=== PATIENT | male | born 1965 | race African-American/Black ===

== ENCOUNTER → 2024-08-28 | Outpatient (CLI) | payer MEDICAID, SELFPAY ==
--- NOTE | 2024-08-28 09:14 | US_ITS ---
PROCEDURE: ABDOMEN LIMITED 08/28/2024 REASON FOR EXAM: ABDOMINAL PAIN COMPARISON: None FINDINGS: Liver: Diffusely echogenic suggesting fatty infiltration. Hepatomegaly. The liver measures 18.5 cm. Gallbladder: Surgically absent. Common bile duct: The common bile duct measures 4 mm. . Pancreas: Visualized portions are unremarkable. The distal body and tail are obscured by bowel gas. Other: Visualized portions of the right kidney are unremarkable. No right upper quadrant ascites. The spleen measures 12 cm x 3.6 cm x 3.1 cm. US/Abdomen Limited IMPRESSION: Hepatomegaly and fatty infiltration of the liver. Status post cholecystectomy. The spleen is not enlarged. Reading Location: [facility]
== END | disposition home or self-care (01) ==
LOC: US 09:11
PROVIDERS: PCP Internal Medicine Infectious Disease; Referring Provider Nurse Practitioner Acute Care; Visit Provider Nurse Practitioner Acute Care
DX: R10.9 Unspecified abdominal pain (principal)
CPT/HCPCS: 76705

== ENCOUNTER → 2024-09-05 | Outpatient (CLI) | payer MEDICAID, SELFPAY ==
--- NOTE | 2024-09-05 08:08 | US_ITS ---
PROCEDURE: ELASTOGRAPHY PARENCHYMA/ORGAN, 09/05/2024 REASON FOR EXAM: HEPATOMEGALY, LIVER STEATOSIS COMPARISON: 08/28/2024 TECHNIQUE: Elastography was performed for non-invasive assessment of liver tissue stiffness utilizing a [employer] S-shear wave imaging unit. FINDINGS: Hepatic elastography: Number of measurements: 15 measurements across 3 regions, 5 measurements per region. US probe: CA1-7A. EQI median: 10.1 kPa EQI median velocity: 1.83 m/s IQR/Med: 12.8-29.4% (kPa) and 6.1-14.6% (m/s). If the IQR/Med is IQR/median >30% (for kPa) or >15% in m/s, the variance in the measurements is a large and the accuracy of the measurement may be in question. US/Elastography Parenchyma/Organ IMPRESSION: 1. Liver stiffness is 10.1 kPa. Per the below 2020 SRU criteria, this is sugges tive of compensated advanced chronic liver disease but requires further testing for confirmation. 2. Additional description as above. Assessment is per the Update to the SRU Liver Elastography Consensus Statement (2020) Note that the above assessment of liver fibrosis is vendor-neutral and intended for use in fibrosis related to viral etiologies and non-alcoholic fatty-liver disease (NAFLD); in causes other than viral hepat itis and NAFLD, the cutoff values are currently not well established. In some patients with NAFLD, the cutoff values for cACLD may be lower (7-9 kPa). Note also that in the setting of elevated LFTs, nonfasting or vascular congestion, the stage of lifer fibrosis may be overestimated. Previous SRU reference values: <1.37 m/s (5.7kPa): No to mild fibrosis 1.37 m/s - 2.2 m/s: Moderate to severe fibrosis >2.2 m/s (15kPa): Significant fibrosis / cirrhosis Reading Location: [id number]
--- OUTSIDE RECORDS SUMMARY | 2024-09-05 08:34 | XMS RPT_ITS | CCD ---
Author Organization [facility] Inform ion [facility] Care Team Providers Care [employer] Cracking Tester Name Role Phone BRIAN HAMM Unavailable Unava ilable JOSE GALEANA M.D. Unavailable JOSE Alfaro M.D. Unavailable UnavailLOU Chavez Unavailable Unavailable Unavailable Primary Care Provider UnavailIDA Anthony Attending Unavailable DAKOTA MALDONADO, DR GUERRERO Primary Care Physician KUNAL PRICE Attending Un available DAKOTA MALDONADO, DR GUERRERO Primary Care Unavailable Dakota MALDONADO, Dr. Guerrero Primary Care Provider [phone] Dakota MALDONADO, Dr. Guerrero Referring Provider Lou Gimenez Attending Provider KAYE HARDING MD Admitting UnavailKAYE Salcido MD Primary Care UnavailKAYE Salicdo MD Attending UnavailRHINA Vines MD Consulting Unavailable PROVIDER, UNKNOWN Consulting Unavailable PROVIDER, UNKNOWN Consulting Unavailable PROVIDER, UNKNOWN Consulting Unavailable KAYE HARDING MD Admitting UnavailKAYE Salcido MD Primary Care UnavailKAYE Salcido MD Attending UnavailRHINA Vines MD Consulting Unavailable PROVIDER, UNKNOWN Consulting Unavailable PROVIDER, UNKNOWN Consulting Unavailable PROVIDER, UNKNOWN Consulting Unavailable RHINA DUNCAN MD Admitting Unavailable RHINA DUNCAN MD Primary Care Unavailable RHINA DUNCAN MD Consulting Unavailable RHINA DUNCAN MD Attending Unavailable PROVIDER, UNKNOWN Consulting Unavailable PROVIDER, UNKNOWN Consulting Unavailable PROVIDER, UNKNOWN Consulting Unavailable Lou Gimenez Referring Provider Rhina Duncan Primary Care Unavailable Saman Duncaner Referring Unavailable Lou Paulino Attending [facility]available [facility] Unavailable Lou Paulino Attending Unavailable Lou Paulino Referring Unavailable [facility] Unavailable Lou Paulino Attending Unavailable Lou Paulino Referring Unavailable Medications Current Medications Medication Drug Class(es) Dates Sig (Normalized) Sig (Original) acetaminophen 325 mg oral capsule (3 sources) Start: 01-01-2023 acetaminophen 325 mg oral capsule Dose : 650 mg = 2 cap(s), Oral, q4h, PRN as needed for pain, # 20 cap(s), 0 Refill(s) Start Date: 01/01/23 Status: Ordered Quantity: 20.0 Unit: cap(s) Repeat number: 1 take 1 tablet by jey th every six hours as needed acetaminophen (TYLENOL) 325 mg tablet Ta ke 325 mg by mouth every 6 hours as needed. 0 Active Comment on above: Take 325 mg by mouth every 6 hours as needed. Budesonide-Formoterol (2 sources) Corticosteroid, beta2-Adrenergic Agonist Start: Budesonide-Formoterol (Symbicort) 160-4.5 mcg/actuation HFA aerosol inhaler Active 2 NMA INHALATION TWICE A DAY July 25, 2024 12:00am cholecalciferol 0.025 mg oral capsule (2 sources) Vitamin D Start: take 1 capsule by mouth once daily Cholecalciferol (Vitamin D3) 25 mcg (1,000 unit) capsule Active 50 ug PO daily July 25, 2024 12:00am cloZAPine 200 mg oral tablet (7 sources) Atypical Antipsychotic Start: End: take 1 tablet by mouth once daily Clozapine 200 mg tablet Active 500 mg PO .QD July 25, 2024 8:36am Start: 05-23-2020 Clozaril 100 m g oral tablet Dose : 500 mg = 5 tab(s), Oral, qHS, # 21 tab(s), 0 Refill(s) Start Date: 05/23/20 Status: Ordered Quantity: 21.0 Unit: tab(s) Repeat number: 1 Start: 11-05-2009 CLOZAPINE 25 M G TAB Take THREE (3) tablets four (4) times daily. 0 0 11/05/2009 Active Comment on above: Take THREE (3) table ts four (4) times daily. DULoxetine 20 mg delayed release oral capsule (2 sources) Serotonin and Norepinephrine Reuptake Inhibitor Start: take 2 capsules by mouth once daily Duloxetine (Cymbalta) 20 mg capsule,delayed release(DR/EC) Active 40 mg PO daily July 25, 2024 12:00am empagliflozin 25 mg oral tablet (5 sources) Sodium-Glucose Cotransporter 2 Inhibitor Start: take 1 tablet by mouth once daily Empagliflozin (Jardiance) 25 mg tablet Active 25 mg PO daily July 25, 2024 12:00am Start: 06-12-2021 Jardiance 10 m g oral tablet Dose : 10 mg = 1 tab(s), Oral, qAM, 0 Refill(s) Start Date: 06/12/21 Status: Ordered Repeat number: 1 famotidine 20 mg oral tablet (5 sources) Histamine-2 Receptor Antagonist Start: 07-24-2024 take 1 tablet by mouth once daily Famotidine 20 mg tablet Active 20 mg PO daily July 24, 2024 12:00am Start: 05-23-2020 famotidine 20 mg oral tablet Dose : 20 mg = 1 tab(s), Oral, BID, # 60 tab(s), 0 Refill(s) Start Date: 05/23/20 Status: Ordered Quantity: 60.0 Unit: tab(s) Repeat number: 1 fenofibrate 48 mg oral tablet (4 sources) Peroxisome Proliferator Receptor alpha Agonist Start: 07-25-2024 take 1 tablet by mouth once daily Fenofibrate Nanocrystallized 48 mg tablet Active 48 mg PO daily July 25, 2024 12:00am Start: 10-27-2023 fenofibrate 48 mg oral tablet Dose : 48 mg = 1 tab(s), Oral, qDay, # 90 tab(s), 0 Refill(s) Start Date: 10/27/23 Status: Ordered Quantity: 90.0 Unit: tab(s) Repeat number: 1 furosemide 20 mg oral tablet (5 sources) Loop Diuretic Start: 07-25-2024 take 1 tablet by mouth once daily Furosemide 20 mg tablet Active 20 mg PO daily July 25, 2024 12:00am Start: 05-24-2020 Lasix 20 mg or al tablet Dose : 20 mg = 1 tab(s), Oral, qDay, # 30 tab(s), 0 Refill(s) Start Date: 05/24/20 Status: Ordered Quantity: 30.0 Unit: tab(s) Repeat number: 1 3 ml insulin glargine 100 unt/ml pen injector (5 sources) Insulin Analog Start: 07-25-2024 Insulin Glargi ne (Lantus Solostar U-100 Insulin) 100 unit/mL (3 mL) insulin pen Active 25 U SC daily July 25, 2024 12:00am Start: 11-10-2022 LANTUS SOLOSTA R U-100 INSULIN 100 unit/mL (3 mL) Start: 03-12-2021 Lantus 100 uni ts/mL10 ml vial solution See Instructions, Subcutaneous qDay, 0 Refill(s) Start Date: 03/12/21 Status: Ordered Repeat number: 1 lactulose 667 mg/ml oral solution (5 sources) Osmotic Laxative Start: 07-25-2024 take 30 g by mouth twice daily Lactulose 10 gram/15 mL solution Active 30 g PO TWICE A DAY July 25, 2024 12:00am Start: 11-08-2022 lactulose 10 g sebastien/15 mL solution Start: 05-23-2020 take 1 dose by mouth twice chey ly lactulose 10 g/15 mL oral syrup Dose : 20 gram(s) = 30 mL, Oral, BID, # 420 mL, 0 Refill(s) Start Date: 05/23/20 Status: Ordered Quantity: 420.0 Unit: mL Repeat number: 1 metFORMIN hydrochloride 500 mg oral tablet (5 sources) Biguanide Start: 07-24-2024 take 1 tablet by mouth twice daily Metformin 500 mg tablet Active 500 mg PO TWICE A DAY July 24, 2024 12:00am Start: 11-05-2009 MetFORMIN (Eqv -Fortamet) 500 mg oral tablet, EXTENDED RELEASE Dose : 500 mg = 1 tab(s), Oral, BID, 0 Refill(s) Start Date: 03/12/21 Status: Ordered Repeat number: 1 Comment on above: Take one(1) tablet t wo(2) times daily. (BREAKFAST AND DINNER) metoprolol tartrate 50 mg oral tablet (5 sources) beta-Adrenergic Uli Start: 07-25-2024 take 1 tablet by mouth once daily Metoprolol Tartrate 50 mg tablet Active 50 mg PO daily July 25, 2024 12:00am Start: 10-08-2022 metoprolol suc cinate ER (TOPROL XL) 50 mg 24 hr tablet Start: 08-08-2020 metoprolol suc cinate 50 mg oral TABLET extended release Dose : 50 mg = 1 tab(s), Oral, qDay, Do not crush or chew (controlled release), # 30 tab(s), 5 Refill(s), Pharmacy: [facility] [place], 185.4, cm, 08/08/20 13:07:00 EDT, Height, kg, 08/08/20 13:07:00 EDT, Dosing Weight Start Date: 08/08/20 Status: Ordered Quantity: 30.0 Unit: tab(s) Repeat number: 6 nitroglycerin 0.4 mg sublingual tablet (5 sources) Nitrate Vasodilator Start: 07-24-2024 Nitroglyce rin 0.4 mg tablet, sublingual Active 0.4 mg SL Q5M as needed July 24, 2024 12:00am do not exceed 3 doses per episode Start: 05-23-2020 nitroglycerin 0.4 mg sublingual tablet 0.4 mg Dose = 1 tab(s), Sublingual, q5min, PRN as needed for chest pain, not to exceed 3 doses/15 min--if pain persists, seek medical attention, # 25 tab(s), 0 Refill(s) Start Date: 05/23/20 Status: Ordered Quantity: 25.0 Unit: tab(s) Repeat number: 1 Comment on above: as directed. microencapsulated potassium chloride 20 meq extended release oral tablet (5 sources) Start: 07-24-2024 Potassium Chloride (Klor-Con M20) 20 mEq tablet,ER particles/crystals Active 20 meq PO daily July 24, 2024 12:00am Start: 11-05-2009 POTASSIUM CHLO RIDE SR 10 MEQ TAB Take one(1) tablet daily. 0 0 11/05/2009 Active Start: 03-30-2008 potassium chlo ride 10 mEq capsule, ext release Dose : 20 mEq = 2 cap(s), Oral, Daily, current med (Hx) Start Date: 03/30/08 Status: Ordered Repeat number: 1 Comment on above: Take one(1) tablet d aily. sacubitril 97 mg / valsartan 103 mg oral tablet (4 sources) Angiotensin 2 Receptor Uli Start: 07-25-2024 Sacubitril-Valsartan (Entresto) 97-103 mg tablet Active 1 {tbl} PO TWICE A DAY July 25, 2024 12:00am Start: 11-06-2020 take 1 tablet by jey twice daily Entresto 97 mg-103 mg oral tablet Dose = 1 tab(s), Oral, BID, # 60 tab(s), 4 Refill(s), Pharmacy: [facility] [place], 185.4, cm, 11/06/20 13:00:00 EDT, Height, kg, 11/06/20 13:00:00 EDT, Dosing Weight Start Date: 11/06/20 Status: Ordered Quantity: 60.0 Unit: tab(s) Repeat number: 5 Senna Plus 50 mg-8.6 mg oral tablet (2 sources) Start: 05-23-2020 take 1 tablet by mouth twice daily Senna Plus 50 mg-8.6 mg oral tablet Dose = 2 tab(s), Oral, BID, 0 Refill(s) Start Date: 05/23/20 Status: Ordered Repeat number: 1 sennosides, shelter 8.6 mg oral capsule (2 sources) Start: 07-24-2024 take 1 capsule by mouth once daily as needed Sennosides (Senna) 8.6 mg capsule Active 8.6 mg PO daily as needed July 24, 2024 12:00am Symbicort 160 mcg-4.5 mcg/inh Inhaler (2 sources) Start: 10-27-2023 take 1 dose by inhalation twice daily Symbicort 160 mcg-4.5 mcg/inh Inhaler Dose = 2 puff(s), Inhalation, BID, # 10.2 gram(s), 0 Refill(s) Start Date: 10/27/23 Status: Ordered Quantity: 10.2 Unit: g Repeat number: 1 divalproex sodium 500 mg delayed release oral tablet (5 sources) Mood Stabilizer, Anti-epilepti c Agent Start: 07-24-2024 take 1 tablet by mouth once daily Divalproex (Depakote) 500 mg tablet,delayed release (DR/EC) Active 500 mg PO .QD July 24, 2024 12:00am Start: 03-10-2024 divalproex sod ium 500 mg oral tablet, extended release 0 Refill(s) Start Date: 03/10/24 Status: Ordered Repeat number: 1 Start: 11-05-2009 DIVALPROEX 500 MG TAB, DELAYED RELEASE Take two(2) tablets twice daily. 0 0 11/05/2009 Active Comment on above: Take two(2) tablets twice daily. Vitamin D3 50,000 intl units (1250 mcg) oral capsule (2 sources) Start: 07-04-2020 Vitamin D3 50,000 intl units (1250 mcg) oral capsule Dose : 50,000 International_Unit = 1 cap(s), Oral, qmonth, # 12 cap(s), 0 Refill(s) Start Date: 07/04/20 Status: Ordered Quantity: 12.0 Unit: cap(s) Repeat number: 1 Completed/Discontinued Medications Medication Drug Class(es) Dates Sig (Normalized) Sig (Original) aspirin 81 mg oral tablet (3 sources) Platelet Aggregation Inhibitor, Nonsteroidal Anti-inflammatory Drug Start: 07-24-2024 End: 07-25-2024 take 1 tablet by mouth once daily Aspirin 81 mg tablet Discontinued 81 mg PO daily July 24, 2024 12:00am July 25, 2024 8:57am aspirin 81 mg ch ewable tablet as directed. 0 Active Comment on above: as directed. atorvastatin 10 mg oral tablet (3 sources) HMG-CoA Reductase Inhibitor Start: End: take 1 tablet by mouth once daily Atorvastatin (Lipitor) 10 mg tablet Discontinued 10 mg PO daily July 24, 2024 12:00am July 25, 2024 8:57am Start: 11-05-2009 ATORVASTATIN 1 0 MG TAB Take one(1) tablet at bedtime. 0 0 11/05/2009 Active Comment on above: Take one(1) tablet a t bedtime. benztropine mesylate 0.5 mg oral tablet (3 sources) Anticholinergic, Antihistamine Start: End: take 1 tablet by mouth once daily Benztropine 0.5 mg tablet Discontinued 0.5 mg PO daily July 24, 2024 12:00am July 25, 2024 8:58am Start: 11-05-2009 BENZTROPINE 1 MG TAB Take one(1) tablet two(2) times daily. 0 0 11/05/2009 Active Comment on above: Take one(1) tablet t wo(2) times daily. citalopram 20 mg oral tablet (2 sources) Serotonin Reuptake Inhibitor Start: 11-05-2009 CITALOPRAM 20 MG TAB Take one(1) tablet daily. TAKE WITH ONE 10 MG TABLET TO TOTAL 30 MG DAILY 0 0 11/05/2009 Active Start: 11-05-2009 CITALOPRAM 10 MG TAB Take one(1) tablet daily. 0 0 11/05/2009 Active Comment on above: Take one(1) tablet d aily. TAKE WITH ONE 10 MG TABLET TO TOTAL 30 MG DAILY Take one(1) tablet d aily. dilTIAZem hydrochloride 120 mg oral tablet (3 sources) Calcium Channel Uli Start: End: 5 take 1 tablet by mouth once daily Diltiazem Hcl 120 mg tablet Discontinued 120 mg PO .QD July 24, 2024 12:00am July 25, 2024 8:58am Start: 11-05-2009 DILTIAZEM SR 1 20 MG 24 HR CAP Take one(1) tablet daily. 0 0 11/05/2009 Active Comment on above: Take one(1) tablet d aily. docusate sodium 50 mg / sennosides, shelter 8.6 mg oral tablet (1 source) take 1 tablet by mouth twice daily as needed senna-docusate (SENNA-S) 8.6-50 mg per tablet 1 tablet as needed Orally Twice a day 0 Active Comment on above: 1 tablet as needed O rally Twice a day fluticasone propionate 0.05 mg/actuat metered dose nasal spray (1 source) Corticosteroid Start: take 1 spray(s) nasal route once daily FLUTICASONE 50 MCG/ACTUATION NASAL SPRAY, SUSP ONE SPRAY IN EACH NOSTRIL DAILY 0 0 11/05/2009 Active Comment on above: ONE SPRAY IN EACH NO STRIL DAILY haloperidol 5 mg oral tablet (1 source) Typical Antipsychotic Start: HALOPERIDOL 5 MG TAB Take one(1) tablet two(2) times daily. 0 0 11/05/2009 Active Comment on above: Take one(1) tablet t wo(2) times daily. hydroCHLOROthiazide 25 mg / triamterene 37.5 mg oral capsule (3 sources) Potassium-sparing Diuretic, Thiazide Diuretic Start: 025 End: 025 Triamterene-Hydroc hlorothiazid 37.5-25 mg capsule Discontinued 1 NMA PO EVERY MORNING July 24, 2024 12:00am July 25, 2024 8:59am Start: 11-05-2009 TRIAMTERENE-HY DROCHLOROTHIAZIDE 37.5 MG-25 MG TAB Take one(1) tablet daily. 0 0 11/05/2009 Active Comment on above: Take one(1) tablet d aily. isosorbide dinitrate 20 mg oral tablet (1 source) Nitrate Vasodilator Start: 0 ISOSORBIDE DINITRATE 20 MG TAB Take one(1) tablet two(2) times daily. ( 9 am AND 4 pm ) 0 0 11/05/2009 Active Comment on above: Take one(1) tablet t wo(2) times daily. ( 9 am AND 4 pm ) lisinopril 5 mg oral tablet (2 sources) Angiotensin Converting Enzyme Inhibitor Start: 5 End: 5 take 1 tablet by mouth at bedtime Lisinopril 5 mg tablet Discontinued 5 mg PO AT BEDTIME July 24, 2024 12:00am July 25, 2024 8:59am melatonin 3 mg oral capsule (2 sources) Start: 5 End: 5 take 1 capsule by mouth at bedtime as needed Melatonin 3 mg capsule Discontinued 3 mg PO BEDTIME as needed July 24, 2024 12:00am July 25, 2024 8:59am QUEtiapine 300 mg oral tablet (2 sources) Atypical Antipsychotic Start: 0 QUETIAPINE 300 MG TAB Take one(1) tablet at bedtime. 0 0 11/05/2009 Active Comment on above: Take one(1) tablet a t bedtime. Take one(1) tablet i n the morning. topiramate 100 mg oral tablet (1 source) Start: 0 TOPIRAMATE 100 MG TAB Take one(1) tablet two(2) times daily. 0 0 11/05/2009 Active Comment on above: Take one(1) tablet t wo(2) times daily. Problems Active Problems Problem Classification Problem Date Documented Da te Episodic/Chronic Abdominal pain (6 sources) Abdominal pain; Translations: [Unspecified abdominal pain] Onset: 5 07-25-2024 Episodic Chronic obstructive pulmonary disease and bronchiectasis (3 sources) Chronic obstructive lung disease; Translations: [Chronic obstructive pulmonary disease, unspecified] Onset: 0 03-12-2021 Chronic Congestive heart failure; nonhypertensive (2 sources) Heart failure with normal ejection fraction 10-28-2023 Chronic Coronary atherosclerosis and other heart disease (2 sources) Coronary arteriosclerosis 03-12-2021 Chronic Deficiency and other anemia (2 sources) Anemia 03-12-2021 Episodic Diabetes mellitus without complication (2 sources) Type 2 diabetes mellitus 03-12-2021 Chronic Disorders of lipid metabolism (2 sources) Dyslipidemia 10-28-2023 Chronic Essential hypertension (1 source) Hypertensive disorder; Translations: [Essential (primary) hypertension] Onset: 0 Chronic Miscellaneous mental health disorders (2 sources) 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 Chronic Other and unspecified benign neoplasm (4 sources) History of polyp of colon; Translations: [History of colonic polyps] 07-25-2024 Episodic Comment on above: 10/2019 hyperplastic rectal polyp Other gastrointestinal disorders (2 sources) Heartburn; Translations: [Heartburn] 07-24-2024 Episodic Other liver diseases (1 source) Steatosis of liver; Translations: [Fatty (change of) liver, not elsewhere classified] 08-28-2024 Chronic Other liver diseases (1 source) Fatty (change of) liver, not elsewhere classified; Translations: [Fatty (change of) liver, not elsewhere classified] Onset: 5 Chronic Other male genital disorders (2 sources) Disorder of male genital organ; Translations: [Other hydrocele] Onset: 3 11-13-2022 Episodic Other male genital disorders (1 source) Other hydrocele; Translations: [Other hydrocele] Onset: 3 Episodic Emily-; endo-; and myocarditis; cardiomyopathy (except that caused by tuberculosis or sexually transmitted disease) (2 sources) Cardiomyopathy 05-24-2020 Chronic Emily-; endo-; and myocarditis; cardiomyopathy (except that caused by tuberculosis or sexually transmitted disease) (2 sources) Pericardial effusion 05-24-2020 Episodic Residual codes; unclassified (2 sources) Sleep apnea 03-05-2024 Chronic Residual codes; unclassified (2 sources) Sleep apnea, unspecified; Translations: [Sleep apnea, unspecified] Onset: 5 Chronic Residual codes; unclassified (2 sources) Increased body mass index 11-06-2020 Episodic Residual codes; unclassified (1 source) Acquired absence of other specified parts of digestive tract; Translations: [Acquired absence of other specified parts of digestive tract] Onset: 5 Episodic Schizophrenia and other psychotic disorders (2 sources) Schizophrenia 05-24-2020 Chronic Unclassified (1 source) Unknown / UNK(Unknown) Onset: 8 Unclassified (1 source) Personal history of colon polyps, unspecified; Translations: [Personal history of colon polyps, unspecified] Onset: 5 Past or Other Problems Problem Classification Problem Date Documented Da te Episodic/Chronic Diabetes mellitus without complication (1 source) Hyperglycemia; Translations: [Hyperglycemia, unspecified] Onset: 11-05-2009 Episodic Pneumonia (1 source) Pneumonia Onset: 08-25-2017 Results Test Name Value Interpretation Reference Range Facility Abdomen Limitedon 08-28-2024 Abdomen Limited [facility] [address] [place] [address] [id number] Abdomen Limited MR#: [id number] Acct: [id number] Name: GEREMIAS GALEANO Rep #: [id number] : 1965 M 58 From: Shaheen miller MD PCP: Dr. Rhina Duncan MD Status: REG CLI Study: Abdomen Limited Date of Exam: 08/28/24 Exam# [id number] Ordering Dr: Lou Paulino SAMPLE SUPERVISOR- C PROCEDURE: ABDOMEN LIMITED 08/28/2024 REASON FOR EXAM: ABDOMINAL PAIN COMPARISON: None FINDINGS: Liver: Diffusely echogenic suggesting fatty infiltration. Hepatomegaly. The liver measures 18.5 cm. Gallbladder: Surgically absent. Common bile duct: The common bile duct measures 4 mm. . Pancreas: Visualized portions are unremarkable. The distal body and tail are obscured by bowel gas. Other: Visualized portions of the right kidney are unremarkable. No right upper quadrant ascites. The spleen measures 12 cm x 3.6 cm x 3.1 cm. US/Abdomen Limited IMPRESSION: Hepatomegaly and fatty infiltration of the liver. Status post cholecystectomy. The spleen is not enlarged. Reading Location: [id number] CC: SAMPLE SUPERVISORAbdiel Paulino; Dr. Rhina Duncan MD Applications Manager: Signed Normal [facility] CBC + DIFFon 08-14-2024 Baso # 0.02 x10EE3/UL Normal 0.00 - 0.10 [facility] Comment on above: Performed By: #### 2 [id number] #### [address] [address] Basophils/100 WBC (Bld) 0.3 % Normal 0.0 - 2.0 [facility] Comment on above: Performed By: #### 2 [id number] #### [facility],[address] [place] [address] CBC + DIFF Normal [facility] Comment on above: Result Comment: CBC- COMPLETE BLOOD COUNT Performed By: #### 2 [id number] #### [facility],[address] [place] [address] EO # 0.19 x10EE3/UL Normal 0.00 - 0.50 [facility] Comment on above: Performed By: #### 2 [id number] #### [address] [address] Eosinophils/100 WBC (Bld) 2.4 % Normal 0.0 - 7.0 [facility] Comment on above: Performed By: #### 2 [id number] #### [address] [address] Erythrocyte distribution width (RBC) [Ratio] 13.4 % Normal 12.0 - 15.6 [facility] Comment on above: Performed By: #### 2 [id number] #### [facility],[address] [place] [address] Hematocrit (Bld) [Volume fraction] 45.7 % Normal 40.0 - 52.0 [facility] Comment on above: Performed By: #### 2 [id number] #### [facility],[address] [place] [address] Hemoglobin (Bld) [Mass/Vol] 15.7 g/dL Normal 13.0 - 17.5 [facility] Comment on above: Performed By: #### 2 [id number] #### [facility],[address] [place] [address] Lymph # 4.54 x10EE3/UL High 0.80 - 2.80 [facility] Comment on above: Performed By: #### 2 [id number] #### [facility],[address] [place] [address] Lymphocytes/100 WBC (Bld) 57.2 % High 20.0 - 45.0 [facility] Comment on above: Performed By: #### 2 [id number] #### [facility],[address] [place], [place] [id number] MANUAL DIFF N/A Normal [facility] Comment on above: Performed By: #### 2 [id number] #### [facility],[address] [place], [place] [id number] MCH (RBC) [Entitic mass] 30 pg Normal 27 - 33 [facility] Comment on above: Performed By: #### 2 09090 #### [place] [id number] MCHC 34 X10 3 Normal 32 - 36 [facility] Comment on above: Performed By: #### 2 [id number] #### [facility],[address] [place], [place] [id number] MCV (RBC) [Entitic vol] 87 fL Normal 81 - 98 [facility] Comment on above: Performed By: #### 2 [id number] #### [facility],[address] [place] [address] Crook # 0.67 x10EE3/UL Normal 0.20 - 1.00 [facility] Comment on above: Performed By: #### 2 08503 #### [facility],[address] [place] [address] MONOS % 8.4 % Normal 0.0 - 10.0 [facility] Comment on above: Performed By: #### 2 [id number] #### [place] [address] Morphology Tu (Bld) [Interp] N/A Normal [facility] Comment on above: Performed By: #### 2 24520 #### [place] [address] Neut # 2.51 x10EE3/UL Normal 1.50 - 7.10 [facility] Comment on above: Performed By: #### 2 96443 #### [place] [address] Neutrophils/100 WBC (Bld) 31.7 % Low 46.0 - 76.0 [facility] Comment on above: Performed By: #### 2 [id number] #### [facility],[address] [place] [address] PLATELET 260 x10EE3/UL Normal 150 - 450 [facility] Comment on above: Performed By: #### 2 [id number] #### [place] [address] Platelet mean volume (Bld) [Entitic vol] 8.4 fL Normal 6.4 - 10.5 [facility] Comment on above: Result Comment: AUTO MATED DIFFERENTIAL Performed By: #### 2 92961 #### [address],[place] [address] RBC 5.26 x 10EE6/UL Normal 4.50 - 6.00 [facility] Comment on above: Performed By: #### 2 [id number] #### [facility],[address] [place] [address] WBC 7.9 x 10EE3/UL Normal 4.5 - 10.8 [facility] Comment on above: Performed By: #### 2 43535 #### [facility],[address] [place] [address] 87911 TESTOSTERONE, TOTAL & FREE, SERUM [CCL]on 08-03-2024 TESTOSTERONE, TOTAL & FREE, SERUM [CCL] Normal [facility] Comment on above: Result Comment: _TES TOSTERONE, TOTAL AND FREE, SERUM_ SEE SCANNED REPORT Performed By: #### 2 [id number] #### [facility],[address] [place] [address] 29939 Gastroenterology Visit Repor ton 07-25-2024 Gastroenterology Visit Report [facility]astroenterology [address] [place] [address] OFFICE VISIT Date of Service: 07/25/24 MR#: [id number] Acct: [id number] Name: GEREMIAS GALEANO Rep #: [id number] : 1965 Provider: SHEILA alvarez Age/Sex: 58/M [place] [facility] [place]: Signed Intake Vital Signs 07/25/24 08:48 Height 6 ft Weight: 300 lb BMI 40.6 BP 127/85 H Respiration 20 H Pulse 103 H Pulse Oximetry (%) 93 Oxygen Delivery Method room air Intake Visit Reasons: Pre colon Furnace Erector Required: No Accompanied by: Caregiver Is patient in pain?: No Allergies No Known Allergies Allergy (Unverified 07/25/24 08:35) Medications ???Medication ???Instructions ???Recorded ???Confirmed ???Type divalproex 500 mg tablet,delayed 500 mg PO .QD 07/24/24 07/24/24 Hi story release (Depakote) famotidine 20 mg tablet 20 mg PO QDAY 07/24/24 07/24/24 Hi story metformin 500 mg tablet 500 mg PO BID 07/24/24 07/24/24 Hi story nitroglycerin 0.4 mg sublingual 0.4 mg sublingual Q5M PRN 07/24/24 07/24/24 History tablet potassium chloride 20 mEq 20 meq PO QDAY 07/24/24 07/24/24 H istory tablet,extended release(part/cryst) (Klor-Con M) sennosides 8.6 mg capsule (senna) 8.6 mg PO QDAY PRN 07/24/2407/24 History budesonide-formoterol HFA 160 2 puff inhalation BID 07/25/24 History mcg-4.5 mcg/actuation aerosol inhaler (Symbicort) cholecalciferol (vitamin D3) 25 50 mcg PO QDAY 07/25/24 07/25/24 H istory mcg (1,000 unit) capsule clozapine 200 mg tablet 500 mg PO .QD 07/25/24 07/25/24 Hi story duloxetine 20 mg capsule,delayed 40 mg PO QDAY 07/25/24 07/25/24 Hi story release (Cymbalta) empagliflozin 25 mg tablet 25 mg PO QDAY 07/25/24 07/25/24 Hi story (Jardiance) fenofibrate nanocrystallized 48 mg 48 mg PO QDAY 07/25/24 07/25/24 History tablet furosemide 20 mg tablet 20 mg PO QDAY 07/25/24 07/25/24 Hi story insulin glargine 100 unit/mL (3 25 unit subcut QDAY 07/25/2407/25 History mL) subcutaneous pen (Lantus Solostar U-100 Insulin) lactulose 10 gram/15 mL oral 30 g PO BID 07/25/24 07/25/24 Hist ory solution metoprolol tartrate 50 mg tablet 50 mg PO QDAY 07/25/24 07/25/24 Hi story sacubitril 97 mg-valsartan 103 mg 1 tab PO BID 07/25/24 07/25/24 Hi story tablet (Entresto) Nurse's Note: Not having any problems with bowels. Some abdominal discomfort. [facility] Medical History GERD without esophagitis Bipolar disorder COPD (chronic obstructive pulmonary disease) Asymptomatic gallstones Unintentional weight loss Hyperplastic colon polyp Type 2 diabetes mellitus Osteoarthritis DOMENICO (obstructive sleep apnea) Schizophrenia Hyperlipidemia Angina pectoris HPI HPI Details: GEREMIAS GALEANO, is a 58 M who presents to the office today for 10/19/2019 Colon (rectal hyperplastic) EGD (unremarkable) 2019 - recall 5-10 years - seen in office today with FACE B[facility]ER from [facility] - denies family h/o colon CA - reports he has had intermittent epigastric abdominal pain ever since CCX - epigastric burning pain, exacerbated with participating in activities, denies any radiation of pain - denies any N/V - denies any dysphagia - denies any bleeding - he has a BM daily, denies any constipation or diarrhea - denies any weight loss - he takes Famotidine 20mg QD - denies any pain with eating - h/o PEG ROS Const Constitutional: Positive for headache(s); No fatigue, fever(s) or weight change ENT ENT: Positive for headache(s); No difficulty swallowing Gastro GI: No abdominal pain, belching, bloating, change in bowel habits, change in stool character, coffee ground emesis, constipation, cramping, diarrhea, heartburn, difficulty swallowing, feeling full early, excessive flatus, incontinent of stools, Vomiting blood/hematemesis, Blood in stool, loose stools, Black,tarry stools, nausea/dyspepsia, pain with swallowing, vomiting or other Musc Musculoskeletal: No joint pain Skin Skin: No yellowing of the eye or itchy eyes Neuro Neurology: Positive for headache(s) Psych Psychiatric: No anxiety and No depression Endo Endocrine: No fatigue or weight change Aller/Imm Allergy/Immunologic: No itchy eyes Bravo/Lymp Hematologic/Lymphatic: No easy bleeding or easy bruising Exam Const General: cooperative, healthy appearing, no acute distress and well developed Nutritional Appearance: well nourished and obese Orientation: alert and oriented x3 HENMT Head: normocephalic Ears: hearing grossly normal bilaterally Mouth: moist mucous membranes Eyes Conjunctivae: conjunctivae normal Sclera: sclerae normal Neck Neck: normal visual inspection, full ROM and trachea m (more content not included)... Normal [facility] CV ECHO COMPLETE WITHOUT CON TRASTon 07-20-2024 CV ECHO COMPLETE WITHOUT CONTRAST [place] [address] Patient: GEREMIAS GALEANO Phone#: : 1965 Age: 58 Gender: M Pt. Type: Out Account: [id number] Location: 052 Ordering: KAYE Randhawa RIANAKAINRafaela Exam Date: 07/20/2024/8:49 Family Phys: RHINA DUNCAN Charge Code: [id number] Physician: Dillingham Order #: [id number] Dose#: PROCEDURE: ECHOCARDIOGRAM WITH DOPPLER AND COLOR FLOW HISTORY: Patient is a 58-year-old male with history of cardiomyopathy INDICATIONS: Cardiomyopathy COMPARISON: None. TECHNIQUE: A 2-D ultrasound, color spectral Doppler and M-mode evaluation of the heart and great vessels. PATIENT MEASUREMENTS: Height (in.): 72 BSA: 2.5 Weight (lbs.): 300 BP: 137/87 Business Info Consultant: STEPHANIE M MODE 2D MEASUREMENTS AND CALCULATIONS: LVIDd: 4.9 cm LVIDs: 3.5 cm IVSd: 1.1 cm LVPWd: 1.1 cm LVOT diam: 2.4 cm FS: 31 % Ao Root diam: 3.65 cm LA diam: 3.6 cm LA Volume Index: 14 mL/m2 LA A4 Area: 11.22 cm2 RA A4 Area: 14.5 cm2 RVDd: 3.96 cm TAPSE: 19 mm DOPPLER MEASUREMENTS AND CALCULATIONS MITRAL MV E MAX ronny: 0.59 m/s MV A MAX ronny: 0.83 m/s MV E-A ratio: 0.71 MV V2 max: 0.87 m/s MV max P.03 mm[Hg] MV V2 mean: 0.51 m/s Continued Report - Page 2 of 3 Patient: GEREMIAS GALEANO Phone#: : 1965 Age: 58 Gender: M Pt. Type: Out Account: [id number] Location: 052 Ordering: KAYE CARRILLORafaela Exam Date: 07/20/2024/8:49 Family Phys: RHINA DUNCAN Charge Code: [id number] Physician: Dillingham Order #: [id number] Dose#: MV mean P.27 mm[Hg] MV V2 VTI: 15.76 cm Lat Peak E' Ronny 6 cm/sec Septal Peak E' RONNY 7 cm/sec E/E' lateral 9 E/E' medial 8 AORTIC Ao V2 max: 1.28 m/s Ao max P.50 mm[Hg] LV V1 Max 0.98 m/s LV V1 Max PG 3.87 mm[Hg] PULMONIC PA V2 Max 0.80 m/s PA Max PG 2.56 mm[Hg] TRICUSPID TR Max Ronny 1.66 m/s TR max PG 11.37 mm[Hg] RVSP 2D/M-MODE AND COLOR FLOW LEFT VENTRICLE: There is mild concentric left ventricular hypertrophy. Left ventricle is normal size. Systolic ejection fraction is 55-60% with normal wall motion. There is grade 1 diastolic dysfunction seen WALL MOTION: 1 - Basal anterior: Normal. 7 - Mid anterior: Normal. 13 - Apical anterior: Normal. 2 - Basal anteroseptal: Normal. 8 - Mid anteroseptal: Normal. 14 - Apical septal: Normal. 3 - Basal inferoseptal: Normal. 9 - Mid inferoseptal: Normal. 15 - Apical inferior: Normal. 4 - Basal inferior: Normal. 10-Mid inferior: Normal. 16 - Apical lateral: Normal. 5 - Basal inferolateral: Normal. 11-Mid inferolateral: Normal. 6 - Basal anterolateral: Normal. 12-Mid anterolateral: Normal. RIGHT VENTRICLE: Right ventricle is normal in size and systolic function. LEFT ATRIUM: Left atrium is normal size. RIGHT ATRIUM: Right atrium is normal size. ATRIAL SEPTUM: There is no large interatrial shunt seen. PFO was not assessed MITRAL VALVE: Mitral valve appears normal structure. There is trivial regurgitation no stenosis seen. TRICUSPID VALVE: Tricuspid valve is normal structure. There is no regurgitation or stenosis seen. AORTIC VALVE: Aortic valve is trileaflet. There is no regurgitation or stenosis seen. PULMONIC VALVE: Inadequately visualized. Doppler shows no significant regurgitation or stenosis seen AORTIC ROOT: Aortic root is borderline dilated at 3.7 cm. AORTIC ARCH: Inadequately visualized Continued Report - Page 3 of 3 Patient: GEREMIAS GALEANO Phone#: : 1965 Age: 58 Gender: M Pt. Type: Out Account: [id number] Location: 052 Ordering: KAYE HARDING Exam Date: 07/20/2024/8:49 Family Phys: RHINA DUNCAN Charge Code: [id number] Physician: Dillingham Order #: [id number] Dose#: DESC THORACIC AORTA: Inadequately visualized. Doppler shows normal flow IVC/SVC: IVC is normal size more than 50% collapse of inspiration. Estimated atrial pressure is 3 mm Hg. PULMONARY VEINS: Normal pulmonic vein flow. PERICARDIUM: There is no pericardial effusion seen. CONCLUSION: 1. There is mild concentric left ventricular hypertrophy. Left ventricle is normal size. Systolic ejection fraction 55-60% with normal wall motion. 2. There are no significant valvular dysfunction seen. 3. Right ventricle is normal in size and systolic function. 4. TR velocity is inadequate to calculate for right ventricular systolic pressure. Dictated by: KAYE HARDING MD on 07/20/2024 at 11:06 Approved by: KAYE HARDING MD on 07/20/2024 at 11:20 Normal [facility] CBC + DIFFon 07-17-2024 Baso # 0.02 x10EE3/UL Normal 0.00 - 0.10 [facility] Comment on above: Performed By: #### 2 39345 #### [facility],[address] [place], [place] [id number] Basophils/100 WBC (Bld) 0.2 % Normal 0.0 - 2.0 [facility] Comment on above: Performed By: #### 2 95399 #### [facility],[address] [place], [place] [id number] CBC + DIFF Normal [facility] Comment on above: Result Comment: CBC- COMPLETE BLOOD COUNT Performed By: #### 2 67321 #### [facility],[address] [place], [place] [address] EO # 0.26 x10EE3/UL Normal 0.00 - 0.50 [facility] Comment on above: Performed By: #### 2 64100 #### [facility],[address] [place] [address] 56699 Eosinophils/100 WBC (Bld) 3.0 % Normal 0.0 - 7.0 [facility] Comment on above: Performed By: #### 2 92928 #### [facility],[address] [place] [address] 16949 Erythrocyte distribution width (RBC) [Ratio] 14.0 % Normal 12.0 - 15.6 [facility] Comment on above: Performed By: #### 2 51744 #### [facility],[address] [place] [address] 82562 Hematocrit (Bld) [Volume fraction] 47.7 % Normal 40.0 - 52.0 [facility] Comment on above: Performed By: #### 2 21012 #### [facility],[address] [place] [address] 33409 Hemoglobin (Bld) [Mass/Vol] 15.9 g/dL Normal 13.0 - 17.5 [facility] Comment on above: Performed By: #### 2 79100 #### [facility],[address] [place] [address] 44391 Lymph # 5.10 x10EE3/UL High 0.80 - 2.80 [facility] Comment on above: Performed By: #### 2 35146 #### [facility],[address] [place] [address] 90936 Lymphocytes/100 WBC (Bld) 58.9 % High 20.0 - 45.0 [facility] Comment on above: Performed By: #### 2 44974 #### [facility],[address] [place] [address] 93638 MANUAL DIFF N/A Normal [facility] Comment on above: Performed By: #### 2 62483 #### [facility],[address] [place] [address] 05315 MCH (RBC) [Entitic mass] 29 pg Normal 27 - 33 [facility] Comment on above: Performed By: #### 2 26382 #### [facility],[address] [place] [address] 12134 MCHC 33 X10 3 Normal 32 - 36 [facility] Comment on above: Performed By: #### 2 10450 #### [facility],[address] [place] [address] 63590 MCV (RBC) [Entitic vol] 87 fL Normal 81 - 98 [facility] Comment on above: Performed By: #### 2 52833 #### [facility],[address] [place] [address] 41623 Crook # 0.58 x10EE3/UL Normal 0.20 - 1.00 [facility] Comment on above: Performed By: #### 2 35909 #### [facility],[address] [place] [address] 50528 MONOS % 6.7 % Normal 0.0 - 10.0 [facility] Comment on above: Performed By: #### 2 53355 #### [facility],[address] [place] [address] 21703 Morphology Tu (Bld) [Interp] N/A Normal [facility] Comment on above: Performed By: #### 2 86359 #### [facility],[address] [place] [address] 65404 Neut # 2.70 x10EE3/UL Normal 1.50 - 7.10 [facility] Comment on above: Performed By: #### 2 01313 #### [facility],[address] [place] [address] 12208 Neutrophils/100 WBC (Bld) 31.2 % Low 46.0 - 76.0 [facility] Comment on above: Performed By: #### 2 79133 #### [facility],[address] [place] [address] 90193 PLATELET 263 x10EE3/UL Normal 150 - 450 [facility] Comment on above: Performed By: #### 2 07663 #### [facility],[address] [place], [place] [id number] Platelet mean volume (Bld) [Entitic vol] 8.3 fL Normal 6.4 - 10.5 [facility] Comment on above: Result Comment: AUTO MATED DIFFERENTIAL Performed By: #### 2 37611 #### [facility],[address] [place], [place] [address] RBC 5.48 x 10EE6/UL Normal 4.50 - 6.00 [facility] Comment on above: Performed By: #### 2 77375 #### [facility],[address] [place] [address] 86787 WBC 8.7 x 10EE3/UL Normal 4.5 - 10.8 [facility] Comment on above: Performed By: #### 2 08744 #### [place] [id number] TESTOSTERONE, FREE AND TOTAL , BY EQUILIBRIUM DIALYSIS AND MASS SPECTROMETRYon 07-17-2024 Testosterone [Mass/Vol] 212.7 ng/dL Low 240.0-950. 0 [facility] Comment on above: Order Comment: Speci men Type: BLOOD SPECIMEN Ordering Facility: [facility] Address: [address] [place] [address] Result Comment: Test ing performed by Liquid Chromatography-Tandem Mass Spectrometry (LC-MS/MS). This test was developed, and its performance characteristics determined by the [facility] Department of Pathology and Laboratory Medicine. It has not been cleared or approved by the FDA. The [facility] Department of Pathology and Laboratory Medicine is regulated under CLIA as qualified to perform high-complexity testing. This test is used for clinical purposes. It should not be regarded as investigational or for research. Performed By: #### T ESTTF #### [facility] CLIA [id number] [address] [place] [address] [place] Testosterone Free [Mass/Vol] Normal [facility] Comment on above: Order Comment: Speci men Type: BLOOD SPECIMEN Ordering Facility: [facility] Address: [address] [place], [place] [id number] Result Comment: Unab le to assay. Analytical difficulty Performed By: #### T ESTTF #### [facility] CLIA [id number] [address] [place] [address] [place] LIPID PROFILEon 07-11-2024 Cholesterol [Mass/Vol] 179 mg/dL Normal 0 - 240 [facility] Comment on above: Performed By: #### 2 36505 #### [facility],[address] [place] [address] 53906 Cholesterol in HDL [Mass/Vol] 37 mg/dL Low 40 - 60 [facility] Comment on above: Performed By: #### 2 61817 #### [facility],[address] [place] [address] 82707 Cholesterol in LDL [Mass/Vol] 103 mg/dL Normal 0 - 129 [facility] Comment on above: Performed By: #### 2 64661 #### [facility],[address] [place] [address] 86048 Cholesterol.total/Cho lesterol in HDL [Mass ratio] 4.8 {ratio} Normal 0.0 - 5.0 [facility] Comment on above: Performed By: #### 2 04916 #### [facility],[address] [place] [address] 05441 Lipid 1996 panel Normal [facility] Comment on above: Result Comment: LIPI D PROFILE Performed By: #### 2 14697 #### [facility],[address] [place] [address] 28347 Triglyceride [Mass/Vol] 195 mg/dL High 0 - 150 [facility] Comment on above: Performed By: #### 2 18748 #### [facility],[address] [place] [address] 09460 TESTOSTERONE [CCL]on 025 Testosterone [Mass/Vol] 195 ng/dL Normal 193-824 [facility] Comment on above: Result Comment: A te stosterone level in the 193-320 ng/dL range with associated clinical symptoms is considered low and may indicate hypogonadism (from [facility] 2010 [id number]). Results >320 ng/dL are considered normal. [facility] [employer] [address] [place] [address] Cal Stone III, M.D. [id number] Performed By: #### 2 84915 #### [place] [address] VALPROIC ACIDon 07-11-2024 Valproic Acid 47.1 ug/mL Low 50.0-100.0 [facility] Comment on above: Result Comment: Refe rence ranges and high/low indicator flags are provided as general guidelines only. The treating physician must determine appropriate target levels/dosing based on the specific clinical situation. [facility] [employer] [facility] [place] [address] Cal Stone III, M.D. [id number] Performed By: #### 2 35420 #### [address] [address] CBC + DIFFon 07-10-2024 Baso # 0.01 x10EE3/UL Normal 0.00 - 0.10 [facility] Comment on above: Performed By: #### 2 20290 #### [address] [address] Basophils/100 WBC (Bld) 0.2 % Normal 0.0 - 2.0 [facility] Comment on above: Performed By: #### 2 66336 #### [address] [address] CBC + DIFF Normal [facility] Comment on above: Result Comment: CBC- COMPLETE BLOOD COUNT Performed By: #### 2 56614 #### [address] [address] EO # 0.20 x10EE3/UL Normal 0.00 - 0.50 [facility] Comment on above: Performed By: #### 2 04677 #### [facility],[address] [place], [place] [address] Eosinophils/100 WBC (Bld) 2.4 % Normal 0.0 - 7.0 [facility] Comment on above: Performed By: #### 2 41272 #### [facility],[address] [place] [address] Erythrocyte distribution width (RBC) [Ratio] 13.9 % Normal 12.0 - 15.6 [facility] Comment on above: Performed By: #### 2 96274 #### [facility],[address] [place] [address] Hematocrit (Bld) [Volume fraction] 47.1 % Normal 40.0 - 52.0 [facility] Comment on above: Performed By: #### 2 87928 #### [facility],[address] [place] [address] Hemoglobin (Bld) [Mass/Vol] 15.7 g/dL Normal 13.0 - 17.5 [facility] Comment on above: Performed By: #### 2 49952 #### [facility],[address] [place], [place] [address] Lymph # 4.60 x10EE3/UL High 0.80 - 2.80 [facility] Comment on above: Performed By: #### 2 87998 #### [facility],[address] [place], [place] [address] Lymphocytes/100 WBC (Bld) 55.1 % High 20.0 - 45.0 [facility] Comment on above: Performed By: #### 2 81595 #### [facility],[address] [place], [place] [phone] MANUAL DIFF N/A Normal [facility] Comment on above: Performed By: #### 2 18271 #### [facility],[address] [place], [place] [address] MCH (RBC) [Entitic mass] 30 pg Normal 27 - 33 [facility] Comment on above: Performed By: #### 2 57931 #### [place] [address] MCHC 33 X10 3 Normal 32 - 36 [facility] Comment on above: Performed By: #### 2 63920 #### [facility],[address] [place] [address] MCV (RBC) [Entitic vol] 88 fL Normal 81 - 98 [facility] Comment on above: Performed By: #### 2 10243 #### [place] [address] Crook # 0.66 x10EE3/UL Normal 0.20 - 1.00 [facility] Comment on above: Performed By: #### 2 96858 #### [place] [address] MONOS % 7.9 % Normal 0.0 - 10.0 [facility] Comment on above: Performed By: #### 2 79529 #### [place] [address] Morphology Tu (Bld) [Interp] N/A Normal [facility] Comment on above: Performed By: #### 2 56439 #### [place] [address] Neut # 2.87 x10EE3/UL Normal 1.50 - 7.10 [facility] Comment on above: Performed By: #### 2 14728 #### [place] [address] Neutrophils/100 WBC (Bld) 34.4 % Low 46.0 - 76.0 [facility] Comment on above: Performed By: #### 2 81180 #### [place] [address] PLATELET 248 x10EE3/UL Normal 150 - 450 [facility] Comment on above: Performed By: #### 2 52531 #### [facility],[address] [place] [address] 82255 Platelet mean volume (Bld) [Entitic vol] 8.9 fL Normal 6.4 - 10.5 [facility] Comment on above: Result Comment: AUTO MATED DIFFERENTIAL Performed By: #### 2 62061 #### [facility],[address] [place] [address] 28683 RBC 5.34 x 10EE6/UL Normal 4.50 - 6.00 [facility] Comment on above: Performed By: #### 2 47362 #### [facility],[address] [place] [address] 41002 WBC 8.4 x 10EE3/UL Normal 4.5 - 10.8 [facility] Comment on above: Performed By: #### 2 17027 #### [facility],[address] [place] [address] 23616 CMP with eGFRon 07-10-2024 AGE 58 years Normal [facility] Comment on above: Performed By: #### 2 44152 #### [facility],[address] [place] [address] 29810 Albumin [Mass/Vol] 3.8 g/dL Normal 3.4 - 5.0 [facility] Comment on above: Performed By: #### 2 13097 #### [facility] [facility],[address] [place] [address] 43926 Albumin/Globulin [Mass ratio] 0.9 {ratio} Normal 0.9 - 1.6 [facility] Comment on above: Performed By: #### 2 64739 #### [facility],[address] [place] [address] 31925 ALK PHOS 62 U/L Normal 46 - 116 [facility] Comment on above: Performed By: #### 2 61980 #### [facility],[address] [place] [address] 72533 ALT [Catalytic activity/Vol] 27 U/L Normal 16 - 63 [facility] Comment on above: Performed By: #### 2 47682 #### [facility],[address] [place] [address] 46821 Anion gap [Moles/Vol] 13 mmol/L Normal 10 - 20 [facility] Comment on above: Performed By: #### 2 88843 #### [facility],[address] [place] [address] 44573 AST [Catalytic activity/Vol] 17 U/L Normal 15 - 37 [facility] Comment on above: Performed By: #### 2 25599 #### [facility],[address] [place] [address] 85016 B/C RATIO 11 ratio Normal 0 - 30 [facility] Comment on above: Performed By: #### 2 23366 #### [facility],[address] [place] [address] 57501 Bilirubin [Mass/Vol] 0.4 mg/dL Normal 0.2 - 1.0 [facility] Comment on above: Performed By: #### 2 82339 #### [facility],[address] [place] [address] 65279 Calcium [Mass/Vol] 9.5 mg/dL Normal 8.5 - 10.1 [facility] Comment on above: Performed By: #### 2 88086 #### [facility],[address] [place] [address] 98069 Chloride [Moles/Vol] 103 mmol/L Normal 98 - 107 [facility] Comment on above: Performed By: #### 2 42184 #### [facility],[address] [place] [address] 63971 CMP with eGFR Normal [facility] Comment on above: Result Comment: COMP REHENSIVE METABOLIC PANEL Performed By: #### 2 45562 #### [facility],[address] [place] [address] 44558 CO2 [Moles/Vol] 32.2 mmol/L High 21.0 - 32.0 [facility] Comment on above: Performed By: #### 2 92717 #### [facility],[address] [place] [address] 61599 Creatinine [Mass/Vol] 0.93 mg/dL Normal 0.70 - 1.30 [facility] Comment on above: Performed By: #### 2 04357 #### [facility],[address] [place], [place] [address] GFR/1.73 sq M.predicted among non-blacks MDRD (S/P/Bld) [Vol rate/Area] mL/min/{1.73_m2} Normal 60 - 999 [facility] Comment on above: Performed By: #### 2 79246 #### [facility],[address] [place] [address] Result Comment: ACCO RDING TO THE NATIONAL KIDNEY DISEASE EDUCATION PROGRAM(NKDE), A NORMAL eGFR IS A VALUE GREATER THAN OR EQUAL TO 60 ML/MIN/1.73 SQ METERS. CHRONIC KIDNEY DISEASE: <60mL/MIN/1.73 SQ METERS KIDNEY FAILURE: <15mL/MIN/1.73 SQ METERS THIS TEST SHOULD ONLY BE USED FOR PATIENTS 18 YEARS OF AGE AND OLDER. Globulin (S) [Mass/Vol] 4.4 g/dL High 1.5 - 3.8 [facility] Comment on above: Performed By: #### 2 69812 #### [facility],[address] [place] [address] 70612 Glucose [Mass/Vol] 79 mg/dL Normal 74 - 106 [facility] Comment on above: Performed By: #### 2 07303 #### [facility],[address] [place] [address] 56783 Potassium [Moles/Vol] 4.1 mmol/L Normal 3.5 - 5.1 [facility] Comment on above: Performed By: #### 2 34083 #### [facility],[address] [place] [address] 78323 Protein [Mass/Vol] 8.2 g/dL Normal 6.4 - 8.2 [facility] Comment on above: Performed By: #### 2 09542 #### [facility],[address] [place] [address] 85951 Sodium [Moles/Vol] 144 mmol/L Normal 136 - 145 [facility] Comment on above: Performed By: #### 2 74321 #### [facility],[address] [place] [address] 94922 Urea nitrogen [Mass/Vol] 10 mg/dL Normal 7 - 18 [facility] Comment on above: Performed By: #### 2 32998 #### [facility],[address] [place] [address] 37444 HEMOGLOBIN A1C (POM)on 07-10 Glucose [Mass/Vol] 151.3 mg/dL High 0.0 - 0.0 [facility] Comment on above: Result Comment: BLDo HEMOGLOBIN A1C REFERENCE RANGESBLDo Suggested Diagnosis HbA1c(%) HbA1C (mmol/mol Diabetic >/=6.5 >/=48 Prediabetes 5.7 - 6.4 39 - 47 Normal <5.7 <39 Performed By: #### 2 84026 #### [facility],[address] [place] [address] 13248 HbA1c (Bld) [Mass fraction] 6.9 % High 0.0 - 6.5 [facility] Comment on above: Performed By: #### 2 62498 #### [facility],[address] [place] [address] 46894 Testost SerPl-mCncon 025 Testosterone [Mass/Vol] 195 ng/dL Normal 193-824 [facility] Comment on above: Order Comment: Speci men Type: BLOOD SPECIMEN Ordering Facility: [facility] Address: [address] [place], [place] [id number] Result Comment: A te stosterone level in the 193-320 ng/dL range with associated clinical symptoms is considered low and may indicate hypogonadism (from [facility] 2010 [id number]). Results >320 ng/dL are considered normal. Performed By: #### 2 986-8, 4086-5 #### [facility] CLIA [id number] [address] [place] [address] [place] Valproate SerPl-mCncon 07-10 Valproate [Mass/Vol] 47.1 ug/mL Low 50.0-100.[address] [facility] Comment on above: Order Comment: Speci men Type: BLOOD SPECIMEN Ordering Facility: [facility] Address: [address] [place] [address] Result Comment: Refe rence ranges and high/low indicator flags are provided as general guidelines only. The treating physician must determine appropriate target levels/dosing based on the specific clinical situation. Performed By: #### 2 986-8, 6-5 #### [facility] CLIA [id number] [address] [place] [address] [place] CBC + DIFFon 06-19-2024 Baso # 0.02 x10EE3/UL Normal 0.00 - 0.10 [facility] Comment on above: Performed By: #### 2 06916 #### [facility],[address] [place] [address] 62305 Basophils/100 WBC (Bld) 0.2 % Normal 0.0 - 2.0 [facility] Comment on above: Performed By: #### 2 29841 #### [facility],[address] [place] [address] 51153 CBC + DIFF Normal [facility] Comment on above: Result Comment: CBC- COMPLETE BLOOD COUNT Performed By: #### 2 95905 #### [facility],[address] [place] [address] 46348 EO # 0.23 x10EE3/UL Normal 0.00 - 0.50 [facility] Comment on above: Performed By: #### 2 53258 #### [facility],[address] [place] [address] 97427 Eosinophils/100 WBC (Bld) 3.2 % Normal 0.0 - 7.0 [facility] Comment on above: Performed By: #### 2 36186 #### [facility],[address] [place] [address] 13515 Erythrocyte distribution width (RBC) [Ratio] 13.8 % Normal 12.0 - 15.6 [facility] Comment on above: Performed By: #### 2 28941 #### [facility],[address] [place] [address] 38988 Hematocrit (Bld) [Volume fraction] 44.2 % Normal 40.0 - 52.0 [facility] Comment on above: Performed By: #### 2 46447 #### [place] [address] Hemoglobin (Bld) [Mass/Vol] 14.9 g/dL Normal 13.0 - 17.5 [facility] Comment on above: Performed By: #### 2 54035 #### [facility],[address] [place] [address] 82819 Lymph # 3.98 x10EE3/UL High 0.80 - 2.80 [facility] Comment on above: Performed By: #### 2 95684 #### [facility],[address] [place] [address] 69077 Lymphocytes/100 WBC (Bld) 55.6 % High 20.0 - 45.0 [facility] Comment on above: Performed By: #### 2 66399 #### [address] [address] MANUAL DIFF N/A Normal [facility] Comment on above: Performed By: #### 2 81978 #### [address] [address] MCH (RBC) [Entitic mass] 29 pg Normal 27 - 33 [facility] Comment on above: Performed By: #### 2 20895 #### [facility],[address] [place] [address] 10052 MCHC 34 X10 3 Normal 32 - 36 [facility] Comment on above: Performed By: #### 2 26592 #### [facility],[address] [place] [address] 44711 MCV (RBC) [Entitic vol] 87 fL Normal 81 - 98 [facility] Comment on above: Performed By: #### 2 06190 #### [facility],[address] [place] [address] 18884 Crook # 0.81 x10EE3/UL Normal 0.20 - 1.00 [facility] Comment on above: Performed By: #### 2 79085 #### [facility],[address] [place] [address] 12733 MONOS % 11.2 % High 0.0 - 10.0 [facility] Comment on above: Performed By: #### 2 13086 #### [facility],[address] [place] [address] 44820 Morphology Tu (Bld) [Interp] N/A Normal [facility] Comment on above: Performed By: #### 2 40027 #### [facility],[address] [place] [address] 74171 Neut # 2.14 x10EE3/UL Normal 1.50 - 7.10 [facility] Comment on above: Performed By: #### 2 03128 #### [facility],[address] [place] [address] 22067 Neutrophils/100 WBC (Bld) 29.8 % Low 46.0 - 76.0 [facility] Comment on above: Performed By: #### 2 72143 #### [facility],[address] [place] [address] 73300 PLATELET 339 x10EE3/UL Normal 150 - 450 [facility] Comment on above: Performed By: #### 2 04291 #### [facility],[address] [place] [address] Platelet mean volume (Bld) [Entitic vol] 7.7 fL Normal 6.4 - 10.5 [facility] Comment on above: Result Comment: AUTO MATED DIFFERENTIAL Performed By: #### 2 92212 #### [facility],[address] [place] [address] RBC 5.11 x 10EE6/UL Normal 4.50 - 6.00 [facility] Comment on above: Performed By: #### 2 13810 #### [facility],[address] [place] [address] WBC 7.2 x 10EE3/UL Normal 4.5 - 10.8 [facility] Comment on above: Performed By: #### 2 88995 #### [place] [address] CBC + DIFFon 05-23-2024 Baso # 0.02 x10EE3/UL Normal 0.00 - 0.10 [facility] Comment on above: Performed By: #### 2 60626 #### [facility],[address] [place] [address] Basophils/100 WBC (Bld) 0.2 % Normal 0.0 - 2.0 [facility] Comment on above: Performed By: #### 2 80961 #### [facility],[address] [place] [address] CBC + DIFF Normal [facility] Comment on above: Result Comment: CBC- COMPLETE BLOOD COUNT Performed By: #### 2 29394 #### [place] [address] EO # 0.12 x10EE3/UL Normal 0.00 - 0.50 [facility] Comment on above: Performed By: #### 2 80955 #### [place] [address] Eosinophils/100 WBC (Bld) 1.1 % Normal 0.0 - 7.0 [facility] Comment on above: Performed By: #### 2 51349 #### [facility],[address] [place] [address] Erythrocyte distribution width (RBC) [Ratio] 14.1 % Normal 12.0 - 15.6 [facility] Comment on above: Performed By: #### 2 64464 #### [facility],[address] [place] [address] Hematocrit (Bld) [Volume fraction] 46.7 % Normal 40.0 - 52.0 [facility] Comment on above: Performed By: #### 2 83817 #### [facility],[address] [place] [address] Hemoglobin (Bld) [Mass/Vol] 15.6 g/dL Normal 13.0 - 17.5 [facility] Comment on above: Performed By: #### 2 95993 #### [facility],[address] [place] [address] Lymph # 3.28 x10EE3/UL High 0.80 - 2.80 [facility] Comment on above: Performed By: #### 2 57811 #### [place] [address] Lymphocytes/100 WBC (Bld) 31.5 % Normal 20.0 - 45.0 [facility] Comment on above: Performed By: #### 2 36030 #### [facility],[address] [place] [address] MANUAL DIFF N/A Normal [facility] Comment on above: Performed By: #### 2 28225 #### [facility],[address] [place], [place] [address] MCH (RBC) [Entitic mass] 29 pg Normal 27 - 33 [facility] Comment on above: Performed By: #### 2 61342 #### [facility],[address] [place] [address] MCHC 33 X10 3 Normal 32 - 36 [facility] Comment on above: Performed By: #### 2 02036 #### [facility],[address] [place] [address] MCV (RBC) [Entitic vol] 87 fL Normal 81 - 98 [facility] Comment on above: Performed By: #### 2 10212 #### [facility],[address] [place] [address] Crook # 0.73 x10EE3/UL Normal 0.20 - 1.00 [facility] Comment on above: Performed By: #### 2 81539 #### [facility],[address] [place] [address] MONOS % 7.0 % Normal 0.0 - 10.0 [facility] Comment on above: Performed By: #### 2 45211 #### [facility],[address] [place] [address] Morphology Tu (Bld) [Interp] N/A Normal [facility] Comment on above: Performed By: #### 2 99238 #### [facility],[address] [place] [address] Neut # 6.27 x10EE3/UL Normal 1.50 - 7.10 [facility] Comment on above: Performed By: #### 2 26961 #### [facility],[address] [place] [address] Neutrophils/100 WBC (Bld) 60.2 % Normal 46.0 - 76.0 [facility] Comment on above: Performed By: #### 2 65576 #### [facility],[address] [place] [address] PLATELET 266 x10EE3/UL Normal 150 - 450 [facility] Comment on above: Performed By: #### 2 93603 #### [facility],[address] [place] [address] 96829 Platelet mean volume (Bld) [Entitic vol] 8.7 fL Normal 6.4 - 10.5 [facility] Comment on above: Result Comment: AUTO MATED DIFFERENTIAL Performed By: #### 2 07095 #### [address] [address] RBC 5.36 x 10EE6/UL Normal 4.50 - 6.00 [facility] Comment on above: Performed By: #### 2 26735 #### [address] [address] WBC 10.4 x 10EE3/UL Normal 4.5 - 10.8 [facility] Comment on above: Performed By: #### 2 24933 #### [address] [address] VALPROIC ACIDon 04-25-2024 Valproic Acid 36.1 ug/mL Low 50.0-100.0 [facility] Comment on above: Result Comment: Refe rence ranges and high/low indicator flags are provided as general guidelines only. The treating physician must determine appropriate target levels/dosing based on the specific clinical situation. [facility] [address] [place] [address] Cal Stone III, M.D. [id number] Performed By: #### 2 98292 #### [address] [address] CBC + DIFFon 04-24-2024 Baso # 0.01 x10EE3/UL Normal 0.00 - 0.10 [facility] Comment on above: Performed By: #### 2 23024 #### [address] [address] Basophils/100 WBC (Bld) 0.2 % Normal 0.0 - 2.0 [facility] Comment on above: Performed By: #### 2 80958 #### [address] [place] [address] CBC + DIFF Normal [facility] Comment on above: Result Comment: CBC- COMPLETE BLOOD COUNT Performed By: #### 2 74236 #### [facility],[address] [place], [place] [address] EO # 0.13 x10EE3/UL Normal 0.00 - 0.50 [facility] Comment on above: Performed By: #### 2 60552 #### [facility],[address] [place] [address] Eosinophils/100 WBC (Bld) 1.4 % Normal 0.0 - 7.0 [facility] Comment on above: Performed By: #### 2 96871 #### [facility],[address] [place] [address] Erythrocyte distribution width (RBC) [Ratio] 13.6 % Normal 12.0 - 15.6 [facility] Comment on above: Performed By: #### 2 95686 #### [facility],[address] [place] [address] Hematocrit (Bld) [Volume fraction] 49.0 % Normal 40.0 - 52.0 [facility] Comment on above: Performed By: #### 2 47102 #### [facility],[address] [place] [address] Hemoglobin (Bld) [Mass/Vol] 16.0 g/dL Normal 13.0 - 17.5 [facility] Comment on above: Performed By: #### 2 02034 #### [facility],[address] [place] [address] 12772 Lymph # 5.04 x10EE3/UL High 0.80 - 2.80 [facility] Comment on above: Performed By: #### 2 10579 #### [facility],[address] [place], [place] [address] Lymphocytes/100 WBC (Bld) 54.2 % High 20.0 - 45.0 [facility] Comment on above: Performed By: #### 2 52839 #### [facility],[address] [place] [address] MANUAL DIFF N/A Normal [facility] Comment on above: Performed By: #### 2 69994 #### [facility],[address] [place] [address] MCH (RBC) [Entitic mass] 29 pg Normal 27 - 33 [facility] Comment on above: Performed By: #### 2 38527 #### [facility],[address] [place] [address] MCHC 33 X10 3 Normal 32 - 36 [facility] Comment on above: Performed By: #### 2 92681 #### [facility],[address] [place] [address] MCV (RBC) [Entitic vol] 88 fL Normal 81 - 98 [facility] Comment on above: Performed By: #### 2 46997 #### [facility],[address] [place] [address] Crook # 0.73 x10EE3/UL Normal 0.20 - 1.00 [facility] Comment on above: Performed By: #### 2 83150 #### [facility],[address] [place] [address] MONOS % 7.8 % Normal 0.0 - 10.0 [facility] Comment on above: Performed By: #### 2 06486 #### [facility],[address] [place] [address] Morphology Tu (Bld) [Interp] N/A Normal [facility] Comment on above: Performed By: #### 2 06713 #### [facility],[address] [place] [address] Neut # 3.38 x10EE3/UL Normal 1.50 - 7.10 [facility] Comment on above: Performed By: #### 2 37559 #### [facility],[address] [place] [address] 94302 Neutrophils/100 WBC (Bld) 36.4 % Low 46.0 - 76.0 [facility] Comment on above: Performed By: #### 2 00680 #### [facility],[address] [place] [address] 38712 PLATELET 235 x10EE3/UL Normal 150 - 450 [facility] Comment on above: Performed By: #### 2 92774 #### [facility],[address] [place] [address] 97175 Platelet mean volume (Bld) [Entitic vol] 8.3 fL Normal 6.4 - 10.5 [facility] Comment on above: Result Comment: AUTO MATED DIFFERENTIAL Performed By: #### 2 61501 #### [facility],[address] [place] [address] 63697 RBC 5.58 x 10EE6/UL Normal 4.50 - 6.00 [facility] Comment on above: Performed By: #### 2 29082 #### [facility],[address] [place] [address] 77012 WBC 9.3 x 10EE3/UL Normal 4.5 - 10.8 [facility] Comment on above: Performed By: #### 2 96859 #### [facility],[address] [place] [address] 39048 CMP with eGFRon 04-24-2024 AGE 58 years Normal [facility] Comment on above: Performed By: #### 2 39941 #### [facility],[address] [place] [address] 46465 Albumin [Mass/Vol] 3.9 g/dL Normal 3.4 - 5.0 [facility] Comment on above: Performed By: #### 2 11246 #### [facility],[address] [place] [address] 22761 Albumin/Globulin [Mass ratio] 0.9 {ratio} Normal 0.9 - 1.6 [facility] Comment on above: Performed By: #### 2 90507 #### [facility],[address] [place] [address] 51634 ALK PHOS 64 U/L Normal 46 - 116 [facility] Comment on above: Performed By: #### 2 79455 #### [facility],[address] [place] [address] 19103 ALT [Catalytic activity/Vol] 27 U/L Normal 16 - 63 [facility] Comment on above: Performed By: #### 2 87603 #### [facility],[address] [place] [address] 74666 Anion gap [Moles/Vol] 11 mmol/L Normal 10 - 20 [facility] Comment on above: Performed By: #### 2 46801 #### [facility],[address] [place] [address] 20436 AST [Catalytic activity/Vol] 18 U/L Normal 15 - 37 [facility] Comment on above: Performed By: #### 2 62295 #### [facility],[address] [place] [address] 80496 B/C RATIO 5 ratio Normal 0 - 30 [facility] Comment on above: Performed By: #### 2 87338 #### [facility],[address] [place] [address] 73616 Bilirubin [Mass/Vol] 0.4 mg/dL Normal 0.2 - 1.0 [facility] Comment on above: Performed By: #### 2 39358 #### [facility],[address] [place] [address] 10463 Calcium [Mass/Vol] 9.6 mg/dL Normal 8.5 - 10.1 [facility] Comment on above: Performed By: #### 2 26874 #### [facility],[address] [place] [address] 55511 Chloride [Moles/Vol] 103 mmol/L Normal 98 - 107 [facility] Comment on above: Performed By: #### 2 24285 #### [facility],[address] [place] [address] 28119 CMP with eGFR Normal [facility] Comment on above: Result Comment: COMP REHENSIVE METABOLIC PANEL Performed By: #### 2 98589 #### [facility],[address] [place] [address] 40773 CO2 [Moles/Vol] 29.8 mmol/L Normal 21.0 - 32.0 [facility] Comment on above: Performed By: #### 2 22693 #### [facility],[address] [place] [address] 06760 Creatinine [Mass/Vol] 0.81 mg/dL Normal 0.70 - 1.30 [facility] Comment on above: Performed By: #### 2 16441 #### [facility],[address] [place] [address] 22931 GFR/1.73 sq M.predicted among non-blacks MDRD (S/P/Bld) [Vol rate/Area] mL/min/{1.73_m2} Normal 60 - 999 [facility] Comment on above: Performed By: #### 2 22650 #### [facility],[address] [place] [address] 41669 Result Comment: ACCO RDING TO THE NATIONAL KIDNEY DISEASE EDUCATION PROGRAM(NKDE), A NORMAL eGFR IS A VALUE GREATER THAN OR EQUAL TO 60 ML/MIN/1.73 SQ METERS. CHRONIC KIDNEY DISEASE: <60mL/MIN/1.73 SQ METERS KIDNEY FAILURE: <15mL/MIN/1.73 SQ METERS THIS TEST SHOULD ONLY BE USED FOR PATIENTS 18 YEARS OF AGE AND OLDER. Globulin (S) [Mass/Vol] 4.2 g/dL High 1.5 - 3.8 [facility] Comment on above: Performed By: #### 2 71348 #### [facility],[address] [place] [address] 81754 Glucose [Mass/Vol] 132 mg/dL High 74 - 106 [facility] Comment on above: Performed By: #### 2 75104 #### [facility],[address] [place] [address] 75167 Potassium [Moles/Vol] 4.0 mmol/L Normal 3.5 - 5.1 [facility] Comment on above: Performed By: #### 2 51738 #### [facility],[address] [place] [address] 62461 Protein [Mass/Vol] 8.1 g/dL Normal 6.4 - 8.2 [facility] Comment on above: Performed By: #### 2 91311 #### [facility],[address] [place] [address] 50785 Sodium [Moles/Vol] 140 mmol/L Normal 136 - 145 [facility] Comment on above: Performed By: #### 2 28574 #### [facility],[address] [place] [address] 80222 Urea nitrogen [Mass/Vol] 4 mg/dL Low 7 - 18 [facility] Comment on above: Performed By: #### 2 27537 #### [facility],[address] [place] [address] HEMOGLOBIN A1C (POM)on 04-24 Glucose [Mass/Vol] 185.8 mg/dL High 0.0 - 0.0 [facility] Comment on above: Result Comment: BLDo HEMOGLOBIN A1C REFERENCE RANGESBLDo Suggested Diagnosis HbA1c(%) HbA1C (mmol/mol Diabetic >/=6.5 >/=48 Prediabetes 5.7 - 6.4 39 - 47 Normal <5.7 <39 Performed By: #### 2 54753 #### [facility],[address] [place] [address] 48189 HbA1c (Bld) [Mass fraction] 8.1 % High 0.0 - 6.5 [facility] Comment on above: Performed By: #### 2 83143 #### [facility],[address] [place], [place] [address] Valproate SerPl-mCncon 04-24 Valproate [Mass/Vol] 36.1 ug/mL Low 50.0-100.[address] [facility] Comment on above: Order Comment: Speci men Type: BLOOD SPECIMEN Ordering Facility: [facility] Address: [address] [place] [address] Result Comment: Refe rence ranges and high/low indicator flags are provided as general guidelines only. The treating physician must determine appropriate target levels/dosing based on the specific clinical situation. Performed By: #### 4 086-5 #### [facility] CLIA [id number] [address] [place] [address] STATES OF [facility] CBC + DIFFon 03-27-2024 Baso # 0.01 x10EE3/UL Normal 0.00 - 0.10 [facility] Comment on above: Performed By: #### 2 76415 #### [facility],[address] [place] [address] Basophils/100 WBC (Bld) 0.1 % Normal 0.0 - 2.0 [facility] Comment on above: Performed By: #### 2 19898 #### [facility],[address] [place] [address] CBC + DIFF Normal [facility] Comment on above: Result Comment: CBC- COMPLETE BLOOD COUNT Performed By: #### 2 10962 #### [facility],[address] [place] [address] EO # 0.18 x10EE3/UL Normal 0.00 - 0.50 [facility] Comment on above: Performed By: #### 2 73459 #### [facility],[address] [place] [address] 43925 Eosinophils/100 WBC (Bld) 2.1 % Normal 0.0 - 7.0 [facility] Comment on above: Performed By: #### 2 76210 #### [facility],[address] [place] [address] Erythrocyte distribution width (RBC) [Ratio] 13.1 % Normal 12.0 - 15.6 [facility] Comment on above: Performed By: #### 2 38964 #### [place] [address] Hematocrit (Bld) [Volume fraction] 47.6 % Normal 40.0 - 52.0 [facility] Comment on above: Performed By: #### 2 88195 #### [facility],[address] [place] [address] Hemoglobin (Bld) [Mass/Vol] 15.7 g/dL Normal 13.0 - 17.5 [facility] Comment on above: Performed By: #### 2 67141 #### [facility],[address] [place] [address] Lymph # 4.64 x10EE3/UL High 0.80 - 2.80 [facility] Comment on above: Performed By: #### 2 46417 #### [facility],[address] [place] [address] Lymphocytes/100 WBC (Bld) 52.2 % High 20.0 - 45.0 [facility] Comment on above: Performed By: #### 2 09605 #### [facility],[address] [place] [address] MANUAL DIFF N/A Normal [facility] Comment on above: Performed By: #### 2 20522 #### [facility],[address] [place] [address] MCH (RBC) [Entitic mass] 29 pg Normal 27 - 33 [facility] Comment on above: Performed By: #### 2 62070 #### [place] [address] MCHC 33 X10 3 Normal 32 - 36 [facility] Comment on above: Performed By: #### 2 17470 #### [place] [address] MCV (RBC) [Entitic vol] 87 fL Normal 81 - 98 [facility] Comment on above: Performed By: #### 2 38368 #### [facility],[address] [place] [address] Crook # 0.70 x10EE3/UL Normal 0.20 - 1.00 [facility] Comment on above: Performed By: #### 2 84187 #### [place] [address] MONOS % 7.9 % Normal 0.0 - 10.0 [facility] Comment on above: Performed By: #### 2 62636 #### [place] [address] Morphology Tu (Bld) [Interp] N/A Normal [facility] Comment on above: Performed By: #### 2 38556 #### [place] [address] Neut # 3.35 x10EE3/UL Normal 1.50 - 7.10 [facility] Comment on above: Performed By: #### 2 96638 #### [place] [address] Neutrophils/100 WBC (Bld) 37.7 % Low 46.0 - 76.0 [facility] Comment on above: Performed By: #### 2 34001 #### [place] [address] PLATELET 246 x10EE3/UL Normal 150 - 450 [facility] Comment on above: Performed By: #### 2 66656 #### [place] [address] Platelet mean volume (Bld) [Entitic vol] 8.3 fL Normal 6.4 - 10.5 [facility] Comment on above: Result Comment: AUTO MATED DIFFERENTIAL Performed By: #### 2 13094 #### [address] [address] RBC 5.45 x 10EE6/UL Normal 4.50 - 6.00 [facility] Comment on above: Performed By: #### 2 35395 #### [facility],[address] [place] [address] 58408 WBC 8.9 x 10EE3/UL Normal 4.5 - 10.8 [facility] Comment on above: Performed By: #### 2 51849 #### [facility],[address] [place] [address] CBC + DIFFon 02-28-2024 Baso # 0.02 x10EE3/UL Normal 0.00 - 0.10 [facility] Comment on above: Performed By: #### 2 88512 #### [facility],[address] [place] [address] 31138 Basophils/100 WBC (Bld) 0.3 % Normal 0.0 - 2.0 [facility] Comment on above: Performed By: #### 2 78357 #### [facility],[address] [place] [address] CBC + DIFF Normal [facility] Comment on above: Result Comment: CBC- COMPLETE BLOOD COUNT Performed By: #### 2 61560 #### [facility],[address] [place] [address] 72461 EO # 0.15 x10EE3/UL Normal 0.00 - 0.50 [facility] Comment on above: Performed By: #### 2 65868 #### [facility],[address] [place] [address] 17284 Eosinophils/100 WBC (Bld) 1.7 % Normal 0.0 - 7.0 [facility] Comment on above: Performed By: #### 2 13496 #### [facility],[address] [place], [place] [address] Erythrocyte distribution width (RBC) [Ratio] 13.5 % Normal 12.0 - 15.6 [facility] Comment on above: Performed By: #### 2 80071 #### [facility],[address] [place], [place] [address] Hematocrit (Bld) [Volume fraction] 48.7 % Normal 40.0 - 52.0 [facility] Comment on above: Performed By: #### 2 43637 #### [facility],[address] [place] [address] Hemoglobin (Bld) [Mass/Vol] 16.1 g/dL Normal 13.0 - 17.5 [facility] Comment on above: Performed By: #### 2 10309 #### [facility],[address] [place] [address] Lymph # 4.95 x10EE3/UL High 0.80 - 2.80 [facility] Comment on above: Performed By: #### 2 81878 #### [facility],[address] [place] [address] Lymphocytes/100 WBC (Bld) 57.3 % High 20.0 - 45.0 [facility] Comment on above: Performed By: #### 2 72737 #### [facility],[address] [place], [place] [address] MANUAL DIFF N/A Normal [facility] Comment on above: Performed By: #### 2 45574 #### [facility],[address] [place] [address] MCH (RBC) [Entitic mass] 29 pg Normal 27 - 33 [facility] Comment on above: Performed By: #### 2 66101 #### [facility],[address] [place], [place] [address] MCHC 33 X10 3 Normal 32 - 36 [facility] Comment on above: Performed By: #### 2 39076 #### [facility],[address] [place], [place] [address] MCV (RBC) [Entitic vol] 88 fL Normal 81 - 98 [facility] Comment on above: Performed By: #### 2 77522 #### [facility],[address] [place] [address] 67665 Crook # 0.60 x10EE3/UL Normal 0.20 - 1.00 [facility] Comment on above: Performed By: #### 2 11887 #### [facility],[address] [place] [address] 40772 MONOS % 6.9 % Normal 0.0 - 10.0 [facility] Comment on above: Performed By: #### 2 98758 #### [facility],[address] [place] [address] 15123 Morphology Tu (Bld) [Interp] N/A Normal [facility] Comment on above: Performed By: #### 2 60110 #### [facility],[address] [place] [address] 38409 Neut # 2.92 x10EE3/UL Normal 1.50 - 7.10 [facility] Comment on above: Performed By: #### 2 96229 #### [facility],[address] [place] [address] 55777 Neutrophils/100 WBC (Bld) 33.8 % Low 46.0 - 76.0 [facility] Comment on above: Performed By: #### 2 96861 #### [facility],[address] [place] [address] 85967 PLATELET 262 x10EE3/UL Normal 150 - 450 [facility] Comment on above: Performed By: #### 2 01335 #### [facility],[address] [place] [address] 06674 Platelet mean volume (Bld) [Entitic vol] 8.4 fL Normal 6.4 - 10.5 [facility] Comment on above: Result Comment: AUTO MATED DIFFERENTIAL Performed By: #### 2 27213 #### [facility],[address] [place] [address] 11370 RBC 5.56 x 10EE6/UL Normal 4.50 - 6.00 [facility] Comment on above: Performed By: #### 2 74876 #### [facility],[address] [place] [address] 62694 WBC 8.6 x 10EE3/UL Normal 4.5 - 10.8 [facility] Comment on above: Performed By: #### 2 50741 #### [facility],[address] [place], [place] [address] CBC + DIFFon 01-31-2024 Baso # 0.02 x10EE3/UL Normal 0.00 - 0.10 [facility] Comment on above: Performed By: #### 2 11089 #### [facility],[address] [place], [place] [address] Basophils/100 WBC (Bld) 0.3 % Normal 0.0 - 2.0 [facility] Comment on above: Performed By: #### 2 15654 #### [facility],[address] [place] [address] CBC + DIFF Normal [facility] Comment on above: Result Comment: CBC- COMPLETE BLOOD COUNT Performed By: #### 2 36474 #### [facility],[address] [place] [address] 78501 CELL COUNT 100 Normal [facility] Comment on above: Performed By: #### 2 28798 #### [facility],[address] [place] [address] 82378 EO 2.0 % Normal 0.0 - 7.0 [facility] Comment on above: Performed By: #### 2 59351 #### [facility],[address] [place] [address] 71572 EO # 0.20 x10EE3/UL Normal 0.00 - 0.50 [facility] Comment on above: Performed By: #### 2 68731 #### [facility],[address] [place] [address] 66540 Eosinophils/100 WBC (Bld) 2.3 % Normal 0.0 - 7.0 [facility] Comment on above: Performed By: #### 2 16908 #### [facility],[address] [place] [address] Erythrocyte distribution width (RBC) [Ratio] 13.5 % Normal 12.0 - 15.6 [facility] Comment on above: Performed By: #### 2 25374 #### [facility],[address] [place] [address] Hematocrit (Bld) [Volume fraction] 48.3 % Normal 40.0 - 52.0 [facility] Comment on above: Performed By: #### 2 62869 #### [facility],[address] [place] [address] Hemoglobin (Bld) [Mass/Vol] 15.7 g/dL Normal 13.0 - 17.5 [facility] Comment on above: Performed By: #### 2 50878 #### [facility],[address] [place] [address] Lymph # 4.58 x10EE3/UL High 0.80 - 2.80 [facility] Comment on above: Performed By: #### 2 76310 #### [facility],[address] [place], [place] [address] Lymphocytes/100 WBC (Bld) 53.2 % High 20.0 - 45.0 [facility] Comment on above: Performed By: #### 2 37920 #### [facility],[address] [place], [place] [address] Lymphocytes/100 WBC (Bld) 61 % High 20 - 45 [facility] Comment on above: Performed By: #### 2 19182 #### [facility],[address] [place] [address] MANUAL DIFF SEE BELOW Normal [facility] Comment on above: Performed By: #### 2 41932 #### [facility],[address],[place] [address] MCH (RBC) [Entitic mass] 29 pg Normal 27 - 33 [facility] Comment on above: Performed By: #### 2 14886 #### [facility],[address] [place] [address] MCHC 33 X10 3 Normal 32 - 36 [facility] Comment on above: Performed By: #### 2 54088 #### [facility],[address] [place] [address] MCV (RBC) [Entitic vol] 88 fL Normal 81 - 98 [facility] Comment on above: Performed By: #### 2 38343 #### [facility],[address] [place] [address] Crook # 0.82 x10EE3/UL Normal 0.20 - 1.00 [facility] Comment on above: Performed By: #### 2 05286 #### [facility],[address] [place] [address] MONOS 5 % Normal 0 - 10 [facility] Comment on above: Performed By: #### 2 37789 #### [facility],[address] [place], [place] [address] MONOS % 9.5 % Normal 0.0 - 10.0 [facility] Comment on above: Performed By: #### 2 79577 #### [facility],[address] [place] [address] Morphology Tu (Bld) [Interp] N/A Normal [facility] Comment on above: Performed By: #### 2 26924 #### [facility],[address] [place], [place] [address] Neut # 2.98 x10EE3/UL Normal 1.50 - 7.10 [facility] Comment on above: Performed By: #### 2 52586 #### [facility],[address] [place] [address] Neutrophils/100 WBC (Bld) 34.6 % Low 46.0 - 76.0 [facility] Comment on above: Performed By: #### 2 83634 #### [facility],[address] [place] [address] 14436 PLATELET 243 x10EE3/UL Normal 150 - 450 [facility] Comment on above: Performed By: #### 2 45704 #### [facility],[address] [place] [address] 06353 Platelet mean volume (Bld) [Entitic vol] 8.3 fL Normal 6.4 - 10.5 [facility] Comment on above: Result Comment: AUTO MATED DIFFERENTIAL Performed By: #### 2 64462 #### [facility],[address] [place] [address] 94103 RBC 5.48 x 10EE6/UL Normal 4.50 - 6.00 [facility] Comment on above: Performed By: #### 2 81312 #### [facility],[address] [place], [place] [address] SEGS 32 % Low 46 - 76 [facility] Comment on above: Performed By: #### 2 32750 #### [facility],[address] [place] [address] 28342 WBC 8.6 x 10EE3/UL Normal 4.5 - 10.8 [facility] Comment on above: Performed By: #### 2 85739 #### [facility],[address] [place] [address] 62085 CMP with eGFRon 01-31-2024 AGE 58 years Normal [facility] Comment on above: Performed By: #### 2 31611 #### [facility],[address] [place] [address] 94454 Albumin [Mass/Vol] 4.0 g/dL Normal 3.4 - 5.0 [facility] Comment on above: Performed By: #### 2 47212 #### [facility],[address] [place] [address] 78230 Albumin/Globulin [Mass ratio] 1.1 {ratio} Normal 0.9 - 1.6 [facility] Comment on above: Performed By: #### 2 39386 #### [facility],[address] [place] [address] 56474 ALK PHOS 65 U/L Normal 46 - 116 [facility] Comment on above: Performed By: #### 2 67349 #### [facility],[address] [place] [address] 78154 ALT [Catalytic activity/Vol] 35 U/L Normal 16 - 63 [facility] Comment on above: Performed By: #### 2 32297 #### [facility],[address] [place] [address] 98570 Anion gap [Moles/Vol] 11 mmol/L Normal 10 - 20 [facility] Comment on above: Performed By: #### 2 73003 #### [facility],[address] [place] [address] 62043 AST [Catalytic activity/Vol] 21 U/L Normal 15 - 37 [facility] Comment on above: Performed By: #### 2 43700 #### [facility],[address] [place] [address] 62716 B/C RATIO 8 ratio Normal 0 - 30 [facility] Comment on above: Performed By: #### 2 45002 #### [facility],[address] [place] [address] 12421 Bilirubin [Mass/Vol] 0.5 mg/dL Normal 0.2 - 1.0 [facility] Comment on above: Performed By: #### 2 60772 #### [facility],[address] [place] [address] 05098 Calcium [Mass/Vol] 9.4 mg/dL Normal 8.5 - 10.1 [facility] Comment on above: Performed By: #### 2 42518 #### [facility],[address] [place] [address] [id number] Chloride [Moles/Vol] 104 mmol/L Normal 98 - 107 [facility] Comment on above: Performed By: #### 2 05967 #### [facility],[address] [place] [address] 96144 CMP with eGFR Normal [facility] Comment on above: Result Comment: COMP REHENSIVE METABOLIC PANEL Performed By: #### 2 15943 #### [facility],[address] [place], [place] [id number] CO2 [Moles/Vol] 29.9 mmol/L Normal 21.0 - 32.0 [facility] Comment on above: Performed By: #### 2 82113 #### [place] [address] Creatinine [Mass/Vol] 1.00 mg/dL Normal 0.70 - 1.30 [facility] Comment on above: Performed By: #### 2 29546 #### [place] [address] GFR/1.73 sq M.predicted among non-blacks MDRD (S/P/Bld) [Vol rate/Area] mL/min/{1.73_m2} Normal 60 - 999 [facility] Comment on above: Performed By: #### 2 61113 #### [place] [address] Result Comment: ACCO RDING TO THE NATIONAL KIDNEY DISEASE EDUCATION PROGRAM(NKDE), A NORMAL eGFR IS A VALUE GREATER THAN OR EQUAL TO 60 ML/MIN/1.73 SQ METERS. CHRONIC KIDNEY DISEASE: <60mL/MIN/1.73 SQ METERS KIDNEY FAILURE: <15mL/MIN/1.73 SQ METERS THIS TEST SHOULD ONLY BE USED FOR PATIENTS 18 YEARS OF AGE AND OLDER. Globulin (S) [Mass/Vol] 3.7 g/dL Normal 1.5 - 3.8 [facility] Comment on above: Performed By: #### 2 43265 #### [place] [id number] Glucose [Mass/Vol] 143 mg/dL High 74 - 106 [facility] Comment on above: Performed By: #### 2 74800 #### [facility],[address] [place] [address] 00159 Potassium [Moles/Vol] 4.3 mmol/L Normal 3.5 - 5.1 [facility] Comment on above: Performed By: #### 2 48493 #### [facility],[address] [place] [address] 79885 Protein [Mass/Vol] 7.7 g/dL Normal 6.4 - 8.2 [facility] Comment on above: Performed By: #### 2 75312 #### [address] [address] Sodium [Moles/Vol] 141 mmol/L Normal 136 - 145 [facility] Comment on above: Performed By: #### 2 70148 #### [facility],[address] [place], [place] [id number] Urea nitrogen [Mass/Vol] 8 mg/dL Normal 7 - 18 [facility] Comment on above: Performed By: #### 2 80608 #### [address] [address] HEMOGLOBIN A1C (POM)on 01-30 Glucose [Mass/Vol] 171.4 mg/dL High 0.0 - 0.0 [facility] Comment on above: Result Comment: BLDo HEMOGLOBIN A1C REFERENCE RANGESBLDo Suggested Diagnosis HbA1c(%) HbA1C (mmol/mol Diabetic >/=6.5 >/=48 Prediabetes 5.7 - 6.4 39 - 47 Normal <5.7 <39 Performed By: #### 2 98488 #### [facility],[address] [place] [address] 30421 HbA1c (Bld) [Mass fraction] 7.6 % High 0.0 - 6.5 [facility] Comment on above: Performed By: #### 2 01851 #### [facility],[address] [place] [address] 11955 LIPID PROFILEon 01-31-2024 Cholesterol [Mass/Vol] 220 mg/dL Normal 0 - 240 [facility] Comment on above: Performed By: #### 2 76877 #### [facility],[address] [place] [address] 29030 Cholesterol in HDL [Mass/Vol] 31 mg/dL Low 40 - 60 [facility] Comment on above: Performed By: #### 2 01528 #### [facility],[address] [place] [address] 13269 Cholesterol in LDL [Mass/Vol] 111 mg/dL Normal 0 - 129 [facility] Comment on above: Performed By: #### 2 95482 #### [facility],[address] [place] [address]651 Cholesterol.total/Cho lesterol in HDL [Mass ratio] 7.1 {ratio} High 0.0 - 5.0 [facility] Comment on above: Performed By: #### 2 49065 #### [facility],[address] [place] [address] 11300 Lipid 1996 panel Normal [facility] Comment on above: Result Comment: LIPI D PROFILE Performed By: #### 2 87634 #### [facility],[address] [place] [address] 82132 Triglyceride [Mass/Vol] 392 mg/dL High 0 - 150 [facility] Comment on above: Performed By: #### 2 78413 #### [facility],[address] [place] [address] 87938 TSHon 01-31-2024 TSH Qn 1.97 m[IU]/L Normal 0.35 - 3.74 [facility] Comment on above: Performed By: #### 2 82710 #### [facility],[address] [place] [address] 78378 URINE MICROALBUMIN W/CREATIN INE, RANDOMon 01-31-2024 CREATININE UR 92.37 mg/dl Normal [facility] Comment on above: Performed By: #### 2 75271 #### [facility],[address] [place] [address] 72329 MICROALBUMIN UR 2.6 mg/dL Normal 0.1 - 25.1 [facility] Comment on above: Performed By: #### 2 00789 #### [facility],[address] [place] [address] 99757 UACR 28 mg/g Normal [facility] Comment on above: Performed By: #### 2 72929 #### [facility],[address] [place] [address] 27644 VALPROIC ACIDon 01-31-2024 Valproic Acid 38.2 ug/mL Low 50.0-100.0 [facility] Comment on above: Result Comment: Refe rence ranges and high/low indicator flags are provided as general guidelines only. The treating physician must determine appropriate target levels/dosing based on the specific clinical situation. [facility] [address] [place] [address] Cal Stone III, M.D. [id number] Performed By: #### 2 91476 #### [facility],[address] [place] [address] 94868 VITAMIN D, 25 HYDROXYon 01-07 VitD 26.80 ng/mL Low 30.00 - 100 [facility] Comment on above: Result Comment: 25-O HD3 indicates both endogenous production and supplementation. 25-OHD2 is an indicator of exogenous sources, such as diet or supplementation. Therapy is based on measurement of Total 25-OHD, with levels <20 ng/mL indicative of Vitamin D deficiency, while levels between 20 ng/mL and 30 ng/mL suggest insufficiency. Optimal levels are >=30ng/mL. Vitamin D, 25-OH D3 Not Established Vitamin D, 25-OH D2 Not Established Performed By: #### 2 18775 #### [facility],[address] [place] [address] 01523 Valproate SerPl-mCncon 01-30 Valproate [Mass/Vol] 38.2 ug/mL Low 50.0-100.0 [facility] Comment on above: Order Comment: Speci ellie Type: BLOOD SPECIMEN Ordering Facility: [facility] Address: [address] [place] [address] Result Comment: Refe rence ranges and high/low indicator flags are provided as general guidelines only. The treating physician must determine appropriate target levels/dosing based on the specific clinical situation. Performed By: #### 4 086-5 #### [facility] CLIA [id number] [address] [place] CBC + DIFFon 01-03-2024 Baso # 0.03 x10EE3/UL Normal 0.00 - 0.10 [facility] Comment on above: Performed By: #### 2 49467 #### [facility],[address] [place] [address] 87715 Basophils/100 WBC (Bld) 0.4 % Normal 0.0 - 2.0 [facility] Comment on above: Performed By: #### 2 66066 #### [facility],[address] [place] [address] 18838 CBC + DIFF Normal [facility] Comment on above: Result Comment: CBC- COMPLETE BLOOD COUNT Performed By: #### 2 18996 #### [facility],[address] [place] [address] 67641 EO # 0.24 x10EE3/UL Normal 0.00 - 0.50 [facility] Comment on above: Performed By: #### 2 82160 #### [facility],[address] [place] [address] 90997 Eosinophils/100 WBC (Bld) 2.5 % Normal 0.0 - 7.0 [facility] Comment on above: Performed By: #### 2 65529 #### [facility],[address] [place] [address] 20152 Erythrocyte distribution width (RBC) [Ratio] 13.6 % Normal 12.0 - 15.6 [facility] Comment on above: Performed By: #### 2 40559 #### [facility],[address] [place] [address] Hematocrit (Bld) [Volume fraction] 44.8 % Normal 40.0 - 52.0 [facility] Comment on above: Performed By: #### 2 04528 #### [facility],[address] [place] [address] Hemoglobin (Bld) [Mass/Vol] 14.5 g/dL Normal 13.0 - 17.5 [facility] Comment on above: Performed By: #### 2 85978 #### [facility],[address] [place] [address] Lymph # 3.85 x10EE3/UL High 0.80 - 2.80 [facility] Comment on above: Performed By: #### 2 43868 #### [facility],[address] [place] [address] Lymphocytes/100 WBC (Bld) 41.2 % Normal 20.0 - 45.0 [facility] Comment on above: Performed By: #### 2 84877 #### [facility],[address] [place] [address] MANUAL DIFF N/A Normal [facility] Comment on above: Performed By: #### 2 04709 #### [facility],[address] [place], [place] [id number] MCH (RBC) [Entitic mass] 28 pg Normal 27 - 33 [facility] Comment on above: Performed By: #### 2 95735 #### [facility],[address] [place], [place] [address] MCHC 32 X10 3 Normal 32 - 36 [facility] Comment on above: Performed By: #### 2 64817 #### [facility],[address] [place], [place] [id number] MCV (RBC) [Entitic vol] 88 fL Normal 81 - 98 [facility] Comment on above: Performed By: #### 2 08226 #### [facility],[address] [place] [address]604 Crook # 0.98 x10EE3/UL Normal 0.20 - 1.00 [facility] Comment on above: Performed By: #### 2 10357 #### [facility],[address] [place] [address] MONOS % 10.5 % High 0.0 - 10.0 [facility] Comment on above: Performed By: #### 2 32003 #### [facility],[address] [place], [place] [phone] Morphology Tu (Bld) [Interp] N/A Normal [facility] Comment on above: Performed By: #### 2 85786 #### [facility],[address] [place] [address] Neut # 4.24 x10EE3/UL Normal 1.50 - 7.10 [facility] Comment on above: Performed By: #### 2 41897 #### [facility],[address] [place], [place] [address] Neutrophils/100 WBC (Bld) 45.4 % Low 46.0 - 76.0 [facility] Comment on above: Performed By: #### 2 00295 #### [facility],[address] [place], [place] [id number] PLATELET 219 x10EE3/UL Normal 150 - 450 [facility] Comment on above: Performed By: #### 2 44945 #### [facility],[address] [place] [address] 43589 Platelet mean volume (Bld) [Entitic vol] 8.0 fL Normal 6.4 - 10.5 [facility] Comment on above: Result Comment: AUTO MATED DIFFERENTIAL Performed By: #### 2 02728 #### [facility],[address] [place] [address] 87387 RBC 5.10 x 10EE6/UL Normal 4.50 - 6.00 [facility] Comment on above: Performed By: #### 2 13147 #### [facility],[address] [place] [address] 24983 WBC 9.3 x 10EE3/UL Normal 4.5 - 10.8 [facility] Comment on above: Performed By: #### 2 50654 #### [facility],[address] [place] [address] 53632 CBC + DIFFon 12-07-2023 ATY LYMP 0 % Normal [facility] Comment on above: Performed By: #### 2 98563 #### [facility],[address] [place] [address] 91446 BANDS 0 % Normal 0 - 5 [facility] Comment on above: Performed By: #### 2 45938 #### [facility],[address] [place] [address] 05100 Baso # 0.02 x10EE3/UL Normal 0.00 - 0.10 [facility] Comment on above: Performed By: #### 2 12751 #### [facility],[address] [place] [address] 90712 Basophils/100 WBC (Bld) 0.3 % Normal 0.0 - 2.0 [facility] Comment on above: Performed By: #### 2 57083 #### [facility],[address] [place] [address] 57394 Basophils/100 WBC (Bld) 0.0 % Normal 0.0 - 2.0 [facility] Comment on above: Performed By: #### 2 91108 #### [facility],[address] [place] [address] 16645 CBC + DIFF Normal [facility] Comment on above: Result Comment: CBC- COMPLETE BLOOD COUNT Performed By: #### 2 87099 #### [facility],[address] [place], [place] [id number] CELL COUNT 100 Normal [facility] Comment on above: Performed By: #### 2 43247 #### [facility],[address] [place], [place] [address] EO 0.0 % Normal 0.0 - 7.0 [facility] Comment on above: Performed By: #### 2 79983 #### [facility],[address] [place] [address] EO # 0.15 x10EE3/UL Normal 0.00 - 0.50 [facility] Comment on above: Performed By: #### 2 09783 #### [facility],[address] [place] [address] Eosinophils/100 WBC (Bld) 2.2 % Normal 0.0 - 7.0 [facility] Comment on above: Performed By: #### 2 83832 #### [facility],[address] [place] [address] Erythrocyte distribution width (RBC) [Ratio] 13.5 % Normal 12.0 - 15.6 [facility] Comment on above: Performed By: #### 2 63588 #### [facility],[address] [place] [address] Hematocrit (Bld) [Volume fraction] 44.2 % Normal 40.0 - 52.0 [facility] Comment on above: Performed By: #### 2 17325 #### [facility],[address] [place] [address] Hemoglobin (Bld) [Mass/Vol] 14.4 g/dL Normal 13.0 - 17.5 [facility] Comment on above: Performed By: #### 2 26659 #### [facility],[address] [place], [place] [address] Lymph # 3.83 x10EE3/UL High 0.80 - 2.80 [facility] Comment on above: Performed By: #### 2 38874 #### [facility],[address] [place] [address] 11266 Lymphocytes/100 WBC (Bld) 55.6 % High 20.0 - 45.0 [facility] Comment on above: Performed By: #### 2 14003 #### [facility],[address] [place] [address] 78449 Lymphocytes/100 WBC (Bld) 63 % High 20 - 45 [facility] Comment on above: Performed By: #### 2 03860 #### [facility],[address] [place] [address] 46085 MANUAL DIFF SEE BELOW Normal [facility] Comment on above: Performed By: #### 2 50691 #### [facility],[address] [place] [address] 04781 MCH (RBC) [Entitic mass] 29 pg Normal 27 - 33 [facility] Comment on above: Performed By: #### 2 45067 #### [facility],[address] [place] [address] 59048 MCHC 33 X10 3 Normal 32 - 36 [facility] Comment on above: Performed By: #### 2 22915 #### [facility],[address] [place] [address] 03511 MCV (RBC) [Entitic vol] 88 fL Normal 81 - 98 [facility] Comment on above: Performed By: #### 2 25935 #### [facility],[address] [place] [address] 48530 META 0 % Normal 0 - 1 [facility] Comment on above: Performed By: #### 2 53758 #### [facility],[address] [place] [address] 73448 Metamyelocytes/100 WBC (Bld) 0 % Normal [facility] Comment on above: Performed By: #### 2 45009 #### [facility],[address] [place] [address] 58375 Crook # 0.64 x10EE3/UL Normal 0.20 - 1.00 [facility] Comment on above: Performed By: #### 2 62279 #### [facility],[address] [place] [address] 80152 MONOS 8 % Normal 0 - 10 [facility] Comment on above: Performed By: #### 2 89289 #### [facility],[address] [place] [address] MONOS % 9.4 % Normal 0.0 - 10.0 [facility] Comment on above: Performed By: #### 2 91393 #### [facility],[address] [place] [address] Morphology Tu (Bld) [Interp] NORMAL Normal [facility] Comment on above: Performed By: #### 2 56635 #### [facility],[address] [place] [address] Neut # 2.25 x10EE3/UL Normal 1.50 - 7.10 [facility] Comment on above: Performed By: #### 2 16798 #### [facility],[address] [place] [address] Neutrophils/100 WBC (Bld) 32.6 % Low 46.0 - 76.0 [facility] Comment on above: Performed By: #### 2 47704 #### [facility],[address] [place] [address] NRBC 0 /100 Normal [facility] Comment on above: Performed By: #### 2 45029 #### [place] [address] PLATELET 241 x10EE3/UL Normal 150 - 450 [facility] Comment on above: Performed By: #### 2 84826 #### [facility],[address] [place] [address] 64520 Platelet mean volume (Bld) [Entitic vol] 8.4 fL Normal 6.4 - 10.5 [facility] Comment on above: Result Comment: AUTO MATED DIFFERENTIAL Performed By: #### 2 19396 #### [facility],[address] [place] [address] 07246 RBC 5.03 x 10EE6/UL Normal 4.50 - 6.00 [facility] Comment on above: Performed By: #### 2 56920 #### [facility],[address] [place] [address] 17664 SEGS 29 % Low 46 - 76 [facility] Comment on above: Performed By: #### 2 41816 #### [facility],[address] [place] [address] 36516 WBC 6.9 x 10EE3/UL Normal 4.5 - 10.8 [facility] Comment on above: Performed By: #### 2 57374 #### [facility],[address] [place] [address] OTHER 0 Normal [facility] Comment on above: Performed By: #### 2 53076 #### [facility],[address] [place] [address] 99965 CBC + DIFFon 11-09-2023 Baso # 0.02 x10EE3/UL Normal 0.00 - 0.10 [facility] Comment on above: Performed By: #### 2 57109 #### [facility],[address] [place] [address] 55483 Basophils/100 WBC (Bld) 0.2 % Normal 0.0 - 2.0 [facility] Comment on above: Performed By: #### 2 60798 #### [facility],[address] [place] [address] 46653 CBC + DIFF Normal [facility] Comment on above: Result Comment: CBC- COMPLETE BLOOD COUNT Performed By: #### 2 47485 #### [facility],[address] [place] [address] 49205 EO # 0.17 x10EE3/UL Normal 0.00 - 0.50 [facility] Comment on above: Performed By: #### 2 49718 #### [facility],[address] [place], [place] [address] Eosinophils/100 WBC (Bld) 2.2 % Normal 0.0 - 7.0 [facility] Comment on above: Performed By: #### 2 11638 #### [facility],[address] [place] [address] Erythrocyte distribution width (RBC) [Ratio] 13.3 % Normal 12.0 - 15.6 [facility] Comment on above: Performed By: #### 2 93099 #### [facility],[address] [place] [address] Hematocrit (Bld) [Volume fraction] 46.7 % Normal 40.0 - 52.0 [facility] Comment on above: Performed By: #### 2 27896 #### [facility],[address] [place] [address] Hemoglobin (Bld) [Mass/Vol] 15.4 g/dL Normal 13.0 - 17.5 [facility] Comment on above: Performed By: #### 2 22151 #### [facility],[address] [place], [place] [address] Lymph # 4.76 x10EE3/UL High 0.80 - 2.80 [facility] Comment on above: Performed By: #### 2 37742 #### [facility],[address] [place], [place] [address] Lymphocytes/100 WBC (Bld) 60.2 % High 20.0 - 45.0 [facility] Comment on above: Performed By: #### 2 21679 #### [facility],[address] [place], [place] [id number] MANUAL DIFF N/A Normal [facility] Comment on above: Performed By: #### 2 32193 #### [facility],[address] [place], [place] [id number] MCH (RBC) [Entitic mass] 29 pg Normal 27 - 33 [facility] Comment on above: Performed By: #### 2 25363 #### [place] [address] MCHC 33 X10 3 Normal 32 - 36 [facility] Comment on above: Performed By: #### 2 77880 #### [facility],[address] [place] [address] MCV (RBC) [Entitic vol] 88 fL Normal 81 - 98 [facility] Comment on above: Performed By: #### 2 92306 #### [facility] [facility],[address] [place] [address] Crook # 0.57 x10EE3/UL Normal 0.20 - 1.00 [facility] Comment on above: Performed By: #### 2 46589 #### [place] [address] MONOS % 7.3 % Normal 0.0 - 10.0 [facility] Comment on above: Performed By: #### 2 65840 #### [place] [address] Morphology Tu (Bld) [Interp] N/A Normal [facility] Comment on above: Performed By: #### 2 51688 #### [place] [address] Neut # 2.39 x10EE3/UL Normal 1.50 - 7.10 [facility] Comment on above: Performed By: #### 2 03246 #### [place] [address] Neutrophils/100 WBC (Bld) 30.2 % Low 46.0 - 76.0 [facility] Comment on above: Performed By: #### 2 57069 #### [place] [address] PLATELET 248 x10EE3/UL Normal 150 - 450 [facility] Comment on above: Performed By: #### 2 54506 #### [facility],[address] [place] [address] 04939 Platelet mean volume (Bld) [Entitic vol] 9.0 fL Normal 6.4 - 10.5 [facility] Comment on above: Result Comment: AUTO MATED DIFFERENTIAL Performed By: #### 2 51223 #### [facility],[address] [place] [address] 57060 RBC 5.32 x 10EE6/UL Normal 4.50 - 6.00 [facility] Comment on above: Performed By: #### 2 85515 #### [facility],[address] [place] [address] 38152 WBC 7.9 x 10EE3/UL Normal 4.5 - 10.8 [facility] Comment on above: Performed By: #### 2 54846 #### [facility],[address] [place] [address] 71679 NT-proBNPon 10-29-2023 Natriuretic peptide B (Bld) [Mass/Vol] 35 pg/mL Normal 0 - 125 [facility] Comment on above: Performed By: #### 2 18971 #### [facility],[address] [place] [address] 61927 VALPROIC ACIDon 10-12-2023 Valproic Acid 45.2 ug/mL Low 50.0-100.0 [facility] Comment on above: Result Comment: Refe rence ranges and high/low indicator flags are provided as general guidelines only. The treating physician must determine appropriate target levels/dosing based on the specific clinical situation. [facility] [employer] [address] [place] [address] Cal Stone III, M.D. [id number] Performed By: #### 2 33814 #### [address] [address] CBC + DIFFon 10-11-2023 Baso # 0.03 x10EE3/UL Normal 0.00 - 0.10 [facility] Comment on above: Performed By: #### 2 83316 #### [facility],[address] [place] [address] Basophils/100 WBC (Bld) 0.4 % Normal 0.0 - 2.0 [facility] Comment on above: Performed By: #### 2 68937 #### [facility],[address] [place] [address] CBC + DIFF Normal [facility] Comment on above: Result Comment: CBC- COMPLETE BLOOD COUNT Performed By: #### 2 31586 #### [facility],[address] [place] [address] CELL COUNT 100 Normal [facility] Comment on above: Performed By: #### 2 19865 #### [facility],[address] [place] [address] EO 1.0 % Normal 0.0 - 7.0 [facility] Comment on above: Performed By: #### 2 56765 #### [facility],[address] [place] [address] EO # 0.13 x10EE3/UL Normal 0.00 - 0.50 [facility] Comment on above: Performed By: #### 2 38187 #### [facility],[address] [place] [address] Eosinophils/100 WBC (Bld) 1.5 % Normal 0.0 - 7.0 [facility] Comment on above: Performed By: #### 2 76106 #### [facility],[address] [place] [address] Erythrocyte distribution width (RBC) [Ratio] 13.2 % Normal 12.0 - 15.6 [facility] Comment on above: Performed By: #### 2 50064 #### [facility],[address] [place] [address] Hematocrit (Bld) [Volume fraction] 49.5 % Normal 40.0 - 52.0 [facility] Comment on above: Performed By: #### 2 81237 #### [facility],[address] [place] [address] Hemoglobin (Bld) [Mass/Vol] 16.2 g/dL Normal 13.0 - 17.5 [facility] Comment on above: Performed By: #### 2 18475 #### [facility],[address] [place] [address] Lymph # 4.55 x10EE3/UL High 0.80 - 2.80 [facility] Comment on above: Performed By: #### 2 50731 #### [facility],[address] [place] [address] Lymphocytes/100 WBC (Bld) 53.7 % High 20.0 - 45.0 [facility] Comment on above: Performed By: #### 2 51303 #### [facility],[address] [place] [address] Lymphocytes/100 WBC (Bld) 62 % High 20 - 45 [facility] Comment on above: Performed By: #### 2 41947 #### [facility],[address] [place] [address] MANUAL DIFF SEE BELOW Normal [facility] Comment on above: Performed By: #### 2 49949 #### [facility],[address] [place], [place] [id number] MCH (RBC) [Entitic mass] 29 pg Normal 27 - 33 [facility] Comment on above: Performed By: #### 2 57575 #### [place] [id number] MCHC 33 X10 3 Normal 32 - 36 [facility] Comment on above: Performed By: #### 2 47029 #### [facility],[address] [place] [address] MCV (RBC) [Entitic vol] 89 fL Normal 81 - 98 [facility] Comment on above: Performed By: #### 2 19252 #### [facility],[address] [place] [address] Crook # 0.72 x10EE3/UL Normal 0.20 - 1.00 [facility] Comment on above: Performed By: #### 2 85226 #### [facility],[address] [place] [address] 87604 MONOS 6 % Normal 0 - 10 [facility] Comment on above: Performed By: #### 2 48267 #### [facility],[address] [place] [address] 52608 MONOS % 8.5 % Normal 0.0 - 10.0 [facility] Comment on above: Performed By: #### 2 06916 #### [facility],[address] [place] [address] Morphology Tu (Bld) [Interp] SEE BELOW Normal [facility] Comment on above: Performed By: #### 2 09771 #### [facility],[address] [place] [address] 10427 Neut # 3.05 x10EE3/UL Normal 1.50 - 7.10 [facility] Comment on above: Performed By: #### 2 12498 #### [facility],[address] [place], [place] [address] Neutrophils/100 WBC (Bld) 35.9 % Low 46.0 - 76.0 [facility] Comment on above: Performed By: #### 2 92794 #### [facility],[address] [place] [address] 99717 PLATELET 235 x10EE3/UL Normal 150 - 450 [facility] Comment on above: Performed By: #### 2 48218 #### [facility],[address] [place] [address] 52575 Platelet mean volume (Bld) [Entitic vol] 8.8 fL Normal 6.4 - 10.5 [facility] Comment on above: Result Comment: AUTO MATED DIFFERENTIAL Performed By: #### 2 17068 #### [facility],[address] [place] [address] 08934 PLT EST NORMAL Normal [facility] Comment on above: Performed By: #### 2 23496 #### [facility],[address] [place] [address] 46371 RBC 5.56 x 10EE6/UL Normal 4.50 - 6.00 [facility] Comment on above: Performed By: #### 2 38589 #### [facility],[address] [place] [address] 21028 SEGS 31 % Low 46 - 76 [facility] Comment on above: Performed By: #### 2 56270 #### [facility],[address] [place] [address] 17515 WBC 8.5 x 10EE3/UL Normal 4.5 - 10.8 [facility] Comment on above: Performed By: #### 2 09635 #### [facility],[address] [place] [address] 83323 CMP with eGFRon 10-11-2023 AGE 58 years Normal [facility] Comment on above: Performed By: #### 2 16223 #### [facility],[address] [place] [address] 21211 Albumin [Mass/Vol] 3.8 g/dL Normal 3.4 - 5.0 [facility] Comment on above: Performed By: #### 2 78031 #### [facility],[address] [place] [address] 69857 Albumin/Globulin [Mass ratio] 1.0 {ratio} Normal 0.9 - 1.6 [facility] Comment on above: Performed By: #### 2 89963 #### [facility],[address] [place] [address] 94358 ALK PHOS 63 U/L Normal 46 - 116 [facility] Comment on above: Performed By: #### 2 47193 #### [facility],[address] [place] [address] 14918 ALT [Catalytic activity/Vol] 43 U/L Normal 16 - 63 [facility] Comment on above: Performed By: #### 2 25270 #### [facility],[address] [place] [address] 28403 Anion gap [Moles/Vol] 16 mmol/L Normal 10 - 20 [facility] Comment on above: Performed By: #### 2 97138 #### [facility],[address] [place] [address] 52205 AST [Catalytic activity/Vol] 35 U/L Normal 15 - 37 [facility] Comment on above: Performed By: #### 2 54631 #### [facility],[address] [place] [address] 31200 B/C RATIO 10 ratio Normal 0 - 30 [facility] Comment on above: Performed By: #### 2 83495 #### [facility],[address] [place] [address] 04532 Bilirubin [Mass/Vol] 0.5 mg/dL Normal 0.2 - 1.0 [facility] Comment on above: Performed By: #### 2 99519 #### [facility],[address] [place] [address] 78112 Calcium [Mass/Vol] 9.4 mg/dL Normal 8.5 - 10.1 [facility] Comment on above: Result Comment: RESU LT REPEATED Performed By: #### 2 62310 #### [facility],[address] [place] [address] 02837 Chloride [Moles/Vol] 100 mmol/L Normal 98 - 107 [facility] Comment on above: Performed By: #### 2 20917 #### [facility],[address] [place] [address] 93828 CMP with eGFR Normal [facility] Comment on above: Result Comment: COMP REHENSIVE METABOLIC PANEL Performed By: #### 2 67779 #### [facility],[address] [place] [address] 27836 CO2 [Moles/Vol] 25.7 mmol/L Normal 21.0 - 32.0 [facility] Comment on above: Performed By: #### 2 95587 #### [facility],[address] [place] [address] 28911 Creatinine [Mass/Vol] 0.84 mg/dL Normal 0.70 - 1.30 [facility] Comment on above: Performed By: #### 2 87096 #### [facility],[address] [place] [address] 03153 eGFR 95 ML/MINUTE Normal 60 - 999 [facility] Comment on above: Performed By: #### 2 76223 #### [address] [address] eGFR(AA) 115 ML/MINUTE Normal 60 - 999 [facility] Comment on above: Result Comment: ACCO RDING TO THE NATIONAL KIDNEY DISEASE EDUCATION PROGRAM(NKDE), A NORMAL eGFR IS A VALUE GREATER THAN OR EQUAL TO 60 ML/MIN/1.73 SQ METERS. CHRONIC KIDNEY DISEASE: <60mL/MIN/1.73 SQ METERS KIDNEY FAILURE: <15mL/MIN/1.73 SQ METERS THIS TEST SHOULD ONLY BE USED FOR PATIENTS 18 YEARS OF AGE AND OLDER. Performed By: #### 2 74148 #### [facility],[address] [place] [address] 81658 Globulin (S) [Mass/Vol] 4.0 g/dL High 1.5 - 3.8 [facility] Comment on above: Performed By: #### 2 54843 #### [facility],[address] [place] [address] 45348 Glucose [Mass/Vol] 112 mg/dL High 74 - 106 [facility] Comment on above: Performed By: #### 2 84347 #### [facility],[address] [place] [address] 79854 Potassium [Moles/Vol] 4.1 mmol/L Normal 3.5 - 5.1 [facility] Comment on above: Performed By: #### 2 24058 #### [facility],[address] [place], [place] [address] Protein [Mass/Vol] 7.8 g/dL Normal 6.4 - 8.2 [facility] Comment on above: Performed By: #### 2 77218 #### [facility],[address] [place] [address] Sodium [Moles/Vol] 138 mmol/L Normal 136 - 145 [facility] Comment on above: Performed By: #### 2 98244 #### [facility],[address] [place] [address] Urea nitrogen [Mass/Vol] 8 mg/dL Normal 7 - 18 [facility] Comment on above: Performed By: #### 2 41573 #### [facility],[address] [place], [place] [address] HEMOGLOBIN A1C (POM)on 10-10 Glucose [Mass/Vol] 171.4 mg/dL High 0.0 - 0.0 [facility] Comment on above: Result Comment: BLDo HEMOGLOBIN A1C REFERENCE RANGESBLDo Suggested Diagnosis HbA1c(%) HbA1C (mmol/mol Diabetic >/=6.5 >/=48 Prediabetes 5.7 - 6.4 39 - 47 Normal <5.7 <39 Performed By: #### 2 50580 #### [facility],[address] [place], [place] [address] HbA1c (Bld) [Mass fraction] 7.6 % High 0.0 - 6.5 [facility] Comment on above: Performed By: #### 2 91498 #### [facility],[address] [place], [place] [address] Valproate SerPl-mCncon 10-10 Valproate [Mass/Vol] 45.2 ug/mL Low 50.0-100.[address] [facility] Comment on above: Order Comment: Speci men Type: BLOOD SPECIMEN Ordering Facility: [facility] Address: [address] [place] [address] Result Comment: Refe rence ranges and high/low indicator flags are provided as general guidelines only. The treating physician must determine appropriate target levels/dosing based on the specific clinical situation. Performed By: #### 4 086-5 #### [facility] CLIA [id number] [address] [facility] [address] [place] CBC + DIFFon 09-13-2023 Baso # 0.02 x10EE3/UL Normal 0.00 - 0.10 [facility] Comment on above: Performed By: #### 2 53138 #### [facility],[address] [place] [address] 54621 Basophils/100 WBC (Bld) 0.3 % Normal 0.0 - 2.0 [facility] Comment on above: Performed By: #### 2 45913 #### [facility],[address] [place], [place] [address] CBC + DIFF Normal [facility] Comment on above: Result Comment: CBC- COMPLETE BLOOD COUNT Performed By: #### 2 98371 #### [facility],[address] [place] [address] 60556 EO # 0.16 x10EE3/UL Normal 0.00 - 0.50 [facility] Comment on above: Performed By: #### 2 78290 #### [facility],[address] [place] [address] 18236 Eosinophils/100 WBC (Bld) 2.0 % Normal 0.0 - 7.0 [facility] Comment on above: Performed By: #### 2 03681 #### [facility],[address] [place] [address] 10562 Erythrocyte distribution width (RBC) [Ratio] 13.3 % Normal 12.0 - 15.6 [facility] Comment on above: Performed By: #### 2 01458 #### [facility],[address] [place], [place] [address] Hematocrit (Bld) [Volume fraction] 49.3 % Normal 40.0 - 52.0 [facility] Comment on above: Performed By: #### 2 61486 #### [facility],[address] [place], [place] [address] Hemoglobin (Bld) [Mass/Vol] 16.3 g/dL Normal 13.0 - 17.5 [facility] Comment on above: Performed By: #### 2 70953 #### [facility],[address] [place] [address] Lymph # 4.15 x10EE3/UL High 0.80 - 2.80 [facility] Comment on above: Performed By: #### 2 91426 #### [facility],[address] [place], [place] [address] Lymphocytes/100 WBC (Bld) 52.0 % High 20.0 - 45.0 [facility] Comment on above: Performed By: #### 2 16963 #### [facility],[address] [place] [address] 12576 MANUAL DIFF N/A Normal [facility] Comment on above: Performed By: #### 2 81037 #### [facility],[address] [place], [place] [address] MCH (RBC) [Entitic mass] 29 pg Normal 27 - 33 [facility] Comment on above: Performed By: #### 2 93380 #### [facility],[address] [place], [place] [address] MCHC 33 X10 3 Normal 32 - 36 [facility] Comment on above: Performed By: #### 2 29441 #### [facility],[address] [place] [address] 53174 MCV (RBC) [Entitic vol] 88 fL Normal 81 - 98 [facility] Comment on above: Performed By: #### 2 61945 #### [facility],[address] [place] [address] 43400 Crook # 0.75 x10EE3/UL Normal 0.20 - 1.00 [facility] Comment on above: Performed By: #### 2 63565 #### [facility],[address] [place] [address] 21572 MONOS % 9.4 % Normal 0.0 - 10.0 [facility] Comment on above: Performed By: #### 2 98461 #### [facility],[address] [place] [address] 69637 Morphology Tu (Bld) [Interp] N/A Normal [facility] Comment on above: Performed By: #### 2 81272 #### [facility],[address] [place] [address] 12645 Neut # 2.90 x10EE3/UL Normal 1.50 - 7.10 [facility] Comment on above: Performed By: #### 2 10150 #### [facility],[address] [place] [address] 17435 Neutrophils/100 WBC (Bld) 36.3 % Low 46.0 - 76.0 [facility] Comment on above: Performed By: #### 2 17692 #### [facility],[address] [place] [address] 97030 PLATELET 256 x10EE3/UL Normal 150 - 450 [facility] Comment on above: Performed By: #### 2 88922 #### [facility],[address] [place] [address] 27232 Platelet mean volume (Bld) [Entitic vol] 9.1 fL Normal 6.4 - 10.5 [facility] Comment on above: Result Comment: AUTO MATED DIFFERENTIAL Performed By: #### 2 78369 #### [facility],[address] [place] [address] 61384 RBC 5.58 x 10EE6/UL Normal 4.50 - 6.00 [facility] Comment on above: Performed By: #### 2 90133 #### [facility],[address] [place], [place] [address] WBC 8.0 x 10EE3/UL Normal 4.5 - 10.8 [facility] Comment on above: Performed By: #### 2 14751 #### [facility],[address] [place] [address] CBC + DIFFon 08-16-2023 Baso # 0.02 x10EE3/UL Normal 0.00 - 0.10 [facility] Comment on above: Performed By: #### 2 74044 #### [facility],[address] [place] [address] 14601 Basophils/100 WBC (Bld) 0.2 % Normal 0.0 - 2.0 [facility] Comment on above: Performed By: #### 2 68505 #### [facility],[address] [place] [address] CBC + DIFF Normal [facility] Comment on above: Result Comment: CBC- COMPLETE BLOOD COUNT Performed By: #### 2 49874 #### [facility],[address] [place] [address] EO # 0.24 x10EE3/UL Normal 0.00 - 0.50 [facility] Comment on above: Performed By: #### 2 03079 #### [facility],[address] [place], [place] [address] Eosinophils/100 WBC (Bld) 2.8 % Normal 0.0 - 7.0 [facility] Comment on above: Performed By: #### 2 25737 #### [facility],[address] [place] [address] Erythrocyte distribution width (RBC) [Ratio] 13.3 % Normal 12.0 - 15.6 [facility] Comment on above: Performed By: #### 2 31906 #### [facility],[address] [place] [address] Hematocrit (Bld) [Volume fraction] 48.7 % Normal 40.0 - 52.0 [facility] Comment on above: Performed By: #### 2 65917 #### [facility],[address] [place] [address] Hemoglobin (Bld) [Mass/Vol] 16.1 g/dL Normal 13.0 - 17.5 [facility] Comment on above: Performed By: #### 2 48126 #### [facility],[address] [place] [address] Lymph # 4.79 x10EE3/UL High 0.80 - 2.80 [facility] Comment on above: Performed By: #### 2 72118 #### [place] [address] Lymphocytes/100 WBC (Bld) 56.5 % High 20.0 - 45.0 [facility] Comment on above: Performed By: #### 2 49619 #### [facility],[address] [place] [address] MANUAL DIFF REVIEWED Normal [facility] Comment on above: Performed By: #### 2 75187 #### [place] [address] MCH (RBC) [Entitic mass] 29 pg Normal 27 - 33 [facility] Comment on above: Performed By: #### 2 31196 #### [place] [address] MCHC 33 X10 3 Normal 32 - 36 [facility] Comment on above: Performed By: #### 2 31576 #### [place] [address] MCV (RBC) [Entitic vol] 89 fL Normal 81 - 98 [facility] Comment on above: Performed By: #### 2 [id number] #### [place] [address] [place]ok # 0.67 x10EE3/UL Normal 0.20 - 1.00 [facility] Comment on above: Performed By: #### 2 38576 #### [facility],[address] [place] [address] MONOS % 7.9 % Normal 0.0 - 10.0 [facility] Comment on above: Performed By: #### 2 14510 #### [facility],[address] [place], [place] [id number] Morphology Tu (Bld) [Interp] REVIEWED Normal [facility] Comment on above: Performed By: #### 2 99175 #### [facility],[address] [place] [address] Neut # 2.77 x10EE3/UL Normal 1.50 - 7.10 [facility] Comment on above: Performed By: #### 2 27108 #### [facility],[address] [place], [place] [id number] Neutrophils/100 WBC (Bld) 32.6 % Low 46.0 - 76.0 [facility] Comment on above: Performed By: #### 2 13441 #### [facility],[address] [place] [address] PLATELET 242 x10EE3/UL Normal 150 - 450 [facility] Comment on above: Performed By: #### 2 18377 #### [facility],[address] [place] [address] Platelet mean volume (Bld) [Entitic vol] 8.2 fL Normal 6.4 - 10.5 [facility] Comment on above: Result Comment: AUTO MATED DIFFERENTIAL Performed By: #### 2 77054 #### [facility],[address] [place] [address] RBC 5.50 x 10EE6/UL Normal 4.50 - 6.00 [facility] Comment on above: Performed By: #### 2 16719 #### [facility],[address] [place], [place] [phone] WBC 8.5 x 10EE3/UL Normal 4.5 - 10.8 [facility] Comment on above: Performed By: #### 2 38896 #### [facility],[address] [place] [address] CNOVon 11-13-2022 CNOV Office Visit (URCANT ) GEREMIAS GALEANO ([id number]) 1965 M Date Time Provider Department 11/13/22 9:00 AM IDA HERRERA URSORAYA During your visit today, we recorded the following information about you: Blood pressure Weight Height 125/85 143.8 kg 1.778 m Ida Herrera APRN.ENGLISH PROFESSOR 11/13/2022 9:21 AM Signed [facility] ESTABLISHED PATIENT OFFICE VISIT Patient presents with: Follow Up: Patient here for 1 year f/u. Possible scrotal problem. HISTORY OF PRESENT ILLNESS Geremias Galeano is a 57 year old male who is here for follow up of hydrocele. Pt is doing well, no testicular pain or discomfort. No bothersome LUTS or hematuria. Review of Systems Constitutional: Negative for appetite change. HENT: Negative for sneezing. Respiratory: Negative for cough. Cardiovascular: Negative for chest pain. Gastrointestinal: Negative for nausea and vomiting. Skin: Negative for rash. Neurological: Negative for facial asymmetry. The remainder of the ROS was reviewed and is negative. LAB Creatinine Date Value Ref Range Status 01/08/2022 0.72 (L) 0.73 - 1.22 mg/dL Final No results found for: PSA, PSASC No results found for: UGLUCPOC, UBILIPOC, UKETONPOC, USGPOC, UHBPOC, UPHPOC, UPROPOC, UUROPOC, UNITPOC, UWBCPOC, UCOLPOC, UCLARPOC] MEDICATIONS acetaminophen (TYLENOL) 325 mg tablet Take 325 mg by mouth every 6 hours as needed. aspirin 81 mg chewable tablet as directed. JARDIANCE 10 mg tablet famotidine (PEPCID) 20 mg tablet LANTUS SOLOSTAR U-100 INSULIN 100 unit/mL (3 mL) furosemide (LASIX) 20 mg tablet lactulose 10 gram/15 mL solution metoprolol succinate ER (TOPROL XL) 50 mg 24 hr tablet nitroglycerin sublingual (NITROQUICK) 0.4 mg SL tablet as directed. senna-docusate (SENNA-S) 8.6-50 mg per tablet 1 tablet as needed Orally Twice a day CLOZAPINE 25 MG TAB Take THREE (3) tablets four (4) times daily. FLUTICASONE 50 MCG/ACTUATION NASAL SPRAY, SUSP ONE SPRAY IN EACH NOSTRIL DAILY METFORMIN 500 MG TAB Take one(1) tablet two(2) times daily. (BREAKFAST AND DINNER) ATORVASTATIN 10 MG TAB Take one(1) tablet at bedtime. (Patient not taking: Reported on 11/13/2022) BENZTROPINE 1 MG TAB Take one(1) tablet two(2) times daily. (Patient not taking: Reported on 11/13/2022) CITALOPRAM 20 MG TAB Take one(1) tablet daily. TAKE WITH ONE 10 MG TABLET TO TOTAL 30 MG DAILY (Patient not taking: Reported on 11/13/2022) CITALOPRAM 10 MG TAB Take one(1) tablet daily. (Patient not taking: Reported on 11/13/2022) DILTIAZEM SR 120 MG 24 HR CAP Take one(1) tablet daily. (Patient not taking: Reported on 11/13/2022) DIVALPROEX 500 MG TAB, DELAYED RELEASE Take two(2) tablets twice daily. (Patient not taking: Reported on 11/13/2022) HALOPERIDOL 5 MG TAB Take one(1) tablet two(2) times daily. (Patient not taking: Reported on 11/13/2022) ISOSORBIDE DINITRATE 20 MG TAB Take one(1) tablet two(2) times daily. ( 9 am AND 4 pm ) (Patient not taking: Reported on 11/13/2022) POTASSIUM CHLORIDE SR 10 MEQ TAB Take one(1) tablet daily. (Patient not taking: Reported on 11/13/2022) TOPIRAMATE 100 MG TAB Take one(1) tablet two(2) times daily. (Patient not taking: Reported on 11/13/2022) TRIAMTERENE-HYDROCHLOROTHIAZ OLIVIA 37.5 MG-25 MG TAB Take one(1) tablet daily. (Patient not taking: Reported on 11/13/2022) QUETIAPINE 300 MG TAB Take one(1) tablet at bedtime. (Patient not taking: Reported on 11/13/2022) QUETIAPINE 300 MG TAB Take one(1) tablet in the morning. (Patient not taking: Reported on 11/13/2022) 0 HISTORIES No past medical history on file. No past surgical history on file. No family history on file. SOCIAL HISTORY Social History Tobacco Use Smoking status: Never Smokeless tobacco: Never Substance Use Topics Alcohol use: Never Drug use: Never BP 125/85 Ht 177.8 cm (5' 10) Wt (!) 143.8 kg (317 lb) BMI 45.48 kg/m? Physical Exam Genitourinary: Comments: Normal scrotal exam, no pain on palpation ASSESSMENT/PLAN: 1. Other hydrocele - ICD9: 603.8, ICD10: N43.2 Doing well, f/u prn Ida Herrera APRN.ENGLISH PROFESSOR This note was partially created using voice recognition software and is inherently subject to errors including those of syntax and sound-alike substitutions which may escape proofreading. In such instances, original meaning may be extrapolated by contextual derivation. Allergies As of Date: 11/13/2022 (No Known Allergies) Date Reviewed: 11/13/2022 Reviewed by: Ida Herrera APRN.ENGLISH PROFESSOR - Fully Assessed Reason for Visit: Follow Up [171] Cmt: Patient here for 1 year f/u. Possible scrotal problem. Visit Diagnosis:Other hydrocele [N43.2] Prescriptions as of 11/13/2022 - acetaminophen (TYLENOL) 325 mg tablet Take 325 mg by mouth every 6 hours as needed. - aspirin 81 mg chewable tablet as directed. - JARDIANCE 10 mg tablet - famotidine (PEPCID) (more content not included)... Normal [facility] Hemoglobin A1con 02-11-2021 Glucose [Mass/Vol] 335 mg/dL Normal [facility] Comment on above: Performed By: #### H BA1C #### [facility] [place] Routine Lab [address] [place], [place] [address] HbA1c (Bld) [Mass fraction] 13.3 % High 4.3-5.6 [facility] Reference Lab Comment on above: Performed By: #### H BA1C #### [facility] [place] Routine Lab [address] [place], [place] [address] Hemoglobin A1con 01-07-2021 Glucose [Mass/Vol] 203 mg/dL Normal [facility] Reference Lab Comment on above: Performed By: #### H BA1C, VPA #### [facility] [place] Routine Lab [address] [place], [place] [address] HbA1c (Bld) [Mass fraction] 8.7 % High 4.3-5.6 [facility] Comment on above: Performed By: #### H BA1C, VPA #### [facility] [place] Routine Lab [address] [place] [address] Valproic Acidon 01-07-2021 Valproic Acid 25.7 ug/mL Low 50-100 [facility] Comment on above: Performed By: #### H BA1C, VPA #### [facility] [place] Routine Lab [address] [place], [place] [address] Valproic Acidon 10-08-2020 Valproic Acid 23.7 ug/mL Low 50-100 [facility] Comment on above: Performed By: #### V PA #### [facility] [place] Routine Lab [address] [place], [place] [address] Transferrinon 08-10-2020 Transferrin [Mass/Vol] 230 mg/dL Normal 200-360 [facility] Comment on above: Performed By: #### T RANSF #### [facility] [place] Routine Lab [address] [place], [place] [address] Hemoglobin A1con 07-23-2020 Glucose [Mass/Vol] 97 mg/dL Normal [facility] Reference Lab Comment on above: Performed By: #### H BA1C #### [facility] Routine Lab [address] [place] [address] HbA1c (Bld) [Mass fraction] 5.0 % Normal 4.3-5.6 [facility] Comment on above: Performed By: #### [place] BA1C #### [facility] Routine Lab [address] [place], [place] [address] .Auto Diffon 07-19-2020 Basophil, Absolute 0.00 10 3/mcL Normal 0.00-0.27 [facility] ([place]) Comment on above: Performed By: #### C BC, ADIFF, ANEU, BMP, GFR #### [address] [address] Basophils/100 WBC (Bld) 0.4 % Normal 0.0-2.5 [facility] ([place]) Comment on above: Performed By: #### C BC, ADIFF, ANEU, BMP, GFR #### [address] [address] Eosinophil, Absolute 0.20 10 3/mcL Normal 0.00-0.65 [facility] ([place]) Comment on above: Performed By: #### C BC, ADIFF, ANEU, BMP, GFR #### [address] [address] Eosinophils/100 WBC (Bld) 1.8 % Normal 0.0-6.0 [facility] ([place] Comment on above: Performed By: #### C BC, ADIFF, ANEU, BMP, GFR #### [address] [address] Lymphocyte, Absolute 2.80 10 3/mcL Normal 0.90-4.32 [facility] ([place] Comment on above: Performed By: #### C BC, ADIFF, ANEU, BMP, GFR #### [address] [address] Lymphocytes/100 WBC (Bld) 31.1 % Normal 20.0-40.0 [facility] ([place] Comment on above: Performed By: #### C BC, ADIFF, ANEU, BMP, GFR #### [address] [address] Monocyte, Absolute 0.80 10 3/mcL Normal 0.09-1.40 [facility] ([place] Comment on above: Performed By: #### C BC, ADIFF, ANEU, BMP, GFR #### [address] [address] Monocytes/100 WBC (Bld) 8.9 % Normal 2.0-13.0 [facility] ([place] Comment on above: Performed By: #### C BC, ADIFF, ANEU, BMP, GFR #### [address] [address] Neutrophils/100 WBC (Bld) 57.8 % Normal 50.0-75.0 [facility] ([place] Comment on above: Performed By: #### C BC, ADIFF, ANEU, BMP, GFR #### [address] [address] .GFRon 07-19-2020 GFR Non- >60 Normal [facility] ([place] Comment on above: Result Comment: GFR Population mean for , Non- Americans Ages 20-29 = 116 mL/min/1.73 sq.m. Ages 30-39 = 107 mL/min/1.73 sq.m. Ages 40-49 = 99 mL/min/1.73 sq.m. Ages 50-59 = 93 mL/min/1.73 sq.m. Ages 60-69 = 85 mL/min/1.73 sq.m. Ages 70+ = 75 mL/min/1.73 sq.m. Chronic Kidney Disease: Less than 60 mL/min/1.73 square meters End Stage Renal Disease: Less than 15 mL/min/1.73 square meters Performed By: #### C BC, ADIFF, ANEU, BMP, GFR #### [address] [address] GFR >60 Normal [facility] ([place]) Comment on above: Result Comment: GFR Population mean for , Non- Americans Ages 20-29 = 116 mL/min/1.73 sq.m. Ages 30-39 = 107 mL/min/1.73 sq.m. Ages 40-49 = 99 mL/min/1.73 sq.m. Ages 50-59 = 93 mL/min/1.73 sq.m. Ages 60-69 = 85 mL/min/1.73 sq.m. Ages 70+ = 75 mL/min/1.73 sq.m. Chronic Kidney Disease: Less than 60 mL/min/1.73 square meters End Stage Renal Disease: Less than 15 mL/min/1.73 square meters Performed By: #### C BC, ADIFF, ANEU, BMP, GFR #### [address] [address] .NEUABSon 07-19-2020 Neutrophil, Absolute 5.30 10 3/mcL Normal 2.25-8.10 [facility] ([place]) Comment on above: Performed By: #### C BC, ADIFF, ANEU, BMP, GFR #### [address] [address] BMPon 07-19-2020 BUN/Creatinine Ratio 16.0 ratio Normal 10.0-22.0 [facility] ([place] Comment on above: Performed By: #### C BC, ADIFF, ANEU, BMP, GFR #### [address] [address] Calcium [Mass/Vol] 9.7 mg/dL Normal 8.7-10.4 [facility] ([place]) Comment on above: Result Comment: No te - New Reference Range in effect 19 Performed By: #### C BC, ADIFF, ANEU, BMP, GFR #### [address] [address] Chloride [Moles/Vol] 104 mmol/L Normal 98-110 [facility] ([place]) Comment on above: Performed By: #### C BC, ADIFF, ANEU, BMP, GFR #### [address] [address] CO2 [Moles/Vol] 31 mmol/L Normal 22-32 [facility] ([place] Comment on above: Performed By: #### C BC, ADIFF, ANEU, BMP, GFR #### [address] [address] Creatinine [Mass/Vol] 0.75 mg/dL Normal 0.60-1.40 [facility] ([place]) Comment on above: Performed By: #### C BC, ADIFF, ANEU, BMP, GFR #### [address] [address] Electrolyte Balance 6.0 mEq/L Normal 4.0-15.0 [facility] ([place]) Comment on above: Performed By: #### C BC, ADIFF, ANEU, BMP, GFR #### [place] [id number] Glucose [Mass/Vol] 90 mg/dL Normal 70-110 [facility] ([place] Comment on above: Performed By: #### C BC, ADIFF, ANEU, BMP, GFR #### [place] [address] Potassium [Moles/Vol] 4.2 mmol/L Normal 3.5-5.0 [facility] ([place] Comment on above: Performed By: #### C BC, ADIFF, ANEU, BMP, GFR #### [place] [id number] Sodium [Moles/Vol] 141 mmol/L Normal 136-145 [facility] ([place] Comment on above: Performed By: #### C BC, ADIFF, ANEU, BMP, GFR #### [place] [id number] Urea nitrogen [Mass/Vol] 12.0 mg/dL Normal 8.0-22.0 [facility] ([place] Comment on above: Performed By: #### C BC, ADIFF, ANEU, BMP, GFR #### [address] [address] CBCon 07-19-2020 Erythrocyte distribution width (RBC) [Ratio] 14.7 % Normal 11.5-15.5 [facility] ([place] Comment on above: Performed By: #### C BC, ADIFF, ANEU, BMP, GFR #### [address] [address] Hematocrit (Bld) [Volume fraction] 39.0 % Low 40.0-52.0 [facility] ([place] Comment on above: Performed By: #### C BC, ADIFF, ANEU, BMP, GFR #### [place] [address] Hgb 13.1 G/dL Normal 13.0-17.5 [facility] ([place] Comment on above: Performed By: #### C BC, ADIFF, ANEU, BMP, GFR #### [place] [address] MCH (RBC) [Entitic mass] 29.2 pg Normal 27.0-33.0 [facility] ([place] Comment on above: Performed By: #### C BC, ADIFF, ANEU, BMP, GFR #### [place] [address] MCHC 33.7 G/dL Normal 32.0-36.0 [facility] ([place] Comment on above: Performed By: #### C BC, ADIFF, ANEU, BMP, GFR #### [place] [address] MCV (RBC) [Entitic vol] 86.7 fL Normal 81.0-100.0 [facility] ([place] Comment on above: Performed By: #### C BC, ADIFF, ANEU, BMP, GFR #### [place] [address] Platelet 230 10 3/mcL Normal 150-450 [facility] ([place] Comment on above: Performed By: #### C BC, ADIFF, ANEU, BMP, GFR #### [place] [address] Platelet mean volume (Bld) [Entitic vol] 7.7 fL Normal 6.4-10.5 [facility] ([place] Comment on above: Performed By: #### C BC, ADIFF, ANEU, BMP, GFR #### [place] [address] RBC 4.50 10 6/mcL Normal 4.50-6.00 [facility] ([place] Comment on above: Performed By: #### C BC, ADIFF, ANEU, BMP, GFR #### [place] [address] WBC 9.10 10 3/mcL Normal 4.50-10.80 [facility] ([place] Comment on above: Performed By: #### C BC, ADIFF, ANEU, BMP, GFR #### [place] [address] [id number] 07-18-2020 Date of Onset 20200717 Invalid Interpretation Code [facility] ([place] Comment on above: Performed By: #### C OVID19 #### [place] [address] Employed in Healthcare [facility] ([place] Comment on above: Performed By: #### C OVID19 #### [place] [address] First Test [facility] ([place] Comment on above: Performed By: #### C OVID19 #### [place] [address] Hospitalized [facility] ([place] Comment on above: Performed By: #### C OVID19 #### [place] [address] ICU [facility] ([place] Comment on above: Performed By: #### C OVID19 #### [place] [address] Not [facility] ([place] Comment on above: Performed By: #### C OVID19 #### [place] [address] Resides in Congregate Care Setting [facility] ([place] Comment on above: Performed By: #### C OVID19 #### [place] [address] SARS-CoV-2 (COVID-19) RNA NATI+probe Ql (Unsp spec) Nasopharyngeal [facility] ([place] Comment on above: Performed By: #### C OVID19 #### [facility] [address] [place], [place] [address] SARS-CoV-2 (COVID-19) RNA NATI+probe Ql (Unsp spec) Negative Normal Negative [facility] ([place] Comment on above: Performed By: #### C OVID19 #### [address] [address] SARS-CoV-2 (COVID-19) RNA NATI+probe Ql (Unsp spec) Normal [facility] ([place]) Comment on above: Result Comment: This test is being used under the FDA EUA procedure. This assay has been validated in the [facility] for use with nasopharyngeal and oropharyngeal specimens in [facility] or [facility]. If a non-validated specimen or test collection method was used, please interpret the results with caution, especially if the test result is negative. A negative test result for this test means that SARS-CoV-2 RNA was not present in the specimen above the limit of detection. However, a negative result does not rule out COVID-19 and should not be used as the sole basis for treatment or patient management decisions. A negative result does not exclude the possibility of COVID-19. When diagnostic testing is negative, the possibility of a false negative result should be considered in the context of a patient's recent exposures and the presence of clinical signs and symptoms consistent with COVID-19. The possibility of a false negative result should especially be considered if the patient?s recent exposures or clinical presentation indicate that COVID-19 is likely, and diagnostic tests for other causes of illness (e.g., other respiratory illness) are negative. If COVID-19 is still suspected based on exposure history together with other clinical findings, re-testing should be considered by healthcare providers in consultation with public health authorities. The [employer] SARS-CoV-2 Reagents for [employer] System is a real-time RT-PCR test intended for the qualitative detection of nucleic acid from the SARS-CoV-2 in nasopharyngeal and oropharyngeal swab samples. COVID-19 Int Performed By: #### C OVID19 #### [address] [address] Symptomatic as Defined by CDC Unknown Normal [facility] ([place]) Comment on above: Performed By: #### C OVID19 #### [place] [address] [id number] 05-04-2021 Date of Onset 20200708 Invalid Interpretation Code [facility] ([place] Comment on above: Performed By: #### C OVID19 #### [place] [address] Employed in Healthcare Unknown [facility] ([place] Comment on above: Performed By: #### C OVID19 #### [place] [address] First Test Unknown [facility] ([place] Comment on above: Performed By: #### C OVID19 #### [place] [address] Hospitalized Unknown [facility] ([place] Comment on above: Performed By: #### C OVID19 #### [place] [address] ICU Unknown [facility] ([place] Comment on above: Performed By: #### C OVID19 #### [place] [address] Not [facility] ([place] Comment on above: Performed By: #### C OVID19 #### [place] [address] Resides in Congregate Care Setting Yes [facility] ([place] Comment on above: Performed By: #### C OVID19 #### [place] [address] SARS-CoV-2 (COVID-19) RNA NATI+probe Ql (Unsp spec) Nasopharyngeal [facility] ([place] Comment on above: Performed By: #### C OVID19 #### [place] [address] SARS-CoV-2 (COVID-19) RNA NATI+probe Ql (Unsp spec) Unresolved Normal Negative [facility] ([place] Comment on above: Performed By: #### C OVID19 #### [place] [address] SARS-CoV-2 (COVID-19) RNA NATI+probe Ql (Unsp spec) [facility] ([place] Comment on above: Result Comment: This test is being used under the FDA EUA procedure. This assay has been validated in the [facility] for use with nasopharyngeal and oropharyngeal specimens in [facility] or [facility]. If a non-validated specimen or test collection method was used, please interpret the results with caution, especially if the test result is negative. An Indeterminate (IND), Unresolved (UNR), or Incomplete (INC) result was obtained. The test was repeated with similar results. REPEAT COLLECTION AND TESTING IS RECOMMENDED. The [employer] SARS-CoV-2 Reagents for GenAudio System is a real-time RT-PCR test intended for the qualitative detection of nucleic acid from the SARS-CoV-2 in nasopharyngeal and oropharyngeal swab samples. COVID-19 Int Performed By: #### C OVID19 #### [address] [address] Symptomatic as Defined by CDC Unknown Normal [facility] ([place] Comment on above: Performed By: #### C OVID19 #### [address] [address] Hemoglobin A1con 05-04-2020 Glucose [Mass/Vol] 80 mg/dL Normal [facility] Reference Lab Comment on above: Performed By: #### H BA1C #### [facility] [place] Routine Lab [address] [place], [place] [id number] HbA1c (Bld) [Mass fraction] 4.4 % Normal 4.3-5.6 [facility] Reference Lab Comment on above: Performed By: #### H BA1C #### [facility] [place] Routine Lab [address] [place], [place] [address] Final Surgical Pathology Rep [facility] 11-14-2019 Final Surgical Pathology Report . Pathology Reports Accession: Collected Date/Time: Received Date/Time: Pathologist: [id number] 11/09/2019 09:15 EDT 11/10/2019 09:15 EDT DO KARINA MÁRQUEZ Final Surgical Pathology Report DIAGNOSIS: GALLBLADDER - MILD CHRONIC CHOLECYSTITIS. COMMENT: [facility] - A# [id number] CLINICAL INFORMATION: BILIARY COLIC SPECIMEN: GALLBLADDER GROSS DESCRIPTION: Received in formalin, labeled with the patients name, Case #[id number], and gallbladder Dimensions-10 x 2.7 x 1.5 cm Cystic duct/pericystic duct lymph node-patent, no lymph node Serosal surface-green -bowens, smooth Luminal contents-dark green liquid bile no calculi Mucosal surface-green stained, velvety Wall thickness-0.2 cm RS- 1 Dictated by LINDA QUESADA MICROSCOPIC DESCRIPTION: Slides reviewed. Electronically Signed by Pathology Report verified by [facility] Electronically signed by KARINA MÁRQUEZ DO Sign out Date: 11/14/2019 12:58 Performing Lab: [address] ([place]) Comment on above: Performed By: #### S PFR #### [place] [address] Final Surgical Pathology Rep [facility] 10-23-2019 Final Surgical Pathology Report . Pathology Reports Accession: Collected Date/Time: Received Date/Time: Pathologist: [id number] 10/19/2019 10:10 EDT 10/20/2019 10:10 EDT MD MIMI VIDES Final Surgical Pathology Report DIAGNOSIS: RECTUM, BIOPSY - HYPERPLASTIC POLYP. COMMENT: [facility] - [id number] CLINICAL INFORMATION: ABNORMAL WEIGHT LOSS SPECIMEN: RECTAL POLYP GROSS DESCRIPTION: Received in formalin, labeled with the patient's name, Case #[id number], and rectal polyp one peoples polyp measuring 0.2 cm. TS -1. Dictated by LINDA QUESADA MICROSCOPIC DESCRIPTION: Slides reviewed. Electronically Signed by Pathology Report verified by [facility] Electronically signed by MIMI VIDES MD Sign out Date: 10/23/2019 13:19 Performing Lab: [address] ([place]) Comment on above: Performed By: #### S PFR #### [place] [address] EMERGENCY DEPARTMENT REPORTo n 10-25-2017 EMERGENCY DEPARTMENT REPORT [place], [place] [address]SAUYOZ INFORMATION MANAGEMENTEMERGENCY DEPARTMENT REPORTPatient: MITRA GALEANO MARK N M.D.[id number] MStatus: DEP ER EDDate of Service: 10/20/17This 52-year-old male is seen with EMILI Rosas. The patient has had chest pain thathe describes as pain in the side of his ribs. States it also radiates to the flank. Joe told others that he had some anterior chest pain, but this is not the history he givesme. He is somewhat of a poor informant and historian. The pain does not seem to bepleuritic. Again, difficult based on his descriptions. He denies any recent falls orinjuries. He has had somewhat of a cough, but just this morning. Denies any shortness ofbreath. Well-appearing. He does have a history of schizophrenia [facility]PHYSICAL EXAMINATIONHEENT: Normocephalic, atraumatic. Eyes and pupils grossly normal. Mucous membranesmoist. Patient is watching TV, resting comfortably. He does have some tenderness topalpation over the right side of the chest wall. There is no ecchymosis, edema, erythema,crepitus or any obvious signs on examination. Good peripheral pulses. Skin is withoutrash. No petechiae or purpura. Neurologic exam: [place] coma scale is 15. No grossfocal deficit.The patient has above complaints. He has a history of chest pain. He is a somewhatdifficult informant, very atypical with my history. We did obtain some labs, chest x-ray.The patient's studies are negative. In lieu of his difficult informant status and historyof a recent positive stress test we agreed to at least do a delta troponin. The patient,as stated, has very atypical pain. He had refused catheterization after the stress test inthe past. It does not sound like cardiac pain, but given his status as stated of being adifficult historian we will obtain troponin. This is negative. The patient will bedischarged. He has been doing fine here, no further pain.IMPRESSION(S) 10/25/172052 KARINA NOVAK M.D.cc: KARINA NOVAK M.D.; KARINA WRIGHT D.O. << Signature on File>> Reported By: KARINA NOVAK M.D. Signed By: KARINA NOVAK M.D.Tests performed at:[place] [phone] [facility] EMERGENCY DEPARTMENT REPORT [place], [place] [address]LLXEEC INFORMATION MANAGEMENTEMERCHI [facility] DEPART[facility] REPORTPatient: GLAEANO,KARINA MANRIQUEZ M.D.[id number] 52 MStatus: [facility] ER EDDate of Service: 10/20/17The patient is seen with Lou Parker. The patient complains of rib soreness on theright. States it feels similar when he had pneumonia. This was not very recent butapparently was within the last year. The patient is somewhat of a poor informant. Hecoughed a little bit this morning, nothing significant or persistent. States he has hadpain in his low back. Denies any recent falls. Does feel like he has had some body aches.Also feels sleepy.PHYSICAL EXAMINATIONWell-appearing pleasant black male resting quietly in no apparent distress, nontoxic inappearance. HEENT is normocephalic, atraumatic. Eyes: Pupils are grossly normal. Mucousmembranes are moist. Neck is supple. No meningismus or stridor. No difficulty swallowingor drooling. No lung sounds clear to auscultation. No wheezing, rhonchi or rales. Equalbreath sounds noted. Heart is a regular rate and rhythm without murmur, rub or gallop. Thepatient has no obvious tenderness to palpation over the right side of the chest wall.There is some tenderness to palpation in the lower lumbar spine. Edema of extremities.Lung sounds are clear. Heart is a regular rate and rhythm without murmur.EMERGENCY DEPARTMENT COURSEPatient has signs of pain that are rather low area here on the right, certainly sound verytypical for cardiac. We will obtain some labs here. EKG, chest x-ray.IMPRESSION 10/25/17 1516 KARINA NOVAK M.D.cc: KARINA NOVAK M.D.; KARINA WRIGHT D.O. << Signature on File>> Reported By: KARINA NOVAK M.D. Signed By: KARINA NOVAK M.D.Tests performed at:[facility] [place], [place] [phone] [facility] ED REPORTon 10-22-2017 ED REPORT [place], [place] [address]GRKYJY INFORMATION MANAGEMENTEMERGENCY DEPARTMENT REPORTPatient: MITRA GALEANO MARK N M.D. as dictated by EMILI GÓMEZ-[id number] MStatus: DEP ER EDDate of Service: 10/20/17CHIEF COMPLAINTChest pain.HISTORY OF PRESENT ILLNESSThis 52-year-old male presents to the emergency department via ambulance from [facility] with complaint of chest pain. According to EMS his report that he received wasthat the patient was complaining of some generalized pain but when asked specifically wherehis pain was he indicated the anterior aspect of his chest. This patient has a history ofschizophrenia and he was at his daytime facility when he began experiencing these symptoms.He has no history of previous heart attacks. He is displaying no evidence of shortness ofbreath. He was brought in now to be evaluated here.PAST MEDICAL HISTORYHypertension, diabetes, paranoid schizophrenia, asthma, GERD, pneumonia,hypercholesterolem ia, seizures and morbid obesity.PAST SURGICAL HISTORYUnknown.ALLERGIESHe has no drug allergies.HOME MEDICATIONSList is reviewed and includes Maxzide, saline nasal spray, Prilosec, Zestril, Glucophage,Nitrostat, Depakote, K-Dur, diltiazem, Cogentin, Lipitor, Clozaril, aspirin and Tylenol.SOCIAL HISTORYHe is single, occasionally drinks alcohol. Smokes a half-pack of cigarettes per day.Currently resides in nursing care facility in [place].VITAL SIGNSTemperature is 98.3, pulse 106, respirations 20, blood pressure is 135/89, O2 sat was 89%upon arrival via EMS on room air.PHYSICAL EXAMINATIONThis is an obese 52-year-old -[place] male. He has somewhat of an abnormal affectconsistent with his history of schizophrenia. He is able to answer questions but does notcarry on conversation easily and I am concerned about his ability to provide detailedexplanation of his symptoms currently. He does again indicate for me the anterior aspectof his chest and he admits to feeling short of breath with this. He also is complaining ofsome back pain. Heart has a regular rhythm. Rate is 106. No murmur. Lungs are clear toauscultation posteriorly. Abdomen is obese. No obvious tenderness here. Lowerextremities show slight edema. Peripheral pulses are intact x4. The patient does notappear in any distress at this time. He has received aspirin in route via EMS.DIAGNOSTIC STUDIESWorkup included a CBC and BMP. These showed no evidence of an obvious abnormality.Troponin is negative. Urine specimen is consistent with a possible urinary tractinfection. There is a small amount of leukocytes, 10-20 white blood cells, 3+ bacteria.BNP was obtained due to the size of his lower extremities but is normal at 8. Chest x-rayshowed no acute abnormality.EMERGENCY DEPARTMENT COURSEBecause of the patient's decreased ability to communicate well the patient was kept herefor a repeat delta troponin. This has continued to be negative. His HEART score rating is3, which keeps him at a low score and does not indicate a need to be admitted for continuedobservation here at this time.IMPRESSION1. Chest pain which is noncardiac.2. Urinary tract infection.PLANI am going to start him on a course of Macrobid antibiotic. He will be given that here.He has also been hungry and was fed lunch and ate well. I will continue him on anantibiotic course and he will be discharged home to his nursing care facility. Return [facility] ER if his condition is worsening. 10/23/17 0855 KARIAN NOVAK M.D.cc: KARINA NOVAK M.D.; KARINA WRIGHT D.O. << Signature on File>> Reported By: KARINA NOVAK M.D. Signed By: KARINA NOVAK M.D.Tests performed at:[address] [phone] [facility] ELECTROCARDIOGRAMon 10-21-19 18 ELECTROCARDIOGRAM [place], [place] [address]SPFSEB INFORMATION MANAGEMENTELECTROCARDIOGRAM REPORTPatient: Jesus GALEANOering: LOU PARKER EMILI-[id number] MExam Date: 10/20/17Report #: [id number]: REG ER EDSINUS TACHYCARDIAABNORMAL RHYTHM ECGNO PREVIOUS TRACINGPhysician Furnace Erector: KARINA NOVAK M.D.Ventricular Rate EK /minR-R Interval: 559 msP Wave duration: 133 msQRS duration: 109 msP-R interval: 191 msQ-T interval: 343 msQ-T interval (corrected): 410 msQ-T Dispersion: msP wave axis: 60 degQRS axis: 89 degT axis: 59 degSigned in PYRAMIS10/20/17 1713 KARINA NOVAK M.D.cc: << Signature on File>> Reported By: KARINA NOVAK M.D. Signed By: KARINA NOVAK M.D.Tests performed at:[address] [phone] [facility] BMPon 10-20-2017 Anion gap 3 molar conc 18.0 mmol/L [facility] Comment on above: Performed By: #### L 100.0010, L301.0120 ####[facility] KDCMTFMOCX[address] [place] [address] Calcium mass conc 9.1 mg/dL Normal 8.6-10.0 [facility] Comment on above: Performed By: #### L 100.0010, L301.0120 ####[facility] TTANRQBEOF053 [place] [address] Chloride molar conc 91 mmol/L Low 98-107 [facility] Comment on above: Performed By: #### L 100.0010, L301.0120 ####[facility] FKCBHLCOGC787 [place] [address] Creatinine mass conc 0.49 mg/dL Low 0.70-1.20 [facility] Comment on above: Performed By: #### L 100.0010, L301.0120 ####[facility] HTLCEAWAAO938 [place] [address] eGFR if AFR NURIS > 60 ml/min/1.73m2 Normal [facility] Comment on above: Result Comment: eGFR >= 60 Indicates normal kidney function. * eGFR IS AN ESTIMATE * (AFR NURIS = ) (non-AFR AM = NON-) MDRD calculation used in the eGFR should not be used to dose medications. For further limitations of the eGFR please refer to the Physician Website or the National Kidney Disease Education Program website (www.nkdep.nih.gov). Performed By: #### L 100.0010, L301.0120 #### - KWLNDFTARY393 [place] [address] eGFR nonAFR Nuris > 60 ml/Min/1.73m2 Normal [facility] Comment on above: Performed By: #### L 100.0010, L301.0120 ####[facility] FPHLOQYNCR040 [place] [address] Glucose mass conc 121 mg/dL High 74-106 [facility] Comment on above: Performed By: #### L 100.0010, L301.0120 ####[facility] DSVGQIRJYW403 [place] [address] Potassium molar conc 5.0 mmol/L Normal 3.5-5.0 [facility] Comment on above: Performed By: #### L 100.0010, L301.0120 ####[facility] PWZJBJHMJJ199 [place] [address] Sodium molar conc 130 mmol/L Low 135-145 [facility] Comment on above: Performed By: #### L 100.0010, L301.0120 ####[facility] BAGH[address] [place] [address] TCO2 26 mmol/L Normal 22-29 [facility] Comment on above: Performed By: #### L 100.0010, L301.0120 ####[address] [address] Urea nitrogen mass conc 10 mg/dL Normal 6-20 [facility] Comment on above: Performed By: #### L 100.0010, L301.0120 ####[address] [address] CBCon 10-20-2017 Basophils Auto #/vol (Bld) 0.10 x10(3) Normal 0.00-0.10 [facility] Comment on above: Performed By: #### L 100.0010, L301.0120 ####[address] [address] Basophils/100 WBC Auto (Bld) 0.6 % Normal 0.0-1.0 [facility] Comment on above: Performed By: #### L 100.0010, L301.0120 ####[address] [address] Eosinophils Auto #/vol (Bld) 0.10 x10(3) Normal 0.00-0.54 [facility] Comment on above: Performed By: #### L 100.0010, L301.0120 ####[address] [address] Eosinophils/100 WBC Auto (Bld) 0.6 % Normal 0.5-4.9 [facility] Comment on above: Performed By: #### L 100.0010, L301.0120 ####[address] [address] Erythrocyte distribution width Auto Ratio (RBC) 13.6 % Normal 12.7-15.3 [facility] Comment on above: Performed By: #### L 100.0010, L301.0120 ####[address] [address] Hematocrit Auto Volume Fraction (Bld) 50.5 % Normal 42.0-51.0 [facility] Comment on above: Performed By: #### L 100.0010, L301.0120 ####[facility] K[address]MBAT[address] [place] [address] Hemoglobin mass conc (Bld) 16.8 g/dL Normal 14.0-17.2 [facility] Comment on above: Performed By: #### L 100.0010, L301.0120 ####ML [facility] SE[address] [place] [address] Lymphocytes Auto #/vol (Bld) 2.40 x10(3) Normal 1.00-3.50 [facility] Comment on above: Performed By: #### L 100.0010, L301.0120 ####[address] [address] Lymphocytes/100 WBC Auto (Bld) 23.9 % Normal 16.0-48.0 [facility] Comment on above: Performed By: #### L 100.0010, L301.0120 ####[facility] ATMWNWAYST[address] [place] [address] MCH Auto Entitic mass (RBC) 29.1 pg Normal 28.8-32.2 [facility] Comment on above: Performed By: #### L 100.0010, L301.0120 ####[facility] [address]XTLXJPX[address] [place] [address] MCHC Auto mass conc (RBC) 33.3 g/dL Normal 33.0-36.0 [facility] Comment on above: Performed By: #### L 100.0010, L301.0120 ####[facility] K[address]QZ[address] [place] [address] MCV Auto Entitic volume (RBC) 87.4 fL Normal 80.0-94.0 [facility] Comment on above: Performed By: #### L 100.0010, L301.0120 ####[facility] KZ[address]NL[address] [place] [address] Monocytes Auto #/vol (Bld) 1.00 x10(3) High 0.30-0.80 [facility] Comment on above: Performed By: #### L 100.0010, L301.0120 ####ML - QRLGKRAITS[address] [place] [address] Monocytes/100 WBC Auto (Bld) 10.0 % Normal 4.3-11.2 [facility] Comment on above: Performed By: #### L 100.0010, L301.0120 ####ML - TULONQNQJN[address] [place] [address] Neutrophils Auto #/vol (Bld) 6.60 x10(3) High 1.40-6.50 [facility] Comment on above: Performed By: #### L 100.0010, L301.0120 ####ML - ZPAAEJDTOF[address] [place] [address] Neutrophils/100 WBC Auto (Bld) 64.9 % Normal 45.0-73.0 [facility] Comment on above: Performed By: #### L 100.0010, L301.0120 ####ML [facility] XTNBE[address] [place] [address] Platelet mean volume Auto Entitic volume (Bld) 7.4 fL Normal 7.4-9.2 [facility] Comment on above: Performed By: #### L 100.0010, L301.0120 ####ML [facility] TZSDCMEQ[address] [place] [address] Platelets Auto #/vol (Bld) 213 X10(3) Normal 150-450 [facility] Comment on above: Performed By: #### L 100.0010, L301.0120 ####ML [facility] U[address]PWX[address] [place] [address] RBC Auto #/vol (Bld) 5.78 x10(6) High 4.80-5.50 [facility] Comment on above: Performed By: #### L 100.0010, L301.0120 ####ML [facility] MPCINCVBXH[address] [place] [address] WBC Auto #/vol (Bld) 10.1 x10(3) High 4.5-10.0 [facility] Comment on above: Performed By: #### L 100.0010, L301.0120 ####[facility] - [facility] PGWYODOOLI[address] [place] [address] CHEST-ONE VIEW ONLY - CXR1on 10-20-2017 CHEST-ONE VIEW ONLY - CXR1 [address] [address]Kgne: Aleisha GALEANO: LOU PARKER-CDOB: [birth year] Age: 52 Sex: MAcct: [id number] Loc: EDExam Date: 10/20/17 Status: REG ERRadiology No.: [id number] Number: [id number] # [id number] RAD / CHEST-ONE VIEW ONLY - [id number]: Portable AP upright chestCLINICAL INDICATION: Chest pain.COMPARISON: 08/26/2017.FINDINGS: Elevation RIGHT hemidiaphragm observed. There is no lobarconsolidation or pneumothorax. Cardiac and pulmonary contours are withinnormal range.IMPRESSION:1. No acute chest process.2. Stable elevation of the RIGHT hemidiaphragm.Professional interpretation provided by [facility]66.Thank you for this referral.< >Reported By: EFREN ANDREWS D.O.Signed In NovaPro By: EFREN ANDREWS D.O. << Signature on File>> Reported By: EFREN ANDREWS D.O. Signed By: EFREN ANDREWS D.O.Tests performed at:[address] [phone] [facility] CPKon 10-20-2017 CPK 339 U/L High 39-308 [facility] Comment on above: Performed By: #### L 100.0010, L301.0120 ####[facility] RTGWFWUSAR513 [place] [address] PRO-BNPon 10-20-2017 Natriuretic peptide B mass conc (Bld) 8 pg/mL [facility] Comment on above: Result Comment: HF U NLIKELY: NT-PRO BNP <300 pg/mLHF LIKELY: NT-PRO BNP >450 pg/mL (AGE <50) NT-PRO BNP >900 pg/mL (AGE 50-75) NT-PRO BNP >1800 pg/mL (AGE >75)HF VERY LIKELY: NT-PRO BNP >10,000 pg/mLSOURCE: YAMILE ALGORITHM FOR PRO-BNP; CRITICAL PATHWAYS INCARDIOLOGY VOLUME 3, NUMBER 4; FEBRUARY 2004 Performed By: #### L 100.0010, L301.0120 ####ML - YQSDMFZRKW728 [place] [address] TROPONIN Ton 10-20-2017 Troponin T.cardiac mass conc ug/L Normal 0-0.010 [facility] Comment on above: Performed By: #### L 100.0010, L301.0120 ####ML - TNMZRBUVCG955 [place] [address] Troponin T.cardiac mass conc ug/L Normal 0-0.010 [facility] Comment on above: Performed By: #### L 100.0010, L301.0120 ####ML - VTKDNJTIXB[address] [place] [address] URINALYSISon 10-20-2017 Bilirubin Ql (U) Negative Normal NEGATIVE [facility] Comment on above: Order Comment: Urine Specimen Source+ CLEAN CATCH Performed By: #### L 100.0010, L301.0120 ####[facility] - [facility] ZMLOGSROHZ068 [place] [address] Color Nom (U) YELLOW Normal YELLOW [facility] Comment on above: Order Comment: Urine Specimen Source+ CLEAN CATCH Performed By: #### L 100.0010, L301.0120 ####ML - TZNJIPDHXL107 [place] [address] Glucose Ql (U) Negative Normal NEGATIVE [facility] Comment on above: Order Comment: Urine Specimen Source+ CLEAN CATCH Performed By: #### L 100.0010, L301.0120 ####ML - [facility] KYDZQCDCPM464 [place] [address] Hemoglobin Test strip Ql (U) Negative Normal NEGATIVE [facility] Comment on above: Order Comment: Urine Specimen Source+ CLEAN CATCH Performed By: #### L 100.0010, L301.0120 ####ML - [facility] CCFFVLDZYS[address] [place] [address] Leukocyte esterase Test strip Ql (U) SMALL Normal NEGATIVE [facility] Comment on above: Order Comment: Urine Specimen Source+ CLEAN CATCH Performed By: #### L 100.0010, L301.0120 ####ML - [facility] MAOPHBMXJP9[address] [place] [address] Nitrite Test strip Ql (U) Negative Normal NEGATIVE [facility] Comment on above: Order Comment: Urine Specimen Source+ CLEAN CATCH Performed By: #### L 100.0010, L301.0120 ####ML - [facility] [id number] [place] [address] pH Test strip (U) 7.0 [pH] Normal 5.0-8.0 [facility] Comment on above: Order Comment: Urine Specimen Source+ CLEAN CATCH Performed By: #### L 100.0010, L301.0120 ####ML - [id number] [place] [address] Protein Test strip Ql (U) Negative Normal NEGATIVE [facility] Comment on above: Order Comment: Urine Specimen Source+ CLEAN CATCH Performed By: #### L 100.0010, L301.0120 ####[facility] - [facility] BXPZGZRENQ[address] [place] [address] URINE APPEARANC CLOUDY Normal CLEAR [facility] Comment on above: Order Comment: Urine Specimen Source+ CLEAN CATCH Performed By: #### L 100.0010, L301.0120 ####ML - [facility] GRYZHAPPZH[address] [place] [address] URINE KETONE Negative Normal NEGATIVE [facility] Comment on above: Order Comment: Urine Specimen Source+ CLEAN CATCH Performed By: #### L 100.0010, L301.0120 ####ML - [facility] MOKABWITUL[address] [place] [address] URINE SPECIFIC 1.020 Normal 1.001-1.03 5 [facility] Comment on above: Order Comment: Urine Specimen Source+ CLEAN CATCH Performed By: #### L 100.0010, L301.0120 ####ML - [facility] KLVVLYQVRW[address] [place] [address] URINE UROBILINO 1.0 EU/DL Normal 0.2-1.0 [facility] Comment on above: Order Comment: Urine Specimen Source+ CLEAN CATCH Performed By: #### L 100.0010, L301.0120 ####ML - [id number] [place] [address] URINE MICROSCOPon 10-20-2017 Bacteria LM.HPF #/area (Urine sed) 3+ Normal NEGATIVE [facility] Comment on above: Order Comment: Urine Specimen Source+ CLEAN CATCH Performed By: #### L 100.0010, L301.0120 ####ML - [facility] LESWMFTETH[address] [place] [address] RBC Test strip #/vol (U) 0 /uL Normal 0-2 [facility] Comment on above: Order Comment: Urine Specimen Source+ CLEAN CATCH Performed By: #### L 100.0010, L301.0120 ####ML - EFYSNRQSHP[address] [place] [address] SQUAMOUS OCC Normal NEGATIVE [facility] Comment on above: Order Comment: Urine Specimen Source+ CLEAN CATCH Performed By: #### L 100.0010, L301.0120 ####ML - [id number] [place] [address] WBC #/vol (U) 10-20 Normal 0-5 [facility] Comment on above: Order Comment: Urine Specimen Source+ CLEAN CATCH Performed By: #### L 100.0010, L301.0120 ####ML - [id number] [place] [address] VPAFREEon 08-31-2017 VPAFREE SEE SEPARATE REPORT [facility] Comment on above: Order Comment: TO BE COLLECTED LATERTO BE COLLECTED LATER Performed By: #### L 100.0010, L301.0120 ####ML - [facility] [id number] [place] [address] CBCon 08-28-2017 Basophils Auto #/vol (Bld) 0.00 x10(3) Normal 0.00-0.10 [facility] Comment on above: Performed By: #### L 100.0010, L301.0120 ####ML - [facility] PAKGNQJPXI[address] [place] [address] Basophils/100 WBC Auto (Bld) 0.3 % Normal 0.0-1.0 [facility] Comment on above: Performed By: #### L 100.0010, L301.0120 ####[address] [address] Eosinophils Auto #/vol (Bld) 0.10 x10(3) Normal 0.00-0.54 [facility] Comment on above: Performed By: #### L 100.0010, L301.0120 ####[address] [address] Eosinophils/100 WBC Auto (Bld) 1.7 % Normal 0.5-4.9 [facility] Comment on above: Performed By: #### L 100.0010, L301.0120 ####[address] [address] Erythrocyte distribution width Auto Ratio (RBC) 13.7 % Normal 12.7-15.3 [facility] Comment on above: Performed By: #### L 100.0010, L301.0120 ####[address] [address] Hematocrit Auto Volume Fraction (Bld) 48.0 % Normal 42.0-51.0 [facility] Comment on above: Performed By: #### L 100.0010, L301.0120 ####[address] [address] Hemoglobin mass conc (Bld) 15.9 g/dL Normal 14.0-17.2 [facility] Comment on above: Performed By: #### L 100.0010, L301.0120 ####[address] [address] Lymphocytes Auto #/vol (Bld) 3.80 x10(3) High 1.00-3.50 [facility] Comment on above: Performed By: #### L 100.0010, L301.0120 ####[address] [address] Lymphocytes/100 WBC Auto (Bld) 51.7 % High 16.0-48.0 [facility] Comment on above: Performed By: #### L 100.0010, L301.0120 ####[facility] OESQ[address]INUM[address] [place] [address] MCH Auto Entitic mass (RBC) 29.5 pg Normal 28.8-32.2 [facility] Comment on above: Performed By: #### L 100.0010, L301.0120 ####ML [facility] [id number] [place] [address] MCHC Auto mass conc (RBC) 33.2 g/dL Normal 33.0-36.0 [facility] Comment on above: Performed By: #### L 100.0010, L301.0120 ####[address] [address] MCV Auto Entitic volume (RBC) 89.1 fL Normal 80.0-94.0 [facility] Comment on above: Performed By: #### L 100.0010, L301.0120 ####[address] [address] Monocytes Auto #/vol (Bld) 0.70 x10(3) Normal 0.30-0.80 [facility] Comment on above: Performed By: #### L 100.0010, L301.0120 ####[address] [address] Monocytes/100 WBC Auto (Bld) 9.7 % Normal 4.3-11.2 [facility] Comment on above: Performed By: #### L 100.0010, L301.0120 ####[facility] [address] [place] [address] Neutrophils Auto #/vol (Bld) 2.70 x10(3) Normal 1.40-6.50 [facility] Comment on above: Performed By: #### L 100.0010, L301.0120 ####[facility] IA[address] [place] [address] 61263 Neutrophils/100 WBC Auto (Bld) 36.6 % Low 45.0-73.0 [facility] Comment on above: Performed By: #### L 100.0010, L301.0120 ####ML - RXKETOZINZ[address] [place] [address] 97852 Platelet mean volume Auto Entitic volume (Bld) 7.9 fL Normal 7.4-9.2 [facility] Comment on above: Performed By: #### L 100.0010, L301.0120 ####ML [facility] ZLOMZQOTLV[address] [place] [address] 59374 Platelets Auto #/vol (Bld) 187 X10(3) Normal 150-450 [facility] Comment on above: Performed By: #### L 100.0010, L301.0120 ####ML - [facility] [place] [address] 61006 RBC Auto #/vol (Bld) 5.39 x10(6) Normal 4.80-5.50 [facility] [place] Comment on above: Performed By: #### L 100.0010, L301.0120 ####ML - OQYGKBHUTL[address] [place] [address] 58148 WBC Auto #/vol (Bld) 7.3 x10(3) Normal 4.5-10.0 [facility] Comment on above: Performed By: #### L 100.0010, L301.0120 ####[facility] [place] [address] 76053 CLINICAL RESUMEon 08-28-2017 CLINICAL RESUME [place] [address]HKJJBS INFORMATION MANAGEMENTCLINICAL RESUMEPatient: SHERWIN GALEANO VAMS I M.D.[id number] MStatus: DIS IN [facility] 2229-BDate of Admission: 08/25/17 Date of Discharge: 08/28/17PRIMARY DIAGNOSES1. Atypical chest pain.2. The patient had a positive stress test which showed findings suspicious for stressinduced ischemia involving the inferior wall and a small part of the apex as per cardiologyon the stress test results. The patient refused to get cardiac catheterization and referredto be on medical management at this point.3. Bilateral ground glass opacities, ruled out pneumonia. The patient has no fever. Nowhite count. No cough or sputum production. Antibiotics were discontinued.4. Mildly lactic acid elevation, resolved.5. Mild hyponatremia, resolved.6. Hyperlipidemia.7. Noninsulin dependent diabetes mellitus.8. Chronic seizures.9. Tobacco abuse.SERVICEAdmitted to hospitalist's service.CONSULTSCardiology consult, Dr. Gandhi.DIAGNOSTIC TESTThe patient got a stress test done, Lexiscan stress test, which showed stress inducedischemia involving the inferior wall and small part of the apex.PHYSICAL EXAMINATIONOn the day of discharge, the patient's vitals were temperature 98.2, heart rate is 99,respiratory rate is 20, blood pressure is 118/84, saturating 91% on room air. Generalexamination: The patient is alert and oriented x3, in no distress. Neck is supple. HEENT isnormocephalic, atraumatic. Pupils are equal and reactive to light. Heart: S1, S2 heard. Nomurmurs, gallops or regurgitation. Lungs are clear to auscultation bilaterally. Nowheezing, rales, rhonchi. The chest wall: The pain is reproducible on deep palpation.Abdomen is nontender, nondistended, nontender. Bowel sounds are present. Extremities: Thereis no cyanosis, clubbing or edema. Neurologically, no focal deficits.BRIEF HOSPITAL COURSEMr. Galeano is a 51-year-old male who came to the emergency room complaining of abdominalpain which was radiating to his chest and also to the back. There was concern fordissection. The patient got a CTA of the abdomen and CTA of the chest in the emergency roomand showed no aortic dissection, but as he has risk factors we are admitting to rule outacute coronary syndrome. Still the patient during the examination had some reproduciblepain, but given his risk factors we admitted him and did the cardiac workup and got thestress test. It came back positive as I mentioned above, but the patient absolutelyrefused. Initially he accepted to one of the sales vice president and the following day that istoday the other sales vice president, Dr. Sykes, went and examined the patient and he absolutelyrefused to get the cardiac catheterization and decided to be on medical therapy and willcontinue to follow with the sales vice president as an outpatient. Currently, the patient is chestpain free. Denies any shortness of breath or palpitations. Also during the workup foundthat on the x-ray he had some bilateral ground glass opacities, but initially he gotantibiotics for a couple of days, but as the cultures were negative and he has no sputumproduction or cough or fevers or white count we discontinued the antibiotics. Urine alsowas growing gram positive cocci and I spoke to the cardiopulmonary technician and eeg tech and it wasAerococcus viridians and it is usually not more katharine, no need to be treated. The patienton top of it, is asymptomatic. As I got clearance from the sales vice president and vitals arestable and labs are at baseline, I went ahead and [facility].DISCHARGE INSTRUCTIONS1. Diet is cardiac diet.2. Activity as tolerated.3. Followup appointment with the primary care physician within 1 week.4. Followup appointment with Dr. Gandhi in 1 to 2 weeks.DISCHARGE MEDICATIONS ARE1. Aspirin 81 q. daily.2. Tylenol.3. Triamterene/hydrochlorothiaz olivia.4. Omeprazole.5. Lisinopril.6. Metformin.7. Nitroglycerin.8. Depakote.9. Potassium supplements.10. Diltiazem.11. Cogentin.12. Atorvastatin.13. Klonopin.DISCHARGE TIMESpent was about 35 minutes. 09/12/17 1712 DAVID HANSON M.D.cc: DAVID VAUGHN M.D. << Signature on File>> Reported By: DAVID VAUGHN M.D. Signed By: DAVID VAUGHN M.D.Tests performed at:[address] [phone] [facility] EMERGENCY DEPARTMENT REPORTo n 08-28-2017 EMERGENCY DEPARTMENT REPORT [place], [place] [address]RTYFTQ INFORMATION MANAGEMENTEMERCHI [facility] DE[facility] REPORTPatient: PHYLLIS GALEANO C HRISTOPHER R D.O.[id number] MStatus: DIS IN [facility] 9-BDate of Service: 08/25/17ADDENDUMCHIEF COMPLAINTChest pain.DIAGNOSTIC STUDIESDiagnostic studies included a CT angio of the chest, abdomen and pelvis. The CT chestshowed bilateral ground-glass opacities with possible developing pneumonia. Kidneysdemonstrated bilateral minimal adjacent fluid and inflammatory change. The urine wasordered and is pending. White count is normal at 9.2 with hemoglobin of 16.8. Basicmetabolic panel shows glucose of 146, BUN of 9 and creatinine was 0.72, sodium of 131.Troponin was negative. The patient's lactate was 2.6.EMERGENCY DEPARTMENT COURSEThe patient was seen and evaluated. I ordered blood cultures, a urine and urine culturewhich are pending at this time. The patient will be started on Levaquin. I spoke with who agreed to admit the patient to stepdown observation for chest pain rule out.The patient did have an episode of hypotension which I think is likely related to thenitroglycerin. However, he was also tachycardic and the CT scan findings are concerningfor the possibility of early developing pneumonia. He will be placed on Levaquin andadmitted for chest pain with rule out, likely cycle the enzymesIMPRESSIONPneumonia as above.PLANPlan as above. Condition on admission is stable.ADMIT 08/31/17 2347 BRIAN HAMM D.O.cc: BRIAN HAMM D.O. << Signature on File>> Reported By: BRIAN HAMM D.O. Signed By: BRIAN HAMM D.O.Tests performed at:[address] [phone] [facility] EMERGENCY DEPARTMENT REPORT [place], [place] [address]LCOGTB INFORMATION MANAGEMENTEMERGENCY DEPARTMENT REPORTPatient: PHYLLIS GALEANO C HRISTOPHER R D.O.[id number] MStatus: DIS IN [facility] 9-BDate of Service: 08/25/17Chief complaintChest and abdominal pain.HISTORY OF PRESENT ILLNESSThis is a 51-year-old male who comes in with sharp chest pain associated with abdominalpain in the upper mid abdomen. The patient states he had this a couple years ago and wastold he had a heart attack at another hospital. The patient does not see a sales vice president.Does have a family physician currently at [facility] [place]. Has a history of schizophrenia. Thepatient denies any improvement after nitroglycerin and aspirin was provided by the squad.He was given 325 mg of aspirin. He complains of nausea, shortness of breath,lightheadedness, dizziness and chest pain, not worse with movement or inspiration. Thepatient states the pain kind of goes up to the back of his head as well. Nothing elseseems to make it better or worse. Comes in for further evaluation.Review of systemsPer HPI. All systems reviewed and negative.Past medical historyHypertension, diabetes, asthma, obstructive sleep apnea, gastroesophageal reflux disease,hyperlipidemia and question of [place].PAST SURGICAL HISTORYThe patient does have a surgical history of on his leg.SOCIAL HISTORYHe is single. Smokes less than half-pack per day.ALLERGIESNo known drug allergies.PHYSICAL EXAMINATIONOn exam the patient's BP was 87/64. When he initially arrived by squad, his blood pressureinitially was 101 systolic. His temperature was 98.3, pulse 111, respirations 20, SPO2 is93%. This is a 51-year-old male who is A and O three, GCS 15, in no apparent distress. Heis asking how to turn on the TV. Head is atraumatic, normocephalic. Mucous membranes aremoist. Neck is supple, no JVD. Respirations are clear to auscultation bilaterally. Heartis a regular rate and rhythm without murmurs, gallops or rubs. Abdomen is soft withoutfocal tenderness to palpation. He is nondistended. The patient is obese. The bowel soundsare present throughout. He is moving all extremities. Skin is dry, intact. He is alert,cooperative, equal femoral and radial pulses.IMPRESSION 08/31/17 2347 BRIAN HAMM D.O.cc: BRIAN HAMM D.O. << Signature on File>> Reported By: BRIAN HAMM D.O. Signed By: BRIAN HAMM D.O.Tests performed at:[address] [phone] [facility] GLUCOSE FSon 08-28-2017 Glucose mass conc 104 mg/dL Normal 70-110 [facility] Comment on above: Performed By: #### L 100.0010, L301.0120 ####ML - LKPIYAQJVY[address] [place] [address] 52468 Glucose mass conc 105 mg/dL Normal 70-110 [facility] Comment on above: Performed By: #### L 100.0010, L301.0120 ####ML - EXOEUCLSNU[address] [place] [address] 83693 BMPon 08-27-2017 Anion gap 3 molar conc 12.5 mmol/L Low 15-22 [facility] Comment on above: Performed By: #### L 200.1602, L200.1642 ####ML - FUPWCFIVJH227 [place] [address] Calcium mass conc 9.1 mg/dL Normal 8.6-10.0 [facility] Comment on above: Performed By: #### L 200.1602, L200.1642 ####ML - FDRNYPCKRB370 [place] [address] Chloride molar conc 93 mmol/L Low 98-107 [facility] Comment on above: Performed By: #### L 200.1602, L200.1642 ####ML - PPOEYIYFJN656 [place] [address] Creatinine mass conc 0.72 mg/dL Normal 0.70-1.20 [facility] Comment on above: Performed By: #### L 200.1602, L200.1642 ####[facility] SDADSXJYUL435 [place] [address] eGFR if AFR NURIS > 60 ml/min/1.73m2 Normal [facility] Comment on above: Result Comment: eGFR >= 60 Indicates normal kidney function. * eGFR IS AN ESTIMATE * (AFR NURIS = ) (non-AFR AM = NON-) MDRD calculation used in the eGFR should not be used to dose medications. For further limitations of the eGFR please refer to the Physician Website or the National Kidney Disease Education Program website (www.nkdep.nih.gov). Performed By: #### L 200.1602, L2 ####[facility] [place] [address] eGFR nonAFR Nuris > 60 ml/Min/1.73m2 Normal [facility] Comment on above: Performed By: #### L 200.1602, L2 ####[facility] MUSOVLVTYN[address] [place] [address] 12407 Glucose mass conc 106 mg/dL Normal 74-106 [facility] Comment on above: Performed By: #### L 200.1602, L2 ####[facility] PZXJFTUGYQ962 [place] [address] Potassium molar conc 4.5 mmol/L Normal 3.5-5.0 [facility] Comment on above: Performed By: #### L 200.1602, L2 ####[facility] ANRRZLZHAG158 [place] [address] Sodium molar conc 136 mmol/L Normal 135-145 [facility] Comment on above: Performed By: #### L 200.1602, L2002 ####[facility] BIAYLWDAJV640 [place] [address] TCO2 35 mmol/L High 22-29 [facility] Comment on above: Performed By: #### L 200.1602, L200.1642 ####ML - DLIOTGWDDG683 [place] [address] Urea nitrogen mass conc 9 mg/dL Normal 6-20 [facility] Comment on above: Performed By: #### L 200.1602, L200.1642 ####ML [facility] UKOHOBJYZD[address] [place] [address] 85196 CBCon 08-27-2017 Basophils Auto #/vol (Bld) 0.00 x10(3) Normal 0.00-0.10 [facility] Comment on above: Performed By: #### L 200.1602, L200.1642 ####ML [facility] OWARWRXGUT[address] [place] [address] 89137 Basophils/100 WBC Auto (Bld) 0.6 % Normal 0.0-1.0 [facility] Comment on above: Performed By: #### L 200.1602, L200.2 ####ML [facility] ULYRMBWV[address] [place] [address] 78622 Eosinophils Auto #/vol (Bld) 0.10 x10(3) Normal 0.00-0.54 [facility] Comment on above: Performed By: #### L 200.1602, L200.1642 ####ML [facility] FJUFKAJTAV[address] [place] [address] 76853 Eosinophils/100 WBC Auto (Bld) 1.8 % Normal 0.5-4.9 [facility] Comment on above: Performed By: #### L 200.1602, L200.1642 ####ML [facility] WMTQ[address]IBGS[address] [place] [address] 61869 Erythrocyte distribution width Auto Ratio (RBC) 14.0 % Normal 12.7-15.3 [facility] Comment on above: Performed By: #### L 200.1602, L200.1642 ####ML [facility] GLYNOEBGAQ[address] [place] [address] 03813 Hematocrit Auto Volume Fraction (Bld) 51.4 % High 42.0-51.0 [facility] Comment on above: Performed By: #### L 200.1602, L2 ####[facility] QHYPA[address] [place] [address] 98863 Hemoglobin mass conc (Bld) 17.3 g/dL High 14.0-17.2 [facility] Comment on above: Performed By: #### L 200.1602, L2 ####[address] [address] Lymphocytes Auto #/vol (Bld) 3.30 x10(3) Normal 1.00-3.50 [facility] Comment on above: Performed By: #### L 200.160, L2 ####[address] [address] Lymphocytes/100 WBC Auto (Bld) 47.6 % Normal 16.0-48.0 [facility] Comment on above: Performed By: #### L 200.160, L2 ####[address] [address] MCH Auto Entitic mass (RBC) 29.6 pg Normal 28.8-32.2 [facility] Comment on above: Performed By: #### L 200.160, L2 ####ML - [address] [address] MCHC Auto mass conc (RBC) 33.6 g/dL Normal 33.0-36.0 [facility] Comment on above: Performed By: #### L 200.160, L2 ####[address] [address] MCV Auto Entitic volume (RBC) 88.3 fL Normal 80.0-94.0 [facility] Comment on above: Performed By: #### L 200.160, L2 ####[address] [address] Monocytes Auto #/vol (Bld) 0.70 x10(3) Normal 0.30-0.80 [facility] Comment on above: Performed By: #### L 200.1602, L2 ####[facility] [address] [place] [address] Monocytes/100 WBC Auto (Bld) 9.5 % Normal 4.3-11.2 [facility] Comment on above: Performed By: #### L 200.1602, L2 ####ML [facility] GZSOVUJURF[address] [place] [address] 18998 Neutrophils Auto #/vol (Bld) 2.80 x10(3) Normal 1.40-6.50 [facility] Comment on above: Performed By: #### L 200.1602, L2 ####[facility] RT[address]ZY[address]TGQ[address] [place] [address] 10947 Neutrophils/100 WBC Auto (Bld) 40.5 % Low 45.0-73.0 [facility] Comment on above: Performed By: #### L 200.160, ####[facility] TYJSKR[address] [place] [address] 50609 Platelet mean volume Auto Entitic volume (Bld) 7.8 fL Normal 7.4-9.2 [facility] Comment on above: Performed By: #### L 200.160, ####[facility] TOOWPJVUAK[address] [place] [address] 60079 Platelets Auto #/vol (Bld) 190 X10(3) Normal 150-450 [facility] Comment on above: Performed By: #### L 200.1602, ####ML [facility] KOXBLWRADC[address] [place] [address] 69124 RBC Auto #/vol (Bld) 5.82 x10(6) High 4.80-5.50 [facility] [place] Comment on above: Performed By: #### L 200.1602, L2 ####ML [facility] CONJMDUQIO[address] [place] [address] 21744 WBC Auto #/vol (Bld) 6.9 x10(3) Normal 4.5-10.0 [facility] Comment on above: Performed By: #### L 200.1602, L2 ####ML - [facility] QMMGJOYZLQ642 [place] [address] GLUCOSE FSon 08-27-2017 Glucose mass conc 128 mg/dL High 70110 [facility] Comment on above: Performed By: #### L 200.1602, L200.2 ####ML - [facility] MHJGZHDTTY607 [place] [address] Glucose mass conc 119 mg/dL High 70110 [facility] Comment on above: Performed By: #### L 200.1602, L200.1641 ####ML - [facility] BIYWPCCYML351 [place] [address] Glucose mass conc 124 mg/dL High 70110 [facility] Comment on above: Performed By: #### L 200.1602, L2002 ####ML - [facility] CXPHQFOHJV223 [place] [address] NM RENO SPECT MULTI [id number] 08-27-2017 NM [facility] SPECT MULTI [address] [address]Oeky: Aleisha GALEANO: DAVID VAUGHN M.D.: [birth year] Age: 51 Sex: MAcct: [id number] Loc: [facility] Date: 08/27/17 Status: ADM INRadiology No.: [id number] Number: [id number] # Type/[id number] NM / NM RENO SPECT MULTI [id number] Myocardial Perfusion Imaging with Lexiscan StressClinical Statement: Chest painTechnique:Radiopharmaceu tical (rest): Tc-99m sestamibi Dose: 35 mCiResting scan performed on 08/26/2017Lexiscan dose: 0.4mg mgRadiopharmaceutical (stress): Tc-99m sestamibi Dose: 33 mCiStress scan performed on 08/25/2017SPECT acquisition and processingReconstruction and reorientation of SPECT images into short axis, vertical andlong axis planesQuantitative LVEF assessmentComparison study: None availableReport: Resting tomographic images demonstrate normal left ventricular chambersize and normal left ventricular perfusion. Stress images demonstratemoderately diminished activity in the proximal two thirds of the inferiorwall. There is also slight decreased activity of the left ventricular apex.This is suspicious for stress-induced ischemia. Gated images show slightinferior hypokinesis was otherwise normal left ventricular wall motion andsystolic wall thickening. The left ventricular ejection fraction is 53 percent.Impression: Findings are suspicious for stress-induced ischemia involving theinferior wall and a small part of the apex.Professional interpretation provided by [facility] [address].Thank you for this referral.< >Reported By: LOU TRIPATHI M.D.Signed In NovaPro By: LOU TRIPATHI M.D. << Signature on File>> Reported By: LOU TRIPATHI M.D. Signed By: LOU TRIPATHI M.D.Tests performed at:[address] [phone] [facility] NUCLEAR STRESS TEST(Wt < 440 #)on 08-27-2017 NUCLEAR STRESS TEST(Wt < 440#) [place], [place] [address]GYCTBV INFORMATION MANAGEMENTCARDIOLOGY REPORTPatient: YESICA GALEANO WAYNE D D.O.[id number] MStatus: ADM IN [facility] 2229-BExam # Type/[id number] CARD / NUCLEAR STRESS TEST(Wt < 440#)STRESS TEST REPORTDATE OF WOLJUYW7208/27/2017PROTOCOLLex iscan stress test 0.4 mg infused over 10 seconds.HEMODYNAMICSBlood pressure 140/96, heart rate 94. Neela blood pressure 128/74, neela heart rate 105.EKGNormal sinus rhythm. No ST T wave changes appreciated.MEDICATIONSMedic al therapy is Cardizem, Clozaril, Cogentin, Depakote, Lipitor, Vasotec.CONCLUSIONThe patient with Lexiscan stress test. EKG was normal. Hemodynamic response was normal.We will await nuclear report. 08/28/17 0545 LOIS GANDHI D.O.cc: DAVID VAUGHN M.D. << Signature on File>> Reported By: LOIS GANDHI D.O. Signed By: LOIS GANDHI D.O.Tests performed at:[address] [phone] [facility] ELECTROCARDIOGRAMon 08-27-19 18 ELECTROCARDIOGRAM [place], [place] [address]RSIRGJ INFORMATION MANAGEMENTELECTROCARDIOGRAM REPORTPatient: Jesus GALEANOering: DAVID VAUGHN M.D.[id number] MExam Date: 08/26/17Report #: [id number]: ADM IN [facility] 2229-BSINUS TACHYCARDIABORDERLINE RIGHT AXIS DEVIATIONMODERATE INTRAVENTRICULAR CONDUCTION DELAYABNORMAL RHYTHM ECGPREVIOUS TRACIN08/25/17 10.36Physician Furnace Erector: ANTHONY BUNCH M.D.Ventricular Rate EK /minR-R Interval: 581 msP Wave duration: 129 msQRS duration: 113 msP-R interval: 189 msQ-T interval: 358 msQ-T interval (corrected): 422 msQ-T Dispersion: msP wave axis: 69 degQRS axis: 97 degT axis: 70 degSigned in PYRAMIS08/26/17 0836 ANTHONY BUNCH M.D.cc: << Signature on File>> Reported By: ANTHONY BUNCH M.D. Signed By: ANTHONY BUNCH M.D.Tests performed at:[address] [phone] [facility] BMPon 08-26-2017 Anion gap 3 molar conc 13.6 mmol/L Low [facility] Comment on above: Performed By: #### L 200.1602, L200.1642 ####ML - [facility] OVPRENUBQI065 [place] [address] Calcium mass conc 8.5 mg/dL Low 8.6-10.0 [facility] Comment on above: Performed By: #### L 200.1602, L200.1642 #### - XNAIDBWVKI[address] [place] [address] Chloride molar conc 92 mmol/L Low 98-107 [facility] Comment on above: Performed By: #### L 200.1602, L2.1641 #### - BNUMNCBGWD[address] [place] [address] Creatinine mass conc 0.57 mg/dL Low 0.70-1.20 [facility] Comment on above: Performed By: #### L 200.1602, L2 #### - JAPIEKXRNJ591 [place] [address] eGFR if AFR NURIS > 60 ml/min/1.73m2 Normal [facility] Comment on above: Result Comment: eGFR >= 60 Indicates normal kidney function. * eGFR IS AN ESTIMATE * (AFR NURIS = ) (non-AFR AM = NON-) MDRD calculation used in the eGFR should not be used to dose medications. For further limitations of the eGFR please refer to the Physician Website or the National Kidney Disease Education Program website (www.nkdep.nih.gov). Performed By: #### L 200.1602, L2 ####[facility] SOBQKBPTCA264 [place] [address] eGFR nonAFR Nuris > 60 ml/Min/1.73m2 Normal [facility] Comment on above: Performed By: #### L 200.1602, L2.1641 ####[facility] RBBFVGUABU445 [place] [address] Glucose mass conc 112 mg/dL High 74-106 [facility] Comment on above: Performed By: #### L 200.1602, L2.1641 ####[facility] UGEOBOFBCJ771 [place] [address] Potassium molar conc 4.6 mmol/L Normal 3.5-5.0 [facility] Comment on above: Performed By: #### L 200.1602, L200.1642 ####[facility] ZGYFRRESY[address] [place] [address] Sodium molar conc 132 mmol/L Low 135-145 [facility] Comment on above: Performed By: #### L 200.1602, L200.1642 ####ML - ZEXENTHYYQ[address] [place] [address] TCO2 31 mmol/L High 22-29 [facility] Comment on above: Performed By: #### L 200.1602, L200.1642 ####[facility] [address] [place] [address] Urea nitrogen mass conc 9 mg/dL Normal 6-20 [facility] Comment on above: Performed By: #### L 200.1602, L200.1642 ####[facility] W[address]KQCDC[address] [place] [address] 60592 CBCon 08-26-2017 Basophils Auto #/vol (Bld) 0.00 x10(3) Normal 0.00-0.10 [facility] Comment on above: Performed By: #### L 100.0440 ####[address] [address] Basophils/100 WBC Auto (Bld) 0.7 % Normal 0.0-1.0 [facility] Comment on above: Performed By: #### L 100.0440 ####[facility] [address] [place] [address] 260[address] Eosinophils Auto #/vol (Bld) 0.10 x10(3) Normal 0.00-0.54 [facility] Comment on above: Performed By: #### L 100.0440 ####[facility] TAG[address] [place] [address] 61899 Eosinophils/100 WBC Auto (Bld) 1.9 % Normal 0.5-4.9 [facility] Comment on above: Performed By: #### L 100.0440 ####[facility] RBLABSU[address] [place] [address]146 Erythrocyte distribution width Auto Ratio (RBC) 13.6 % Normal 12.7-15.3 [facility] Comment on above: Performed By: #### L 100.0440 ####[address] [address] Hematocrit Auto Volume Fraction (Bld) 48.2 % Normal 42.0-51.0 [facility] Comment on above: Performed By: #### L 100.0440 ####[address] [address] Hemoglobin mass conc (Bld) 16.2 g/dL Normal 14.0-17.2 [facility] Comment on above: Performed By: #### L 100.0440 ####[address] [address] Lymphocytes Auto #/vol (Bld) 3.40 x10(3) Normal 1.00-3.50 [facility] Comment on above: Performed By: #### L 100.0440 ####[address] [address] Lymphocytes/100 WBC Auto (Bld) 47.9 % Normal 16.0-48.0 [facility] Comment on above: Performed By: #### L 100.0440 ####[address] [address] MCH Auto Entitic mass (RBC) 29.6 pg Normal 28.8-32.2 [facility] Comment on above: Performed By: #### L 100.0440 ####[address] [address] MCHC Auto mass conc (RBC) 33.6 g/dL Normal 33.0-36.0 [facility] Comment on above: Performed By: #### L 100.0440 ####[address] [address] MCV Auto Entitic volume (RBC) 88.3 fL Normal 80.0-94.0 [facility] Comment on above: Performed By: #### L 100.0440 ####[address] [place] [address] Monocytes Auto #/vol (Bld) 0.70 x10(3) Normal 0.30-0.80 [facility] Comment on above: Performed By: #### L 100.0440 ####ML [address] [address] Monocytes/100 WBC Auto (Bld) 10.4 % Normal 4.3-11.2 [facility] Comment on above: Performed By: #### L 100.0440 ####ML [address] [address] Neutrophils Auto #/vol (Bld) 2.80 x10(3) Normal 1.40-6.50 [facility] Comment on above: Performed By: #### L 100.0440 ####ML - [address] [address] Neutrophils/100 WBC Auto (Bld) 39.1 % Low 45.0-73.0 [facility] Comment on above: Performed By: #### L 100.0440 ####ML - [address] [address] Platelet mean volume Auto Entitic volume (Bld) 7.5 fL Normal 7.4-9.2 [facility] Comment on above: Performed By: #### L 100.0440 ####ML [facility] MYKNRBPJVL[address] [place] [address] 20010 Platelets Auto #/vol (Bld) 177 X10(3) Normal 150-450 [facility] Comment on above: Performed By: #### L 100.0440 ####ML [facility] OUOVIZPHNA[address] [place] [address] RBC Auto #/vol (Bld) 5.46 x10(6) Normal 4.80-5.50 [facility] Comment on above: Performed By: #### L 100.0440 ####ML - XHKMQSXDAY[address] [place] [address] WBC Auto #/vol (Bld) 7.1 x10(3) Normal 4.5-10.0 [facility] Comment on above: Performed By: #### L 100.0440 ####ML - [facility] [address] [address] CHEST (TWO VIEWS) - CXRon CHEST (TWO VIEWS) - CXR [address] [address]Kxwz: Aleisha GALEANO: DAVID VAUGHN M.D.: [birth year] Age: 51 Sex: MAcct: [id number] Loc: [facility] Date: 08/26/17 Status: ADM INRadiology No.: [id number] Number: [id number] # Type/[id number] RAD / CHEST (TWO VIEWS) - CXRCHEST PA and lateral:Clinical Indication: Shortness of breath and chest pain.Comparison Study: 09/21/2014.The heart, yi, mediastinum, and lungs are normal. No mass, infiltrate,pleural fluid, or vascular congestion is seen. The bones are intact.IMPRESSION:1. No acute chest process.Professional interpretation provided by [facility]-PC-66.Thank you for this referral.< >Reported By: EFREN ANDREWS D.O.Signed In NovaPro By: EFREN ANDREWS D.O. << Signature on File>> Reported By: EFREN ANDREWS D.O. Signed By: EFREN ANDREWS D.O.Tests performed at:[address] [phone] [facility] ECHO COMPLETEon 08-26-2017 ECHO COMPLETE THE [place], [place] [address]OZQMAM INFORMATION MANAGEMENTCARDIOLOGY REPORTPatient: YESICA GALEANO WAYNE D D.O.[id number] MStatus: DIS IN [facility] 2229-BExam # Type/[id number] CARD / ECHO COMPLETEECHOCARDIOGRAM REPORTDATE OF WBWHNPT2508/26/2017REFERRING PHYSICIANDr. MendozaineniCLINICAL INFORMATIONChest pain.SONOGRAPHERR.M.BHGWVQ34 XOQZSO138WQCIV DAKJRYOO458/702D/M-MODEMEASU REMENTS Pt VALUES NORMALSIVS (Ed) 1.3 cm 0.6-1.2 cmLVP Wall (Ed) 1.3 cm 0.6-1.2 cmLVID (Ed) 5.3 cm 3.8-5.0 cmLVID (Es) 3.5 cm 2.2-3.4 cmL.A. Diameter 3.2 cm 1.5-4.0 cmRoot Diameter 3.2 cm 2.0-3.5 cmESTIMATED EJECTION HKAABCQB33 to 60%TECHNICAL DESCRIPTIONThe patient was imaged in the standard M-mode and 2-D views. Continuous wave and pulsedDoppler interrogation were performed. Color flow was performed.FINDINGS1. Left Ventricle: Left ventricular wall thickness increased. There is concentric leftventricular hypertrophy. Normal wall motion is seen. Ejection fraction 55 to 60%.2. Left Atrium: Left atrial size is normal.3. Right Ventricle: Normal.4. Right Atrium: Normal.5. Aortic Valve: Aortic valve is 2.2. Aortic valve is three leaflets, opens freely. Nooutflow tract obstruction seen.6. Mitral Valve: Mitral valve area is 3.2. Mitral valve is normal size and consistency. Atrace degree of regurgitation.7. Pulmonic Valve: Normal.8. Tricuspid Valve: Trace of regurgitation.9. Aorta: Ascending aorta is normal.10. Pericardium: No evidence of pericardial fluid or masses noted.11. Intracardiac Masses: No masses noted.12. PA pressure is estimated at 20 mmHg.13. Reversal of E:A ratio consistent with diastolic dysfunction.CONCLUSIONEchoca rdiogram demonstrates concentric left ventricular hypertrophy. Normal wall motion isseen. Ejection fraction 55 to 60%. Diastolic dysfunction seen. Trace degree of tricuspidregurgitation. 08/31/17 0606 LOIS GANDHI D.O.cc: DAVID VAUGHN M.D. << Signature on File>> Reported By: LOIS GANDHI D.O. Signed By: LOIS GANDHI D.O.Tests performed at:[address] [phone] Normal [facility] GLUCOSE FSon 08-26-2017 Glucose mass conc 149 mg/dL High 70-110 [facility] Comment on above: Performed By: #### L 200.1602, L200.1642 ####ML - VFBIESHRWF535 [place] [address] Glucose mass conc 100 mg/dL Normal 70-110 [facility] Comment on above: Performed By: #### L 200.1602, L200.1642 ####ML - LOHMMGQFKV737 [place] [address] Glucose mass conc 127 mg/dL High 70-110 [facility] Comment on above: Performed By: #### L 200.1602, L200.1642 ####ML - YJPUFRKYDL075 [place] [address] LACTIC ACIDon 08-26-2017 Lactate molar conc 1.4 mmol/L Normal 0.5-2.0 [facility] Comment on above: Performed By: #### L 200.1602, L200.1642 ####ML - WOGQNDCBLK[address] [place] [address] LIPID PANELon 08-26-2017 Cholesterol in HDL mass conc 32 mg/dL Normal [facility] Comment on above: Result Comment: Alda onal Cholesterol Education Program (NCEP) guidelines:<40 mg/dL: Low HDL-Cholesterol(major risk factor for CHD)> or = 60 mg/dL: High HDL-Cholesterol(negative risk factor for CHD)HDL-cholesterol is affected by a number of factors,e.g., smoking, exercise, hormones, sex, and age.4th Generation Test; Results may be approximately 7% lowerthan previous values. Performed By: #### L 200.1602, L200.1642 ####ML - ZSVHRDIWLM003 [place] [address] Cholesterol in LDL mass conc 52 mg/dL [facility] Comment on above: Result Comment: LDL: OPTIMAL FOR PEOPLE AT VERY HIGH RISK <70 OPTIMAL <100 NEAR OPTIMAL 100-129 BORDERLINE HIGH 130-159 HIGH 160-189 VERY HIGH >=190Source: 2008 NCEP ATP III, ADA GuidelinesReviewed: June, Performed By: #### L 200.1602, L200.1642 ####ML - EFBEVDZECK[address] [place] [address] Cholesterol in LDL/Cholesterol in HDL mass ratio 1.6 Normal [facility] Comment on above: Performed By: #### L 200.1602, L200.1642 ####ML - RFWVQHLAZL[address] [place] [address] Cholesterol in VLDL mass conc 33 mg/dL Normal 6-40 [facility] Comment on above: Performed By: #### L 200.1602, L200.1642 ####ML - ZZWMJOUPLX106 [place] [address] Cholesterol mass conc 117 mg/dL Low 130-200 [facility] Comment on above: Performed By: #### L 200.1602, L200.1642 ####ML - DMOTQOFHWO779 [place] [address] Triglyceride mass conc 163 mg/dL Normal [facility] Comment on above: Result Comment: TRIG : DESIRABLE: <150 mg/dL Performed By: #### L 200.1602, L200.1642 ####ML - CXVELULDHN313 [place] [address] TROPONIN Ton 08-26-2017 Troponin T.cardiac mass conc ug/L Normal 0-0.010 [facility] Comment on above: Performed By: #### L 200.1602, L200.1642 ####ML - RGFKRRCAFZ229 [place] [address] UCon 08-26-2017 UC ORGANISM 1: AEROCOCC US VIRIDANS COLONY COUNT > 100,000 NO YASEMIN AVAILABLE NO YASEMIN AVAILABLE Normal [facility] Comment on above: Performed By: #### L 200.1602, L200.1642 ####ML - HRBVZUXQGE781 [place] [address] ELECTROCARDIOGRAMon 08-26-19 18 ELECTROCARDIOGRAM [place], [place] [address]IWUKFY INFORMATION MANAGEMENTELECTROCARDIOGRAM REPORTPatient: Jesus GALEANOering: BRIAN HAMM D.O.[id number] MExam Date: 08/25/17Report #: [id number]: ADM IN [facility] 2229-BSINUS TACHYCARDIABORDERLINE RIGHT AXIS DEVIATIONABNORMAL RHYTHM ECGPREVIOUS TRACIN09/21/14 10.29Physician Furnace Erector: MIKE MITCHELL M.D.Ventricular Rate EK /minR-R Interval: 552 msP Wave duration: 125 msQRS duration: 102 msP-R interval: 181 msQ-T interval: 386 msQ-T interval (corrected): 454 msQ-T Dispersion: msP wave axis: 56 degQRS axis: 98 degT axis: 61 degSigned in PYRAMIS08/25/17 2155 MIKE MITCHELL M.D.cc: << Signature on File>> Reported By: MIKE MITCHELL M.D. Signed By: MIKE MITCHELL M.D.Tests performed at:[address] [phone] [facility] 08-25-2017 Comment: PERIPHERAL TO BE COLLECTED LATER PATIENT IN TESTING No [facility] Comment on above: Performed By: #### L 200.1602, L200.1642 ####ML - IZYOORCGQD530 [place] [address] Comment: PERIPHERAL TO BE COLLECTED LATER PATIENT IN TESTING No [facility] Comment on above: Performed By: #### L 200.1602, L200.1642 ####ML [facility] QHAVHRAPJT855 [place] [address] [facility] Anion gap 3 molar conc 16.6 mmol/L [facility] Comment on above: Performed By: #### L 100.0010, L301.0120 ####ML - AYRHTDVZNY917 [place] [address] Calcium mass conc 9.2 mg/dL Normal 8.6-10.0 [facility] Comment on above: Performed By: #### L 100.0010, L301.0120 #### - WXQYUBKBIT646 [place] [address] Chloride molar conc 89 mmol/L Low 98-107 [facility] Comment on above: Performed By: #### L 100.0010, L301.0120 ####[facility] MDSSAAGJZT228 [place] [address] Creatinine mass conc 0.72 mg/dL Normal 0.70-1.20 [facility] Comment on above: Performed By: #### L 100.0010, L301.0120 #### - BVFXQPZGBA[address] [place] [address] eGFR if AFR NURIS > 60 ml/min/1.73m2 Normal [facility] Comment on above: Result Comment: eGFR >= 60 Indicates normal kidney function. * eGFR IS AN ESTIMATE * (AFR NURIS = ) (non-AFR AM = NON-) MDRD calculation used in the eGFR should not be used to dose medications. For further limitations of the eGFR please refer to the Physician Website or the National Kidney Disease Education Program website (www.nkdep.nih.gov). Performed By: #### L 100.0010, L301.0120 ####[facility] WBNPLJVABY221 [place] [address] eGFR nonAFR Nuris > 60 ml/Min/1.73m2 Normal [facility] Comment on above: Performed By: #### L 100.0010, L301.0120 ####[facility] RGXLNLJAOQ766 [place] [address] Glucose mass conc 146 mg/dL High 74-106 [facility] Comment on above: Performed By: #### L 100.0010, L301.0120 ####[facility] EQJXKUZJSE212 [place] [address] Potassium molar conc 4.6 mmol/L Normal 3.5-5.0 [facility] Comment on above: Performed By: #### L 100.0010, L301.0120 ####[facility] ELD[address] [place] [address] Sodium molar conc 131 mmol/L Low 135-145 [facility] Comment on above: Performed By: #### L 100.0010, L301.0120 ####ML [facility] FHVNDITZOB[address] [place] [address] TCO2 30 mmol/L High 22-29 [facility] Comment on above: Performed By: #### L 100.0010, L301.0120 ####[address] [address] Urea nitrogen mass conc 9 mg/dL Normal 6-20 [facility] Comment on above: Performed By: #### L 100.0010, L301.0120 ####[address] [address] CBCon 08-25-2017 Basophils Auto #/vol (Bld) 0.00 x10(3) Normal 0.00-0.10 [facility] Comment on above: Performed By: #### L 200.0010 ####[address] [address] Basophils/100 WBC Auto (Bld) 0.4 % Normal 0.0-1.0 [facility] Comment on above: Performed By: #### L 200.0010 ####[facility] [address]QRT[address]QZ[address] [place] [address] Eosinophils Auto #/vol (Bld) 0.10 x10(3) Normal 0.00-0.54 [facility] Comment on above: Performed By: #### L 200.0010 ####[address] [address] Eosinophils/100 WBC Auto (Bld) 0.8 % Normal 0.5-4.9 [facility] Comment on above: Performed By: #### L 200.0010 ####[facility] LJVUS[address]BRX[address] [place] [address] Erythrocyte distribution width Auto Ratio (RBC) 13.9 % Normal 12.7-15.3 [facility] Comment on above: Performed By: #### L 200.0010 ####[address] [address] Hematocrit Auto Volume Fraction (Bld) 50.1 % Normal 42.0-51.0 [facility] Comment on above: Performed By: #### L 200.0010 ####[address] [address] Hemoglobin mass conc (Bld) 16.8 g/dL Normal 14.0-17.2 [facility] Comment on above: Performed By: #### L 200.0010 ####[address] [address] Lymphocytes Auto #/vol (Bld) 2.70 x10(3) Normal 1.00-3.50 [facility] Comment on above: Performed By: #### L 200.0010 ####[address] [address] Lymphocytes/100 WBC Auto (Bld) 29.6 % Normal 16.0-48.0 [facility] Comment on above: Performed By: #### L 200.0010 ####[address] [address] MCH Auto Entitic mass (RBC) 29.6 pg Normal 28.8-32.2 [facility] Comment on above: Performed By: #### L 200.0010 ####[address] [address] MCHC Auto mass conc (RBC) 33.5 g/dL Normal 33.0-36.0 [facility] Comment on above: Performed By: #### L 200.0010 ####[address] [address] MCV Auto Entitic volume (RBC) 88.1 fL Normal 80.0-94.0 [facility] Comment on above: Performed By: #### L 200.0010 ####[address] [place] [address] Monocytes Auto #/vol (Bld) 0.70 x10(3) Normal 0.30-0.80 [facility] Comment on above: Performed By: #### L 200.0010 ####ML [address] [address] Monocytes/100 WBC Auto (Bld) 7.6 % Normal 4.3-11.2 [facility] Comment on above: Performed By: #### L 200.0010 ####ML [address] [address] Neutrophils Auto #/vol (Bld) 5.70 x10(3) Normal 1.40-6.50 [facility] Comment on above: Performed By: #### L 200.0010 ####ML [facility] LUFS[address] [place] [address] Neutrophils/100 WBC Auto (Bld) 61.6 % Normal 45.0-73.0 [facility] Comment on above: Performed By: #### L 200.0010 ####ML [facility] GL[address] [place] [address] Platelet mean volume Auto Entitic volume (Bld) 7.6 fL Normal 7.4-9.2 [facility] Comment on above: Performed By: #### L 200.0010 ####ML [facility] YUKNYZVX[address] [place] [address] Platelets Auto #/vol (Bld) 187 X10(3) Normal 150-450 [facility] Comment on above: Performed By: #### L 200.0010 ####ML [facility] XMYR[address]XEQB[address] [place] [address] RBC Auto #/vol (Bld) 5.68 x10(6) High 4.80-5.50 [facility] Comment on above: Performed By: #### L 200.0010 ####ML [facility] VWTNBRKJ[address] [place] [address] WBC Auto #/vol (Bld) 9.2 x10(3) Normal 4.5-10.0 [facility] Comment on above: Performed By: #### L 200.0010 ####ML - [facility] SOAKTAOKSU170 [place] [address] CT ANGIO ABDOMEN W/WO SONU Bernal 08-25-2017 CT ANGIO ABDOMEN W/WO CONTRAST [facility] [place], [place] [address]Qwsw: ALONDRA GALAENOMia: BRIAN HAMM D.O.: [birth year] Age: 51 Sex: MAcct: [id number] Loc: EDExam Date: 08/25/17 Status: REG ERRadiology No.: [id number] Number: [id number] # [id number] CT / CT ANGIO ABDOMEN W/WO CONTRASTPROCEDURE: CT angiogram of the abdomen.HISTORY: Abdominal pain. Hypotension.TECHNIQUE: Thin section axial imaging was obtained with intravenous contrastwith sagittal and coronal and 3-D reconstructions with image post processingon a separate computer workstation.COMPARISON: None.FINDINGS: Motion artifact compromises the images. No aortic dissection oraortic aneurysm. There is mild atherosclerotic disease in aorta and itsbranches. Celiac trunk superior mesenteric artery are widely patent. Renalarteries are unremarkable.There is minimal fluid and inflammatory change around both kidneys. No visiblehydronephrosis or renal or ureteral stones. No renal masses.The liver, gallbladder biliary tree, spleen, stomach and duodenum, adrenalglands and visualized large and small bowel loops are unremarkable inappearance.IMPRESSION:No aortic dissection or aneurysm.Kidneys demonstrate bilateral minimal adjacent fluid and inflammatory change,findings could be acute or chronic, there is no renal obstruction.This exam was performed according to our departmental dose optimizationprogram, and includes the following measures where applicable: automatedexposure control, adjustment of the mAs and/or kVp according to patient sizeand/or exam, and an iterative reconstruction algorithm.Professional interpretation provided by [facility] [address].Thank you for this referral.< >Reported By: OLIVIA LEYVA M.D.Signed In NovaPro By: OLIVIA LEYVA M.D. << Signature on File>> Reported By: OLIVIA LEYVA M.D. Signed By: OLIVIA LEYVA M.D.Tests performed at:[address] [phone] [facility] CT ANGIO CHEST W/WO CONTRAST on 08-25-2017 CT ANGIO CHEST W/WO CONTRAST [facility] [place], [place] [address]Pngv: JANETH GALEANOGonzalesabad: BRIAN HAMM D.O.: [birth year] Age: 51 Sex: MAcct: [id number] Loc: EDExam Date: 08/25/17 Status: REG ERRadiology No.: [id number] Number: [id number] # [id number] CT / CT ANGIO CHEST W/WO CONTRASTPROCEDURE: CT angiogram of the thoraxHISTORY: Chest pain.TECHNIQUE: Thin section axial imaging was obtained without and withintravenous contrast with sagittal and coronal and 3-D reconstructions withimage post processing on a separate computer workstation.COMPARISON: NoneFINDINGS: There is no pulmonary embolus. There is no aortic dissection. Noevidence of the aortic mural hematoma. No aortic aneurysm. There is bilateralemphysematous change. There is minimal groundglass opacity in both upper lungsin the upper segments of both lower lungs.. The heart and great vessels arenormal. No pleural effusion or pleural thickening. No mediastinal or hilarlymphadenopathy. The thyroid gland is normal. No bone lesions. Images belowthe diaphragm are free of abnormality.IMPRESSION:No aortic aneurysm or dissection.No pulmonary embolus.Bilateral groundglass opacities as above developing pneumonia or chronicinflammatory/infectio us processes are possible. Correlate clinically.Recommend imaging followup to resolutionThis exam was performed according to our departmental dose optimizationprogram, and includes the following measures where applicable: automatedexposure control, adjustment of the mAs and/or kVp according to patient sizeand/or exam, and an iterative reconstruction algorithm.Professional interpretation provided by [facility] [address].Thank you for this referral.< >Reported By: OLIVIA LEYVA M.D.Signed In NovaPro By: OLIVIA LEYVA M.D. << Signature on File>> Reported By: OLIVIA LEYVA M.D. Signed By: OLIVIA LEYVA M.D.Tests performed at:[address] [phone] [facility] GLUCOSE FSon 08-25-2017 Glucose mass conc 127 mg/dL High 70-110 [facility] Comment on above: Performed By: #### L 100.0440 ####ML - QFMSERTAHU[address] [place] [address] Glucose mass conc 152 mg/dL High 70-110 [facility] Comment on above: Performed By: #### L 100.0440 ####ML - MEQLXKXJHU[address] [place] [address] HISTORY AND PHYSICALon 08-25 HISTORY AND PHYSICAL [place], [place] [address]TLQQLF INFORMATION MANAGEMENTHISTORY AND PHYSICALPatient: FROYLANCASEY COURTNEY M.D.[id number] MStatus: DIS IN [facility] 2228-BDATE OF NFMCSKXPI24/20/2018CHIEF COMPLAINTThe patient came in complaining of abdominal pain which came up, and also he was sayingthat he had chest pain.HISTORY OF PRESENT ILLNESSMrCatalina Galeano is a 51-year-old morbidly obese male with a significant past medical historyof noninsulin dependent diabetes mellitus, hypertension, hyperlipidemia, tobacco abuse,came to the emergency room complaining of abdominal pain and chest pain. The patient wastelling that around 9:00 a.m. this morning he suddenly started having some abdominal pain.It was midabdomen, and later the pain started going into epigastric region and thenmidsternal chest pain. The patient was telling that pain was about 6/10 in intensity, andit was slightly radiating to the left side of his chest and radiating to his back. Thepatient was mentioning that he also noticed some shortness of breath along with the chestpain but denied any diaphoresis or lightheaded. Denies any palpitations. Also, thepatient was complaining of some minimal shortness of breath. Denies any sputum production.The patient also complained that he had some fevers last night, but he did not check thetemperature, but he was just feeling hot. Denies any chills or rigors. Denies any sickcontacts lately. The patient denies any diarrhea or constipation. During the initialworkup in the emergency room, the patient's CTA of chest showed some bilateral ground glassopacities. The patient had an episode of hypotension in the emergency room with mildelevation of lactic acid. So, as there was concern for pneumonia, the patient was given adose of levofloxacin and fluids, and we are also admitting him to do a chest pain workup.PAST MEDICAL HISTORY1. Hypertension.2. Hyperlipidemia.3. Noninsulin dependent diabetes mellitus.4. Seizures.5. Gastroesophageal reflux disease.6. The patient has schizophrenia/bipolar.ALLERG IESThe patient has no medical allergies.MEDICATIONSThe patient is on:1. Triamterene/Hydrochlorothiaz olivia.2. Omeprazole.3. Lisinopril.4. Metformin.5. Nitroglycerin.6. Depakote.7. Potassium supplements.8. Diltiazem.9. Cogentin.10. Tylenol.11. Lipitor.12. Clozapine.SOCIAL HISTORYThe patient is a smoker, smokes about 1/2 pack per day, and occasional alcohol drinker. Nodrug abuse.FAMILY HISTORYReviewed and it is noncontributory. The patient was telling there is no cardiac history inthe family.REVIEW OF SYSTEMSAll 10 point review of systems have been questioned and the pertinent positives as Imentioned in the history of present illness.PHYSICAL EXAMINATIONVitals: Temperature 98.3, heart rate is 111 and by the time I was examining it was 83,respiratory rate is 20. Blood pressure initially when he came in was 87/64. By the time Iwas examining, it was 134/60. Saturating 93% on room air. General examination: Thepatient is alert and oriented x 3, in no distress. Neck is supple. HEENT: Normocephalic,atraumatic. Pupils equal, reactive to light. Heart: S1, S2 heard. No murmurs, gallops,or regurgitation. The chest pain in the right rib area was reproducible. Abdomen ismildly distended, but it is nontender, soft. No rigidity or guarding. Bowel sounds arepresent. Extremities: Right lower extremity is more swollen. It is nonpitting and notenderness. Pulses are intact. Left lower extremity is normal. As per the patient, hisright lower extremity swelling is chronic for the last 10 years. Neurologically, no focaldeficits. Musculoskeletal: No obvious deformities. Skin: No visible rash.LABSCBC: Reviewed and it is within normal limits. BMP: Sodium is 131, and rest of the BMP iswithin normal limits. Lactic acid is 2.6. Troponins are 0.01. CT angio of abdomen showedno aneurysm or dissection. CT of the chest showed no pulmonary embolism and no dissectionbut showed bilateral ground glass opacities, concerning for developing pneumonia. EKGpersonally reviewed showed sinus tachycardia with no ST changes. Chest x-ray had beenordered for tomorrow.ASSESSMENT AND PLAN1. Atypical chest pain. The patient has risk factors of hypertension, hyperlipidemia,morbid obesity, noninsulin dependent diabetes mellitus, and tobacco abuse. Given the riskfactors, I am cycling his troponins, repeating EKG tomorrow, ordered a stress test fortomorrow, keeping him n.p.o. after midnight, starting him on aspirin 81 mg q. daily. Lipidpanel has been ordered and nitroglycerin p.r.n. for chest pain. Depending on the stresstest results, we will consider cardiology consult.2. Bilateral ground glass opacities, concerning for pneumonia. Given the CT of chestresults, I am repeating chest x-ray tomorrow. I sent sputum cultures and blood cultures,started him on levofloxacin, and we will follow up on the x-ray.3. Hypotension which got resolved now, and most likely it could be from the medications.We will continue to monitor.4. Lactic acid elevation. It is 2.6. The patient got fluids. We will follow up on thelactic acid.5. Mild hyponatremia, could be secondary to medications. Follow up with BMP.6. Hyperlipidemia. Resumed statins. Ordered lipid panel for morning.7. Noninsulin dependent diabetes mellitus. Started him on sliding scale.8. Chronic seizures. Resumed his Dilantin.9. DVT prophylaxis with Lovenox q. daily.10. Tobacco abuse. Started him on 14 mg nicotine patch q. daily. 09/12/17 1713 ___DAVID VAUGHN M.D.cc: DAVID VAUGHN M.D. << Signature on File>> Reported By: DAVID VAUGHN M.D. Signed By: DAVID VAUGHN M.D.Tests performed at:[address] [phone] [facility] LAC ACID (Rflx)on 08-25-2017 LAC ACID (Rflx) 1.3 mmol/L Normal 0.5-2.0 [facility] Comment on above: Performed By: #### L 100.0440 ####ML - [id number] [place] [address] LACTIC ACIDon 08-25-2017 Lactate molar conc 1.4 mmol/L Normal 0.5-2.0 [facility] Comment on above: Order Comment: TO BE COLLECTED LATERTO BE COLLECTED LATER Performed By: #### L 100.0440 ####ML - [id number] [place] [address] Lactate molar conc 2.6 mmol/L Critically high 0.5-2.0 [facility] Comment on above: Performed By: #### L 100.0440 ####ML - [id number] [place] [address] PTon 08-25-2017 INR Coag RelTime (PPP) 1.3 {INR} [facility] Comment on above: Result Comment: CO UMADIN PROTOCOLSINR values are generated for use in patients on coumadin.INR values stabilize 7 days after the start of coumadin orchanges in coumadin dosage. The usual TARGET/INR range is:INDICATION INR RANGEProphylaxis/treatment of: Venous Thrombosis, Pulmonary Embolism 2.0-3.0Prevention of systemic embolism from: Tissue heart valves 2.0-3.0 Acute myocardial infarction (to prevent systemic embolism) 2.0-3.0 AMI (to prevent recurrent WA) 2.5-3.5Valvular heart disease 2.0-3.0 Atrial fibrillation 2.0-3.0Mechanical prosthetic valves (high risk) 2.5-3.5Bileaflet mechanical valve in aortic position 2.0-3.0Presence of Lupus Anticoagulant orAntiphospholipid Antibodies 2.5-3.5PANIC VALUE: GREATER THAN OR EQUAL TO 4.5 Performed By: #### L 200.1602, L200.1642 ####ML - [id number] [place] [address] Prothrombin time (PT) Coag time (PPP) 14.2 s High 9.4-12.5 [facility] Comment on above: Performed By: #### L 200.1602, L200.1642 ####ML - [id number] [place] [address] PTTon 08-25-2017 aPTT Coag time (Bld) 32.9 s Normal 25.1-36.5 [facility] Comment on above: Result Comment: Hepa rin Protocol Therapeutic Range = 54.0-90.0 secs Performed By: #### L 200.1602, L200.1642 ####ML - [id number] [place] [address] TROPONIN Ton 08-25-2017 Troponin T.cardiac mass conc ug/L Normal 0-0.010 [facility] Comment on above: Performed By: #### L 100.0440 ####ML - [id number] [place] [address] Troponin T.cardiac mass conc ug/L Normal 0-0.010 [facility] Comment on above: Performed By: #### L 100.0440 ####ML - CVVAWMOHBK[address] [place] [address] Troponin T.cardiac mass conc ug/L Normal 0-0.010 [facility] Comment on above: Performed By: #### L 100.0010, L301.0120 ####[facility] [address] [place] [address] UA W/C&Son 08-25-2017 Bilirubin Ql (U) Negative Normal NEGATIVE [facility] Comment on above: Order Comment: Sourc e: Clean Catch .. Y Performed By: #### L 200.3001, L200.3190 ####ML - [id number] [place] [address] Color Nom (U) YELLOW Normal YELLOW [facility] Comment on above: Order Comment: Sourc e: Clean Catch .. Y Performed By: #### L 200.3001, L200.3190 ####ML - [id number] [place] [address] Glucose Ql (U) Negative Normal NEGATIVE [facility] Comment on above: Order Comment: Sourc e: Clean Catch .. Y Performed By: #### L 200.3001, L200.3190 ####ML - [id number] [place] [address] Hemoglobin Test strip Ql (U) Negative Normal NEGATIVE [facility] Comment on above: Order Comment: Sourc e: Clean Catch .. Y Performed By: #### L 200.3001, L200.3190 ####ML - [id number] [place] [address] Leukocyte esterase Test strip Ql (U) TRACE Normal NEGATIVE [facility] Comment on above: Order Comment: Sourc e: Clean Catch .. Y Performed By: #### L 200.3001, L200.3190 ####ML - [id number] [place] [address] Nitrite Test strip Ql (U) Negative Normal NEGATIVE [facility] Comment on above: Order Comment: Sourc e: Clean Catch .. Y Performed By: #### L 200.3001, L200.3190 ####ML - [id number] [place] [address] pH Test strip (U) 7.0 [pH] Normal 5.0-8.0 [facility] Comment on above: Order Comment: Sourc e: Clean Catch .. Y Performed By: #### L 200.3001, L200.3190 ####ML - [id number] [place] [address] Protein Test strip Ql (U) Negative Normal NEGATIVE [facility] Comment on above: Order Comment: Sourc e: Clean Catch .. Y Performed By: #### L 200.3001, L200.3190 ####ML - [id number] [place] [address] URINE APPEARANC CLOUDY Normal CLEAR [facility] Comment on above: Order Comment: Sourc e: Clean Catch .. Y Performed By: #### L 200.3001, L200.3190 ####ML - UH [id number] [place] [address] URINE KETONE Negative Normal NEGATIVE [facility] Comment on above: Order Comment: Sourc e: Clean Catch .. Y Performed By: #### L 200.3001, L200.3190 ####ML - UH [id number] [place] [address] URINE SPECIFIC 1.010 Normal 1.001-1.03 5 [facility] Comment on above: Order Comment: Sourc e: Clean Catch .. Y Performed By: #### L 200.3001, L200.3190 ####ML - [id number] [place] [address] URINE UROBILINO 1.0 EU/DL Normal 0.2-1.0 [facility] Comment on above: Order Comment: Sourc e: Clean Catch .. Y Performed By: #### L 200.3001, L200.3190 ####ML - UH [id number] [place] [address] UCon 08-25-2017 UC ORGANISM 1: AEROCOCC US VIRIDANS COLONY COUNT > 100,000 NO YASEMIN AVAILABLE NO YASEMIN AVAILABLE Normal [facility] Comment on above: Performed By: #### L 200.1602, L200.1642 ####ML - UH [id number] [place] [address] UC NO SIGNIFICANT GROWTH Normal [facility] Comment on above: Performed By: #### L 200.1602, L200.1642 ####ML - UH [id number] [place] [address] URINALYSISon 08-25-2017 Bilirubin Ql (U) Negative Normal NEGATIVE [facility] Comment on above: Order Comment: Sourc e: Clean Catch .. Y Performed By: #### L 100.0440 ####ML - UH [id number] [place] [address] Color Nom (U) YELLOW Normal YELLOW [facility] Comment on above: Order Comment: Sourc e: Clean Catch .. Y Performed By: #### L 100.0440 ####ML - [id number] [place] [address] Glucose Ql (U) Negative Normal NEGATIVE [facility] Comment on above: Order Comment: Sourc e: Clean Catch .. Y Performed By: #### L 100.0440 ####ML - [id number] [place] [address] Hemoglobin Test strip Ql (U) Negative Normal NEGATIVE [facility] Comment on above: Order Comment: Sourc e: Clean Catch .. Y Performed By: #### L 100.0440 ####ML - [id number] [place] [address] Leukocyte esterase Test strip Ql (U) SMALL Normal NEGATIVE [facility] Comment on above: Order Comment: Sourc e: Clean Catch .. Y Performed By: #### L 100.0440 ####ML - [id number] [place] [address] Nitrite Test strip Ql (U) Negative Normal NEGATIVE [facility] Comment on above: Order Comment: Sourc e: Clean Catch .. Y Performed By: #### L 100.0440 ####ML - [id number] [place] [address] pH Test strip (U) 6.0 [pH] Normal 5.0-8.0 [facility] Comment on above: Order Comment: Sourc e: Clean Catch .. Y Performed By: #### L 100.0440 ####ML - [id number] [place] [address] Protein Test strip Ql (U) Negative Normal NEGATIVE [facility] Comment on above: Order Comment: Sourc e: Clean Catch .. Y Performed By: #### L 100.0440 ####ML - [id number] [place] [address] URINE APPEARANC SL CLOUDY Normal CLEAR [facility] Comment on above: Order Comment: Sourc e: Clean Catch .. Y Performed By: #### L 100.0440 ####ML - [id number] [place] [address] URINE KETONE Negative Normal NEGATIVE [facility] Comment on above: Order Comment: Sourc e: Clean Catch .. Y Performed By: #### L 100.0440 ####ML - UH [id number] [place] [address] URINE SPECIFIC 1.010 Normal 1.001-1.03 5 [facility] Comment on above: Order Comment: Sourc e: Clean Catch .. Y Performed By: #### L 100.0440 ####ML - UH [id number] [place] [address] URINE UROBILINO 0.2 EU/DL Normal 0.2-1.0 [facility] Comment on above: Order Comment: Sourc e: Clean Catch .. Y Performed By: #### L 100.0440 ####ML - [id number] [place] [address] URINE MICROSCOPon 08-25-2017 Bacteria LM.HPF #/area (Urine sed) 4+ Normal NEGATIVE [facility] Comment on above: Order Comment: Sourc e: Clean Catch .. Y Performed By: #### L 100.0440 ####ML - UH [id number] [place] [address] RBC Test strip #/vol (U) 0 /uL Normal 0-2 [facility] Comment on above: Order Comment: Sourc e: Clean Catch .. Y Performed By: #### L 100.0440 ####ML - [id number] [place] [address] SQUAMOUS FEW Normal NEGATIVE [facility] Comment on above: Order Comment: Sourc e: Clean Catch .. Y Performed By: #### L 100.0440 ####ML - UH [id number] [place] [address] WBC #/vol (U) 6-10 Normal 0-5 [facility] Comment on above: Order Comment: Sourc e: Clean Catch .. Y Performed By: #### L 100.0440 ####ML - UH [id number] [place] [address] Bacteria LM.HPF #/area (Urine sed) 3+ Normal NEGATIVE [facility] Comment on above: Order Comment: Sourc e: Clean Catch .. Y Performed By: #### L 200.3001, L200.3190 ####ML - [id number] [place] [address] RBC Test strip #/vol (U) 0 /uL Normal 0-2 [facility] Comment on above: Order Comment: Sourc e: Clean Catch .. Y Performed By: #### L 200.3001, L200.3190 ####ML - [id number] [place] [address] SQUAMOUS OCC Normal NEGATIVE [facility] Comment on above: Order Comment: Sourc e: Clean Catch .. Y Performed By: #### L 200.3001, L200.3190 ####ML - UH [id number] [place] [address] WBC #/vol (U) 3-6 Normal 0-5 [facility] Comment on above: Order Comment: Sourc e: Clean Catch .. Y Performed By: #### L 200.3001, L200.3190 ####ML - UH [id number] [place] [address] Vital Signs Date Time Vital Sign Value Performing Clinician Tasha mcginnis 07-25-2024 08:48-0400 Body height 182.[address] Rhina Duncan MD Work Phone: [facility] 07-25-2024 08:48-0400 Body mass index (BMI) [Ratio] 40.6 kg/m2 Dr. Rhina Duncan MD Work Phone: [facility] 07-25-2024 08:48-0400 Body weight 136.[address] Rhina Duncan MD Work Phone: [facility] 07-25-2024 08:48-0400 Diastolic blood pressure 85 mm[Hg] Dr. Rhina Duncan MD Work Phone: [facility] 07-25-2024 08:48-0400 Heart rate 103 /min Dr. Rhina Duncan MD Work Phone: [facility] 07-25-2024 08:48-0400 Respiratory rate 20 /min Dr. Rhina Duncan MD Work Phone: [facility] 07-25-2024 08:48-0400 SaO2% (BldA) [Mass fraction] 93 % Dr. Rhina Duncan MD Work Phone: [facility] 07-25-2024 08:48-0400 Systolic blood pressure 127 mm[Hg] Dr. Rhina Duncan MD Work Phone: [facility] 11-13-2022 08:51-0400 Body height 177.8 cm Ida Mckenzie DRIVER MATERIAL HANDLER.ENGLISH PROFESSOR Work Phone: [facility] 11-13-2022 08:51-0400 Body weight 143.79 kg Ida Mckenzie DRIVER MATERIAL HANDLER.ENGLISH PROFESSOR Work Phone: [facility] 11-13-2022 08:51-0400 Diastolic blood pressure 85 mm[Hg] Ida Mckenzie DRIVER MATERIAL HANDLER.ENGLISH PROFESSOR Work Phone: [facility] 11-13-2022 08:51-0400 Systolic blood pressure 125 mm[Hg] Ida Mckenzie DRIVER MATERIAL HANDLER.ENGLISH PROFESSOR Work Phone: [facility] Encounters Encounter Date Encounter Type Care Provider Facility Start: 09-05-2024 ambulatory [facility] Facility:[facility] Start: 08-28-2024 End: 08-28-[address] Rhina Duncan MD Work Phone: [facility] Work Phone: Start: 08-28-2024 End: 08-28-2024 Patient encounter procedure Lou [facility] Work Phone: Start: 08-28-2024 End: 08-28-2024 ambulatory Rhina Duncan Facility:[facility] Start: 07-25-2024 End: 07-25-2024 Patient encounter procedure Lou [facility] Work Phone: Start: 07-25-2024 End: 07-25-[address] Rhina Duncan MD Work Phone: [facility] Work Phone: Start: 07-20-2024 End: 07-20-2024 ambulatory KAYE MALDONADO [facility] Start: 05-03-2024 End: 05-03-[address] RHINA DUNCAN MD [facility] Start: 03-27-2024 End: 03-27-2024 ambulatory KUNAL POLK DRIVER MATERIAL HANDLER-ENGLISH PROFESSOR Facility:[facility] Start: 03-27-2024 End: 03-27-2024 Patient encounter procedure KUNAL POLK DRIVER MATERIAL HANDLER-ENGLISH PROFESSOR [facility] Start: 03-08-2024 ambulatory RHINA MALDONADO [facility] Start: 12-29-2023 End: 12-30-2023 ambulatory KAYE MALDONADO [facility] Start: 11-13-2022 End: 11-14-2022 ambulatory IDA HERRERA Facility:[id number] Start: 11-13-2022 End: 11-13-2022 Patient encounter procedure Ida Herrera DRIVER MATERIAL HANDLER.ENGLISH PROFESSOR Work Phone: Urology Comment on above: Other hydrocele Start: 10-20-2017 End: 10-20-2017 Emergency department patient visit LOU Wilson PARKER Facility:[facility] Start: 08-25-2017 End: 08-28-2017 Evaluation and management of inpatient BRIAN HAMM Facility:[facility] Procedures Date Procedure Procedure Detail Performing Clinician Start: 08-28-[address] Rhina Duncan MD Work Phone: Start: 01-31-2024 PSA screening KAYE HARDING Comment on above: Performed By: #### 2 [id number] #### [facility],[address] [place] [address] Cholecystectomy KUNAL BARCENAS DRIVER MATERIAL HANDLER-ENGLISH PROFESSOR History of cholecystectomy Hx of cholecystectomy Lou Paulino SAMPLE SUPERVISOR-C Tube feeding of patient GENE POLK DRIVER MATERIAL HANDLER-ENGLISH PROFESSOR Plan of Treatment Date Care Activity Detail Author Start: 10-12-2025 DIABETES SCREEN DIABETES SCREEN [facility] Start: 11-06-2022 Influenza vaccination INFLUENZA (#1) [facility] Start: 09-07-2022 PROSTATE CANCER SCREENING DISCUSSION PROSTATE CANCER SCREENING DISCUSSION [facility] Start: 08-26-2022 LIPID SCREEN LIPID SCREEN [facility] Start: 03-08-2022 DEPRESSION ASSESSMENT DEPRESSION ASSESSMENT [facility] Start: 09-07-2017 SHINGRIX VACCINE (1 of 2) SHINGRIX VACCINE (1 of 2) [facility] Start: 09-07-2012 COLOGUARD (FIT-DNA) COLOGUARD (FIT-DNA) [facility] Start: 09-07-2012 Colonoscopy COLONOSCOPY [facility] Start: 09-07-2012 COLORECTAL CANCER SCREENING COLORECTAL CANCER SCREENING [facility] Start: 09-07-[address] COLONOGRAPHY [facility] Start: 09-07-2012 FECAL OCCULT BLOOD FECAL OCCULT BLOOD [facility] Start: 09-07-2012 SIGMOIDOSCOPY SIGMOIDOSCOPY [facility] Start: 09-07-1997 Zoledronic acid therapy ALPHA-1 ANTITRYPSIN DEFICIENCY SCREENING [facility] Start: 09-07-1986 Urine microalbumin profile DTAP,TDAP,TD (1 - Tdap) [facility] Start: 09-07-1985 ANNUAL PCP TEAM CHRONIC DISEASE VISIT ANNUAL PCP TEAM CHRONIC DISEASE VISIT [facility] Start: 09-07-1985 BP CONTROLLED (<130/80) BP CONTROLLED (<130/80) [facility] Start: 09-07-1985 HEPATITIS C SCREENING HEPATITIS C SCREENING [facility] Start: 09-07-1985 HIV SCREENING HIV SCREENING [facility] Start: 09-07-1985 SPIROMETRY SPIROMETRY [facility] Start: 09-07-1973 PNEUMOCOCCAL (1 - PCV) PNEUMOCOCCAL (1 - PCV) [facility] Start: 03-10-1968 COVID-19 VACCINE (#1) COVID-19 VACCINE (#1) [facility] Start: 1965 HEPATITIS B (1 of 3 - 3-dose series) HEPATITIS B (1 of 3 - 3-dose series) [facility]dom[facility] Payers Date Payer Category Payer Self-pay 2017 Medicaid [id number] 2017 Medicaid [id number] 1965 Unknown [id number] 2.16.8 [id number] 1965 Unknown [id number] 2.16.8 [id number] 1965 Unknown [id number] 2.16.8 [id number] 1965 Unknown [id number] 2.16.8 [id number] Unknown [id number] 2.16.8 [id number] Unknown [id number] 2.16.8 [id number] Unknown [id number] 2.16.8 [id number] Social History Date Type Detail Facility Start: 11-13-2022 Tobacco smoking stat [facility] Never smoked tobacco [facility] Start: 11-13-2022 Tobacco use and exposure Smoke less tobacco non-user [facility] Start: 11-13-2022 Alcohol intake Lifetime non-d sue (finding) [facility] Start: 11-13-2022 History of Social function [facility] Start: 11-13-2022 Tobacco use panel [facility] National Score (1-10 0), lower number is lower risk 54 [facility] Start: 1965 Sex Assigned At Not on file [facility] Start: 03-10-2024 Tobacco smoking status Light t obacco smoker (finding) [facility] Sexual Orientation [facility] Start: 03-30-2008 Sex Male (finding) [facility] Start: 07-25-2024 [facility] Start: 1965 Sex Assigned At Male [facility] Clinical Notes 11-13-2022 to 08-28-2024 Note Date & Type Note Facility 08-28-2024 Radiology Diagnostic study note [facility] Imaging Services [address] [place], [place] [id number] Abdomen Limited MR#: [id number] Acct: [id number] Name: GEREMIAS GALEANO Rep #: [id number] : 1965 M 58 From: Stevan Farias MD PCP: Dr. Rhina Duncan MD Status: REG C LI Study:Abdomen Limited Date of Exam: 08/07 05/30 Exam# [id number] Ordering Dr: oLu Paulino PROCEDURE: ABDOMEN LIMITED 08/28/2024 REASON FOR EXAM: ABDOMINAL PAIN COMPARISON: None FINDINGS: Liver: Diffusely echogenic suggesting fatty infiltration. Hepatomegaly. The liver measures 18.5 cm. Gallbladder: Surgically absent. Common bile duct: The common bile duct measures 4 mm. . Pancreas: Visualized portions are unremarkable. The distal body and tail are obscured by bowel gas. Other: Visualized portions of the right kidney are unremarkable. No right upperquadrant ascites. The spleen measures 12 cm x 3.6 cm x 3.1 cm. US/Abdomen Limited IMPRESSION: Hepatomegaly and fatty infiltration of the liver. Status post cholecystectomy. The spleen is not enlarged. Reading Location: [facility] CC: SAMPLE SUPERVISOR-Salvatore Paulino; Dr. Rhina Duncan MD ~ Applications Manager: Signed [facility] 07-25-2024 Evaluation note Diagnosis Onset Date Resolution Abdominal pain acute July 25, 2024 8:29am Hx of cholecystectomy acute July 25, 2024 8:29am Personal history of colonic polyps acute July 25, 2024 8:29am [facility] Work Phone: 1(852) 940-675105-20-2025 [facility] [address] [place] [address] OFFICE VISIT Date of Service: 07/25/24 MR#: [id number] Acct: [id number] Name: GEREMIAS GALEANO Rep #: [id number] : 1965 Provider: SHEILA Paulino Age/Sex: 58/M [facility] [facility] Status: Signed Intake Vital Signs 07/25/24 08:48 Height 6 ft Weight: 300 lb BMI 40.6 BP 127/85 H Respiration 20 H Pulse 103 H Pulse Oximetry (%) 93 Oxygen Delivery Method room air Intake Visit Reasons: Pre colon Furnace Erector Required: No Accompanied by: Caregiver Is patient in pain?: No Allergies No Known Allergies Allergy (Unverified 07/25/24 08:35) Medications ?Medication ?Instructions ?Recorded ?Confirmed ?Type divalproex 500 mg tablet,delayed 500 mg PO .QD 5 07/24/24 History release (Depakote) famotidine 20 mg tablet 20 mg PO QDAY 07/24/2407/24 History metformin 500 mg tablet 500 mg PO BID 07/24/2407/24 History nitroglycerin 0.4 mg sublingual 0.4 mg sublingual Q5M PRN 07/24/24 07/24/24 History tablet potassium chloride 20 mEq 20 meq PO QDAY 07/24/2407/06 History tablet,extended release(part/cryst) (Klor-Con M) sennosides 8.6 mg capsule (senna) 8.6 mg PO QDAY PRN 0 07/24/24 07/24/24 History budesonide-formoterol HFA 160 2 puff inhalation BID 07/25/24 History mcg-4.5 mcg/actuation aerosol inhaler (Symbicort) cholecalciferol (vitamin D3) 25 50 mcg PO QDAY 5 07/25/24 History mcg (1,000 unit) capsule clozapine 200 mg tablet 500 mg PO .QD 07/25/2407/25 History duloxetine 20 mg capsule,delayed 40 mg PO QDAY 5 07/25/24 History release (Cymbalta) empagliflozin 25 mg tablet 25 mg PO QDAY 07/25/2407/07 History (Jardiance) fenofibrate nanocrystallized 48 mg 48 mg PO QDAY 07/2507/25/24 History tablet furosemide 20 mg tablet 20 mg PO QDAY 07/25/2407/25 History insulin glargine 100 unit/mL (3 25 unit subcut QDAY 07/25/24 History mL) subcutaneous pen (Lantus Solostar U-100 Insulin) lactulose 10 gram/15 mL oral 30 g PO BID 07/25/2407/07 History solution metoprolol tartrate 50 mg tablet 50 mg PO QDAY 5 07/25/24 History sacubitril 97 mg-valsartan 103 mg 1 tab PO BID 5 07/25/24 History tablet (Entresto) Nurse's Note: Not having any problems with bowels. Some abdominal discomfort. [facility] Medical History GERD without esophagitis Bipolar disorder COPD (chronic obstructive pulmonary disease) Asymptomatic gallstones Unintentional weight loss Hyperplastic colon polyp Type 2 diabetes mellitus Osteoarthritis DOMENICO (obstructive sleep apnea) Schizophrenia Hyperlipidemia Angina pectoris HPI HPI Details: GEREMIAS GALEANO, is a 58 M who presents to the office today for 10/19/2019 Colon (rectal hyperplastic) & EGD (unremarkable) 2019 - recall 5-10 years - seen in office today with FACE BURLER from [facility] - denies family h/o colon CA - reports he has had intermittent epigastric abdominal pain ever since CCX - epigastric burning pain, exacerbated with participating in activities, denies any radiation of pain - denies any N/V - denies any dysphagia - denies any bleeding - he has a BM daily, denies any constipation or diarrhea - denies any weight loss - he takes Famotidine 20mg QD - denies any pain with eating - h/o PEG ROS Const Constitutional: Positive for headache(s); No fatigue, fever(s) or weight change ENT ENT: Positive for headache(s); No difficulty swallowing Gastro GI: No abdominal pain, belching, bloating, change in bowel habits, change in stool character, coffee ground emesis, constipation, cramping, diarrhea, heartburn, difficulty swallowing, feeling full early, excessive flatus, incontinent of stools, Vomiting blood/hematemesis, Blood in stool, loose stool s,Black,tarry stools, nausea/dyspepsia, pain with swallowing, vomiting or other Musc Musculoskeletal: No joint pain Skin Skin: No yellowing of the eye or itchy eyes Neuro Neurology: Positive for headache(s) Psych Psychiatric: No anxiety and No depression Endo Endocrine: No fatigue or weight change Aller/Imm Allergy/Immunologic: No itchy eyes Bravo/Lymp Hematologic/Lymphatic: No easy bleeding or easy bruising Exam Const General: cooperative, healthy appearing, no acute distress and well developed Nutritional Appearance: well nourished and obese Orientation: alert and oriented x3 HENMT Head: normocephalic Ears: hearing grossly normal bilaterally Mouth: moist mucous membranes Eyes Conjunctivae: conjunctivae normal Sclera: sclerae normal Neck Neck: normal visual inspection, full ROM and trachea midline Resp Effort & Inspection: normal respiratory effort, able to speak in complete sentences and symmetric chest movement Auscultation: Bilateral: Clear to Auscultation (upper lobes) and Rhonchi (bilateral bases) Cardio Rate: regular rate Rhythm: regular rhythm Heart Sounds: S1 normal and S2 normal GI Inspection: normal to inspection and obesity Auscultation: normal bowel sounds Palpation: soft and no hepatosplenomegaly Rectal Exam: deferred Other: ABD round, non-distended Skin General: no rashes or lesions noted and turgor normal Neuro General: patient alert and patient oriented x3 Cranial Nerves: other (CN's grossly intact, non-focal exam) Cognition: normal cognition Speech: speech normal Gait: normal gait Extrem General: normal to inspection (no edema noted) Psych Appearance: grossly normal and well kempt Mood: congruent mood Affect: normal affect Speech and Movement: speech and movement normal Attitude: cooperative Thought Process: normal Assessment and Plan Assessment and Plan (1) Abdominal pain: Status: Acute Qualifiers: Abdominal location: epigastric Qualified Code(s): R10.13 - Epigastric pain (2) Personal history of colonic polyps: Status: Acute Comment: 10/2019 hyperplastic rectal polyp (3) Hx of cholecystectomy: Status: Acute Orders: Orders Abdomen Limited Today R10.9 - Unspecified abdominal pain Plan 58-year-old male presents for initial consultation for screening colonoscopy. PMH is significant for HFpEF, cardiomyopathy, hypertension, COPD, hyperlipidemia, type 2 diabetes, GERD, cholecystectomy,morbid obesity, and paranoid schizophrenia. He resides at [facility]. Colonoscopy and EGD were last performed in 2019. EGD was unremarkable and colonoscopy revealed a rectal hyperplastic polyp. Labs completed 05/23/2024 reveal hemoglobin 15.6, PLT 266, A1c 8.1. Transaminases were unremarkable 04/24/2024. He denies any change in bowel habits, weight loss, or bleeding. He denies any family history of colon cancer or colonoscopy prior to 2019. Based on screeningguidelines I recommend a repeat colonoscopy in 2029. He does endorse mild intermittent epigastric abdominal pain with movement. Denies any nausea, vomiting, heartburn, or dysphagia. I recommend an abdominal ultrasound and follow-up in office in 6 weeks. Note: Showpad speech recognition die attacher software was used to create portions of this document. Sound-alike and misspelled words, as well as other die attacher errors may be contained in the documentation. Patient Instructions: Abdominal US, call [phone] to schedule Follow-up in office in 6 weeks Recall colonosocpy in 2029, sooner for symptoms (i.e. pain, bleeding, change in bowel habits, unexplained weight loss) Smoking cessation recommended - https://www.cdc.gov/tobacco/about/how-to-quit.html Coding Level of Care Code Off vis,new,level 4 Diagnoses Epigastric pain R10.13 Abdominal location: epigastric Personal history of colonic polyps Z86.0100 Hx of cholecystectomy Z90.49 Clinical Quality Measures Smoking Screening Smoking Status: Current every day smoker Tobacco counseling given: Smoking cessation education 07/25/24 0908 landon SOSA> Date _ Lou SOSA Cosigner Signature: Date (if applicable) CC: ~ [facility]2023 NoteHNO ID: [id number] Author: Ida Herrera APRN.ENGLISH PROFESSOR Service: ? Author Type: Nurse Practitioner Type: Progress Notes Filed: 11/13/2022 9:21 AM Note Text: [facility] ESTABLISHED PATIENT OFFICE VISIT Patient presents with: Follow Up: Patient here for 1 year f/u. Possible scrotal problem. HISTORY OF PRESENT ILLNESS Geremias Galeano is a 57 year old male who is here for follow up of hydrocele. Pt is doing well, no testicular pain or discomfort. No bothersome LUTS or hematuria. Review of Systems Constitutional: Negative for appetite change. HENT: Negative for sneezing. Respiratory: Negative for cough. Cardiovascular: Negative for chest pain. Gastrointestinal: Negative for nausea and vomiting. Skin: Negative for rash. Neurological: Negative for facial asymmetry. The remainder of the ROS was reviewed and is negative. LAB Creatinine Date Value Ref Range Status 01/08/2022 0.72 (L) 0.73 - 1.22 mg/dL Final No results found for: PSA, PSASC No results found for: UGLUCPOC, UBILIPOC, UKETONPOC, USGPOC, UHBPOC, UPHPOC, UPROPOC, UUROPOC, UNITPOC, UWBCPOC, UCOLPOC, UCLARPOC] MEDICATIONS acetaminophen (TYLENOL) 325 mg tablet Take 325 mg by mouth every 6 hours as needed. aspirin 81 mg chewable tablet as directed. JARDIANCE 10 mg tablet famotidine (PEPCID) 20 mg tablet LANTUS SOLOSTAR U-100 INSULIN 100 unit/mL (3 mL) furosemide (LASIX) 20 mg tablet lactulose 10 gram/15 mL solution metoprolol succinate ER (TOPROL XL) 50 mg 24 hr tablet nitroglycerin sublingual (NITROQUICK) 0.4 mg SL tablet as directed. senna-docusate (SENNA-S) 8.6-50 mg per tablet 1 tablet as needed Orally Twice a day CLOZAPINE 25 MG TAB Take THREE (3) tablets four (4) times daily. FLUTICASONE 50 MCG/ACTUATION NASAL SPRAY, SUSP ONE SPRAY IN EACH NOSTRIL DAILY METFORMIN 500 MG TAB Take one(1) tablet two(2) times daily. (BREAKFAST AND DINNER) ATORVASTATIN 10 MG TAB Take one(1) tablet at bedtime. (Patient not taking: Reported on 11/13/2022) BENZTROPINE 1 MG TAB Take one(1) tablet two(2) times daily. (Patient not taking: Reported on 11/13/2022) CITALOPRAM 20 MG TAB Take one(1) tablet daily. TAKE WITH ONE 10 MG TABLET TO TOTAL 30 MG DAILY (Patient not taking: Reported on 11/13/2022) CITALOPRAM 10 MG TAB Take one(1) tablet daily. (Patient not taking: Reported on 11/13/2022) DILTIAZEM SR 120 MG 24 HR CAP Take one(1) tablet daily. (Patient not taking: Reported on 11/13/2022) DIVALPROEX 500 MG TAB, DELAYED RELEASE Take two(2) tablets twice daily. (Patient not taking: Reported on 11/13/2022) HALOPERIDOL 5 MG TAB Take one(1) tablet two(2) times daily. (Patient not taking: Reported on 11/13/2022) ISOSORBIDE DINITRATE 20 MG TAB Take one(1) tablet two(2) times daily. ( 9 am AND 4 pm ) (Patient not taking: Reported on 11/13/2022) POTASSIUM CHLORIDE SR 10 MEQ TAB Take one(1) tablet daily. (Patient not taking: Reported on 11/13/2022) TOPIRAMATE 100 MG TAB Take one(1) tablet two(2) times daily. (Patient not taking: Reported on 11/13/2022) TRIAMTERENE-HYDROCHLOROTHIAZIDE 37.5 MG-25 MG TAB Take one(1) tablet daily. (Patient not taking: Reported on 11/13/2022) QUETIAPINE 300 MG TAB Take one(1) tablet at bedtime. (Patient not taking: Reported on 11/13/2022) QUETIAPINE 300 MG TAB Take one(1) tablet in the morning. (Patient not taking: Reported on 11/13/2022) 0 HISTORIES No past medical history on file. No past surgical history on file. No family history on file. SOCIAL HISTORY Social History Tobacco Use Smoking status: Never Smokeless tobacco: Never Substance Use Topics Alcohol use: Never Drug use: Never BP 125/85 Ht 177.8 cm (5' 10) Wt (!) 143.8 kg (317 lb) BMI 45.48 kg/m? Physical Exam Genitourinary: Comments: Normal scrotal exam, no pain on palpation ASSESSMENT/PLAN: 1. Other hydrocele - ICD9: 603.8, ICD10: N43.2 Doing well, f/u prn Ida Herrera APRN.ENGLISH PROFESSOR This note was partially created using voice recognition software and is inherently subject to errors including those of syntax and sound-alike substitutions which may escape proofreading. In such instances, original meaning may be extrapolated by contextual derivation.[facility] 11-13-2022 History of Present illness Narrative* Ida Herrera APRN.CNP - 11/13/2022 9:13 AM EDT Images from the original note were not included. [facility] ESTABLISHED PATIENT OFFICE VISIT Patient presents with: Follow Up: Patient here for 1 year f/u. Possible scrotal problem. HISTORY OF PRESENT ILLNESS Geremias Galeano is a 57 year old male who is here for follow up of hydrocele. Pt is doing well, no testicular pain or discomfort. No bothersome LUTS or hematuria. Review of Systems Constitutional: Negative for appetite change. HENT: Negative for sneezing. Respiratory: Negative for cough. Cardiovascular: Negative for chest pain. Gastrointestinal: Negative for nausea and vomiting. Skin: Negative for rash. Neurological: Negative for facial asymmetry. The remainder of the ROS was reviewed and is negative. LAB Creatinine Date Value Ref Range Status 01/08/2022 0.72 (L) 0.73 - 1.22 mg/dL Final No results found for: PSA, PSASC No results found for: UGLUCPOC, UBILIPOC, UKETONPOC, USGPOC, UHBPOC, UPHPOC, UPROPOC,UUROPOC, UNITPOC, UWBCPOC, UCOLPOC, UCLARPOC] MEDICATIONS acetaminophen (TYLENOL) 325 mg tablet Take 325 mg by mouth every 6 hours as needed. aspirin 81 mg chewable tablet as directed. JARDIANCE 10 mg tablet famotidine (PEPCID) 20 mg tablet LANTUS SOLOSTAR U-100 INSULIN 100 unit/mL (3 mL) furosemide (LASIX) 20 mg tablet lactulose 10 gram/15 mL solution metoprolol succinate ER (TOPROL XL) 50 mg 24 hr tablet nitroglycerin sublingual (NITROQUICK) 0.4 mg SL tablet as directed. senna-docusate (SENNA-S) 8.6-50 mg per tablet 1 tablet as needed Orally Twice a day CLOZAPINE 25 MG TAB Take THREE (3) tablets four (4) times daily. FLUTICASONE 50 MCG/ACTUATION NASAL SPRAY, SUSP ONE SPRAY IN EACH NOSTRIL DAILY METFORMIN 500 MG TAB Take one(1) tablet two(2) times daily. (BREAKFAST AND DINNER) ATORVASTATIN 10 MG TAB Take one(1) tablet at bedtime. (Patient not taking: Reported on 11/13/2022) BENZTROPINE 1 MG TAB Take one(1) tablet two(2) times daily. (Patient not taking: Reported on 11/13/2022) CITALOPRAM 20 MG TAB Take one(1) tablet daily. TAKE WITH ONE 10 MG TABLET TO TOTAL 30 MG DAILY (Patient not taking: Reported on 11/13/2022) CITALOPRAM 10 MG TAB Take one(1) tablet daily. (Patient not taking: Reported on 11/13/2022) DILTIAZEM SR 120 MG 24 HR CAP Take one(1) tablet daily. (Patient not taking: Reported on 11/13/2022) DIVALPROEX 500 MG TAB, DELAYED RELEASE Take two(2) tablets twice daily. (Patient not taking: Reported on 11/13/2022) HALOPERIDOL 5 MG TAB Take one(1) tablet two(2) times daily. (Patient not taking: Reported on 11/13/2022) ISOSORBIDE DINITRATE 20 MG TAB Take one(1) tablet two(2) times daily. ( 9 am AND 4 pm ) (Patient not taking: Reported on 11/13/2022) POTASSIUM CHLORIDE SR 10 MEQ TAB Take one(1) tablet daily. (Patient not taking: Reported on 11/13/2022) TOPIRAMATE 100 MG TAB Take one(1) tablet two(2) times daily. (Patient not taking: Reported on 11/13/2022) TRIAMTERENE-HYDROCHLOROTHIAZIDE 37.5 MG-25 MG TAB Take one(1) tablet daily. (Patient not taking: Reported on 11/13/2022) QUETIAPINE 300 MG TAB Take one(1) tablet at bedtime. (Patient not taking: Reported on 11/13/2022) QUETIAPINE 300 MG TAB Take one(1) tablet in the morning. (Patient not taking: Reported on 11/13/2022) 0 HISTORIES No past medical history on file. No past surgical history on file. No family history on file. SOCIAL HISTORY Social History Tobacco Use Smoking status: Never Smokeless tobacco: Never Substance Use Topics Alcohol use: Never Drug use: Never BP 125/85 Ht 177.8 cm (5' 10) Wt (!) 143.8 kg (317 lb) BMI 45.48 kg/m Physical Exam Genitourinary: Comments: Normal scrotal exam, no pain on palpation ASSESSMENT/PLAN: 1. Other hydrocele - ICD9: 603.8, ICD10: N43.2 Doing well, f/u prn Ida Herrera APRN.ENGLISH PROFESSOR This note was partially created using voice recognition software and is inherently subject to errors including those of syntax and sound-alike substitutions which may escape proofreading. In such instances, original meaning may be extrapolated by contextual derivation. [facility] in [facility] note Future Appointments Appointment Date:05/19/2024 02:00:00 PM Scheduled Provider:RIA HARDING Location:[facility] Appointment Type:[facility] Future Scheduled Tests Laboratory* N-Terminal proBNP 10/27/23 [facility] Evaluation note* Diagnosis Other hydrocele documented in this encounter [facility] note* Diagnosis Onset Date Resolution Status Admit Date Abdominal pain acute July 25, 2024 8:29am Hx of cholecystectomy acute July 25, 2024 8:29am Personal history of colonic polyps a cute July 25, 2024 8:29am [facility] Work Phone: Hospital course Narrative No data available for this section [facility] Hospital Discharge instructions No data available for this section [facility] Progress note No data available for this section [facility] Progress note Author Lou Paulino [facility] Note Date/Time July 25, 2024 9:08a m [facility] [address] [place] [address] OFFICE VISIT Date of Service: 07/25/24 MR#: [id number] Acct: [id number] Name: GEREMIAS GALEANO Rep #: [id number] : 1965 Provider: SHEILA Paulino Age/Sex: 58/M [place] [facility] Status: Signed Intake Vital Signs 07/25/24 08:48 Height 6 ft Weight: 300 lb BMI 40.6 BP 127/85 H Respiration 20 H Pulse 103 H Pulse Oximetry (%) 93 Oxygen Delivery Method room air Intake Visit Reasons: Pre colon Furnace Erector Required: No Accompanied by: Caregiver Is patient in pain?: No Allergies No Known Allergies Allergy (Unverified 07/25/24 08:35) Medications ?Medication ?Instructions ?Recorded ?Confirmed ?Type divalproex 500 mg tablet,delayed 500 mg PO .QD 5 07/24/24 History release (Depakote) famotidine 20 mg tablet 20 mg PO QDAY 07/24/2407/24 History metformin 500 mg tablet 500 mg PO BID 07/24/2407/24 History nitroglycerin 0.4 mg sublingual 0.4 mg sublingual Q5M PRN 07/24/24 07/24/24 History tablet potassium chloride 20 mEq 20 meq PO QDAY 07/24/2407/06 History tablet,extended release(part/cryst) (Klor-Con M) sennosides 8.6 mg capsule (senna) 8.6 mg PO QDAY PRN 0 07/24/24 07/24/24 History budesonide-formoterol HFA 160 2 puff inhalation BID 07/25/24 History mcg-4.5 mcg/actuation aerosol inhaler (Symbicort) cholecalciferol (vitamin D3) 25 50 mcg PO QDAY 5 07/25/24 History mcg (1,000 unit) capsule clozapine 200 mg tablet 500 mg PO .QD 07/25/2407/25 History duloxetine 20 mg capsule,delayed 40 mg PO QDAY 5 07/25/24 History release (Cymbalta) empagliflozin 25 mg tablet 25 mg PO QDAY 07/25/2407/07 History (Jardiance) fenofibrate nanocrystallized 48 mg 48 mg PO QDAY 07/2507/25/24 History tablet furosemide 20 mg tablet 20 mg PO QDAY 07/25/2407/25 History insulin glargine 100 unit/mL (3 25 unit subcut QDAY 07/25/24 History mL) subcutaneous pen (Lantus Solostar U-100 Insulin) lactulose 10 gram/15 mL oral 30 g PO BID 07/25/2407/07 History solution metoprolol tartrate 50 mg tablet 50 mg PO QDAY 5 07/25/24 History sacubitril 97 mg-valsartan 103 mg 1 tab PO BID 07/25/24 History tablet (Entresto) Nurse's Note: Not having any problems with bowels. Some abdominal discomfort. [facility] Medical History GERD without esophagitis Bipolar disorder COPD (chronic obstructive pulmonary disease) Asymptomatic gallstones Unintentional weight loss Hyperplastic colon polyp Type 2 diabetes mellitus Osteoarthritis DOMENICO (obstructive sleep apnea) Schizophrenia Hyperlipidemia Angina pectoris HPI HPI Details: GEREMIAS GALEANO, is a 58 M who presents to the office today for 10/19/2019 Colon (rectal hyperplastic) & EGD (unremarkable) 2019 - recall 5-10 years - seen in office today with FACE BURLER from [facility] - denies family h/o colon CA - reports he has had intermittent epigastric abdominal pain ever since CCX - epigastric burning pain, exacerbated with participating in activities, denies any radiation of pain - denies any N/V - denies any dysphagia - denies any bleeding - he has a BM daily, denies any constipation or diarrhea - denies any weight loss - he takes Famotidine 20mg QD - denies any pain with eating - h/o PEG ROS Const Constitutional: Positive for headache(s); No fatigue, fever(s) or weight change ENT ENT: Positive for headache(s); No difficulty swallowing Gastro GI: No abdominal pain, belching, bloating, change in bowel habits, change in stool character, coffee ground emesis, constipation, cramping, diarrhea, heartburn, difficulty swallowing, feeling full early, excessive flatus, incontinent of stools, Vomiting blood/hematemesis, Blood in stool, loose stools,Black,tarry stools, nausea/dyspepsia, pain with swallowing, vomiting or other Musc Musculoskeletal: No joint pain Skin Skin: No yellowing of the eye or itchy eyes Neuro Neurology: Positive for headache(s) Psych Psychiatric: No anxiety and No depression Endo Endocrine: No fatigue or weight change Aller/Imm Allergy/Immunologic: No itchy eyes Bravo/Lymp Hematologic/Lymphatic: No easy bleeding or easy bruising Exam Const General: cooperative, healthy appearing, no acute distress and well developed Nutritional Appearance: well nourished and obese Orientation: alert and oriented x3 HENMT Head: normocephalic Ears: hearing grossly normal bilaterally Mouth: moist mucous membranes Eyes Conjunctivae: conjunctivae normal Sclera: sclerae normal Neck Neck: normal visual inspection, full ROM and trachea midline Resp Effort & Inspection: normal respiratory effort, able to speak in complete sentences and symmetric chest movement Auscultation: Bilateral: Clear to Auscultation (upper lobes) and Rhonchi (bilateral bases) Cardio Rate: regular rate Rhythm: regular rhythm Heart Sounds: S1 normal and S2 normal GI Inspection: normal to inspection and obesity Auscultation: normal bowel sounds Palpation: soft and no hepatosplenomegaly Rectal Exam: deferred Other: ABD round, non-distended Skin General: no rashes or lesions noted and turgor normal Neuro General: patient alert and patient oriented x3 Cranial Nerves: other (CN's grossly intact, non-focal exam) Cognition: normal cognition Speech: speech normal Gait: normal gait Extrem General: normal to inspection (no edema noted) Psych Appearance: grossly normal and well kempt Mood: congruent mood Affect: normal affect Speech and Movement: speech and movement normal Attitude: cooperative Thought Process: normal Assessment and Plan Assessment and Plan (1) Abdominal pain: Status: Acute Qualifiers: Abdominal location: epigastric Qualified Code(s): R10.13 - Epigastric pain (2) Personal history of colonic polyps: Status: Acute Comment: 10/2019 hyperplastic rectal polyp (3) Hx of cholecystectomy: Status: Acute Orders: Orders Abdomen Limited Today R10.9 - Unspecified abdominal pain Plan 58-year-old male presents for initial consultation for screening colonoscopy. PMH is significant for HFpEF, cardiomyopathy, hypertension, COPD, hyperlipidemia, type 2 diabetes, GERD, cholecystectomy, morbid obesity, and paranoid schizophrenia. He resides at [facility]. Colonoscopy and EGD were last performed in 2019. EGD was unremarkable and colonoscopy revealed a rectal hyperplastic polyp. Labs completed 05/23/2024 reveal hemoglobin 15.6, PLT 266, A1c 8.1. Transaminases were unremarkable 04/24/2024. He denies any change in bowel habits, weight loss, or bleeding. He denies any family history of colon cancer or colonoscopy prior to 2019. Based on screeningguidelines I recommend a repeat colonoscopy in 2029. He does endorse mild intermittent epigastric abdominal pain with movement. Denies any nausea, vomiting, heartburn, or dysphagia. I recommend an abdominal ultrasound and follow-up in office in 6 weeks. Note: Showpad speech recognition die attacher software was used to create portions of this document. Sound-alike and misspelled words, as well as other die attacher errors may be contained in the documentation. Patient Instructions: Abdominal US, call [phone] to schedule Follow-up in office in 6 weeks Recall colonosocpy in 2029, sooner for symptoms (i.e. pain, bleeding, change in bowel habits, unexplained weight loss) Smoking cessation recommended - https://www.cdc.gov/tobacco/about/how-to-quit.html Coding Level of Care Code Off vis,new,level 4 Diagnoses Epigastric pain R10.13 Abdominal location: epigastric Personal history of colonic polyps Z86.0100 Hx of cholecystectomy Z90.49 Clinical Quality Measures Smoking Screening Smoking Status: Current every day smoker Tobacco counseling given: Smoking cessation education 07/25/24 0908 <Electronically signed by Lou SOSA> Date _ Lou SOSA Cosigner Signature: Date (if applicable) CC: ~ [facility] Work Phone: Reason for referral (narrative)No reason for referral information availableGlenn [facility] Center Work Phone: Summary Purpose Family History No Family History Records FoundNo Family History Records FoundNo Family History Records FoundNo Family History Records FoundNo Family History Records Found No data available for this section No Family History Records Found No data available for this section No Family History Records FoundNo Family History Records FoundNo Family History Records Found Advance Directives No Advanced Directives Records FoundNo Advanced Directives Records FoundNo Advanced Directives Records FoundNo Advanced Directives Records FoundNo Advanced Directives Records FoundNo Advanced Directives Records FoundNo Advanced Directives Records FoundNo Advanced Directives Records FoundNo Advanced Directives Records Found Chief Complaint and Reason for Visit Chief Complaint Admit Date Pre colon July 25, 2024 8:29a m ABDOMINAL PAIN, INCLUDE SPLEEN August 9:08am Reason for Visit Admit Date Abdominal pain July 25, 2024 8:29a m Hx of cholecystectomy July 25, 2024 8:2 9am Personal history of colonic polyps July 072024 8:29am Chief Complaint Admit Date Pre colon July 25, 2024 8:29a m Additional Source Comments (unrecognized sect ion and content) No Status Records FoundNo Status Records FoundNo Status Records FoundNo Status Records FoundNo Status Records FoundNo Status Records FoundNo Status Records FoundNo Status Records FoundNo Status Records Found INFORMATION SOURCE (unrecogn ized section and content) DATE CREATED AUTHOR [facility]/2017 [facility] DATE CREATED AUTHOR AUTHOR'S ORGANIZ ATION 11/14/2019 [facility] ([place]) DATE CREATED AUTHOR AUTHOR'S ORGANIZ ATION 08/09/2020 [facility] ([place]) DATE CREATED AUTHOR AUTHOR'S ORGANIZ ATION 02/12/2021 [facility] DATE CREATED AUTHOR AUTHOR'S ORGANIZ ATION 11/17/2022 [facility] DATE CREATED AUTHOR AUTHOR'S ORGANIZ ATION 04/19/2024 [facility] DATE CREATED AUTHOR AUTHOR'S ORGANIZ ATION 08/05/2024 [facility] DATE CREATED AUTHOR AUTHOR'S ORGANIZ ATION 08/14/2024 [facility] DATE CREATED AUTHOR AUTHOR'S ORGANIZ ATION 09/05/2024 [facility] Source Comments (unrecognize d section and content) In the event this informatio n is protected by the Federal Confidentiality of Alcohol and Drug Abuse Patient Records regulations: The Federal rules restrict any use of the information to criminally investigate or prosecute any alcohol or drug abuse patient.[facility] Reason for Visit (unrecogniz ed section and content) Reason Comments Follow Up Patient here for 1 y ear f/u. Possible scrotal problem. Patient Care team informatio n (unrecognized section and content) Team Status: Active Member Role Status Dates Dr. Rhina Duncan MD Family Provider Active Dr. Rhina Duncan MD Primary Care Provider Active Team Status: Inactive Member Role Status Dates Dr. Rhina Duncan MD Primary Care Provider Active Start: July 25, 2024 End: July 25, 2024 Dr. Rhina Duncan MD Referring Provider Active Start: July 25, 2024 End: July 25, 2024 SHEILA Molina Attending Provider Active Start: July 25, 2024 End: July 25, 2024 Team Status: Active Member Role Status Dates Dr. Rhina Duncan MD Primary Care Provider Active Team Status: Inactive Member Role Status Dates Dr. Rhina Duncan MD Primary Care Provider Active Start: August 28, 2024 End: August 28, 2024 SHEILA Molina Attending Provider Active Start: August 28, 2024 End: August 28, 2024 SHEILA Molina Referring Provider Active Start: August 28, 2024 End: August 28, 2024 Goals (unrecognized section and content) Goals may be documented in a n alternate section FOR RECORDS PERTAINING TO PATIENTS WHO ARE OR HAVE BEEN ENROLLED IN A CHEMICAL DEPENDENCY/SUBSTANCEABUSE PROGRAM, SOME INFORMATION MAY BE OMITTED. This clinical summary was aggregated from multiple sources. Caution should be exercised in using it in the provision of clinical care. This summary normalizes information from multiple sources, and as a consequence, information in this document may materially change the coding, format and clinical context of patient data. In addition, data may be omitted in some cases. CLINICAL DECISIONS SHOULD BE BASED ON THE PRIMARY CLINICAL RECORDS. [facility] [employer] [facility]. provides no warranty or guarantee of the accuracy or completeness of information in this document.
== END | disposition home or self-care (01) ==
LOC: US 08:00
PROVIDERS: PCP Internal Medicine Infectious Disease; Referring Provider Nurse Practitioner Acute Care; Visit Provider Nurse Practitioner Acute Care
DX: K76.0 Fatty (change of) liver, not elsewhere classified (principal)
CPT/HCPCS: 76981

== ENCOUNTER → 2024-09-11 | Outpatient (CLI) | payer MEDICAID, SELFPAY ==
[2024-09-11 10:13] LABS: Hepatitis B Surface Antigen Nonreactive (Nonreactive); Hepatitis C Antibody Nonreactive (Nonreactive)
[2024-09-11 10:14] LABS: AST(SGOT) 37 U/L (<=37); Alanine Aminotransfer ALT/SGPT 49 U/L (<=46); Albumin, Serum 4.4 g/dL (3.5-5.0); Alkaline Phosphatase 98 U/L (40-129); Anion Gap 15 (5-15); BUN 11 mg/dL (4-19); BUN/Creat Ratio 11.8 RATIO (10-20); Bilirubin, Direct < 0.08 mg/dL (0.00-0.30); Calcium,Total 9.5 mg/dL (7.6-11.0); Carbon Dioxide 23.4 mmol/L (21.0-32.0); Chloride 98 mmol/L (98-108); Globulin 3.3 g/dL (2.2-4.2); Glucose 284 mg/dL (70-99); Potassium 4.5 mmol/L (3.3-5.1)
== END | disposition home or self-care (01) ==
LOC: LAB 08:44
PROVIDERS: PCP Internal Medicine Infectious Disease; Referring Provider Nurse Practitioner Acute Care; Visit Provider Nurse Practitioner Acute Care
DX: K76.0 Fatty (change of) liver, not elsewhere classified (principal)
CPT/HCPCS: 80048; 80076; 86704; 86706; 86708; 86803; 87340

== ENCOUNTER 2025-01-11 07:39 | Day surgery (SDC) | payer MEDICAID, SELFPAY ==
--- NOTE | 2024-12-14 14:49 | PAT.ANE_ITS ---
Pre-Assessment Diagnosis/Proposed Procedure Planned Operative Procedure(s): EGD Anesthesia History Anesthesia History - service representative: Anesthesia History - service representative Hx Hospitalization No 12/12/24 13:17 Any Problems With Anesthesia No 12/12/24 13:17 Cholinesterase deficiency No 12/12/24 13:17 You/Your Family Experience No 12/12/24 13:17 fever (hyperthermia) with Relationship Recent Exposure to Contagious Disease Does patient have nerve No 12/12/24 13:17 stimulator Patient instructed to have device shut off --Does patient have Pacemaker or ICD? When Was Last Pacemaker Check QUESTION #4 FULL TEXT: You/Your Family Experience fever (hyperthermia) with Anesthesia Last Oral Intake Last Oral intake: Last Oral Intake NPO since Meds taken in AM with sips of water? Meds patient instructed to take am of surgery PONV PONV - service representative: PONV - service representative Female No 12/12/24 13:17 HX of Motion Sickness No 12/12/24 13:17 HX of N/V After Surgery No 12/12/24 13:17 Non-Smoker No 12/12/24 13:17 Duration of Surgery greater No 12/12/24 13:17 than 60 minutes Number of Risk Factors PONV Score Height & Weight Height & Weight: Anesthesia: Height & Weight Height 6 ft 11/09/24 13:49 Respiratory Assessment Respiratory Assessment - service representative: Respiratory Tract Infection Hx - service representative Hx Respiratory Tract Infection No 12/12/24 13:17 STOP Sleep Apnea STOP Sleep Apnea - service representative: STOP Sleep Apnea - service representative Hx Hypertension Yes 12/12/24 13:17 Hx Sleep Apnea Yes: NON COMPLIANT 12/12/24 13:17 CPAP No 12/12/24 13:17 BIPAP No 12/12/24 13:17 Do you snore loudly (louder than talking or can be heard Do you often feel tired/ fatigued/ sleepy during daytime? Has anyone observed you stop breathing during sleep? STOP Results Positive 12/12/24 13:17 QUESTION #5 FULL TEXT : Do you snore loudly (louder than talking or can be heard through closed doors)? Tobacco Use History Tobacco Use History - service representative: Tobacco Use History - service representative Tobacco Use Smoking Status Light Smoker (<10/day) 12/12/24 13:17 Hx Tobacco Use Yes 12/12/24 13:17 Years Smoking Packs Smoked per Day 0.25 12/12/24 13:17 Smoking Cessation Date was within the last 15 years Hx Smoking Cessation Date Hx Smoking Cessation Counseling Hematologic Medial History Hematologic Hx - service representative: Hematologic Medical Hx - community development coordinator Hx of Blood Transfusion No 12/12/24 13:17 Hx of Transfusion in last 3 No 12/12/24 13:17 Months Date of Last Transfusion (if within last 3 months) Ever experience any problems No 12/12/24 13:17 with transfusion(s)? Specify any problems Hx of Preganancy in last 3 N/A 12/12/24 13:17 Months Nurse Filling Out Transfusion NBUCHER 12/12/24 13:17 & Questions: Date: 12/12/24 12/12/24 13:17 Time: 13:18 12/12/24 13:17 Patient unable to answer at this time (ie. confused, unrespo /Reproduction History /Reproductive History - service representative: /Reproductive Hx- service representative Hx Now No 12/12/24 13:17 Gestational Age (in weeks): EDC: Hx Hx Para Hx Section SAB No 12/12/24 13:17 [facility] Medical History (Updated 12/14/24 @ 14:05 by Candida Luna) Cardiology follow-up encounter Lymphedema Schizoaffective disorder GERD (gastroesophageal reflux disease) Diabetes Gastric reflux Smoker Asthma History of echocardiogram History of CHF (congestive heart failure) Hypertension Eosinophilic esophagitis Thrombocytopenia GERD without esophagitis Bipolar disorder COPD (chronic obstructive pulmonary disease) Asymptomatic gallstones Unintentional weight loss Hyperplastic colon polyp Type 2 diabetes mellitus Osteoarthritis DOMENICO (obstructive sleep apnea) Schizophrenia Hyperlipidemia Angina pectoris Home Medications Medication Instructions Recorded Last Taken Type budesonide-formoterol HFA 160 2 puff inhalation BID Unknown History mcg-4.5 mcg/actuation aerosol inhaler (Symbicort) cholecalciferol (vitamin D3) 25 50 mcg PO QDAY 5 Unknown History mcg (1,000 unit) capsule clozapine 100 mg tablet (Clozaril) 500 mg PO QHS 09/11 Unknown History divalproex 500 mg tablet,delayed 1,000 mg PO QHS 09/11 Unknown History release (Depakote) duloxetine 20 mg capsule,delayed 40 mg PO QDAY 5 Unknown History release (Cymbalta) empagliflozin 25 mg tablet 25 mg PO QDAY 09/11/24 Unkn own History (Jardiance) famotidine 20 mg tablet 20 mg PO BID 09/11/24 Unknow n History fenofibrate 40 mg tablet 48 mg PO QDAY 09/11/24 Unkno wn History furosemide 20 mg tablet (Lasix) 20 mg PO QDAY 09/11/24 Unknown History insulin glargine 100 unit/mL (3 25 unit subcut DAILY 0 09/11/24 Unknown History mL) subcutaneous pen (Lantus Solostar U-100 Insulin) lactulose 10 gram/15 mL oral 20 g PO BID 09/11/24 Unkn own History solution metformin 500 mg tablet 500 mg PO BID 09/11/24 Unkno wn History metoprolol succinate 50 mg 50 mg PO QDAY 09/11/24 Unkn own History tablet,extended release 24 hr nitroglycerin 0.4 mg sublingual 0.4 mg sublingual Q5-1 5M PRN chest 09/11/24 Unknown History tablet pain potassium chloride 20 mEq 20 meq PO QDAY 09/11/24 Unkn own History tablet,extended release(part/cryst) (Klor-Con M) sacubitril 97 mg-valsartan 103 mg 1 tab PO BID 5 Unknown History tablet (Entresto) sennosides 8.6 mg-docusate sodium 2 tab-cap PO BID 09/29 Unknown History 50 mg capsule (Senna Plus) vitamin E (dl, acetate) 180 mg 180 mg PO BID #90 caps 11/09/24 Unknown Rx (400 unit) capsule dulaglutide 0.75 mg/0.5 mL 0.75 mg subcut WE 12/12/24 Unknown History subcutaneous pen injector (Trulicity) Allergy/AdvReac Type Severity Reaction Status Date / Time No Known Allergies Allergy Verified 12/12/24 13:14 Family History Father Cancer Lung and Brain Grandmother Cancer Brain Mother Hypertension Surgical History History of percutaneous endoscopic gastrostomy (PEG) History of colonoscopy History of esophagogastroduodenoscopy (EGD) History of surgery on upper extremity History of surgery on lower extremity H/O arthroscopy of hip H/O vasectomy Social History household members: spouse current occupational status: employed Smoking Status: Light Smoker (<10/day) alcohol intake: current substance use type: does not use caffeine: Yes frequency: 5-6 times per week Audit: Pertinent Findings Pertinent Findings Echo (EF%) pertinent findings: 04/21/2021 preserved ejection fraction. EF 50 to 55%. Consult pertinent findings: Cardiology 07/05/2024. Cardiomyopathy. Nonischemic. Stable will check echocardiogram. History of heart failure with preserved ejection fraction. Continue Lasix. Recommendation Anesthesia Recommendation Anesthesia recommendation: OPTIMIZED for anesthesia
[2025-01-11] VITALS (9 sets, daily range): BP systolic 107–123; BP diastolic 75–86; PULSE 80–91; RESP 16–20; TEMP 36.2–36.4; O2SAT 93–100; BMI 41.0
[2025-01-11] MEDS: Lactated Ringers 1,000 ML 15 ML IV (08:30)
--- NOTE | 2025-01-11 08:36 | PCM.HP.STD ---
HPI - General General Date of Admission: 01/11/25 Date of Service: 01/11/25 Chief Complaint: GERD HPI Narrative GEREMIAS GALEANO, is a 59 M who presents [ Chief Complaint: Liver steatosis . Earlier patient saw Lou Paulino in July and September 2024. Patient lives in [facility] for last 22 years Also he residential facility before that because of the mental health and mild cognitive deficit. Patient has schizophrenia and bipolar disorder. As per the psychiatric nursing aide, patient had gallbladder problem and was morbid obese but after surgery he got scared of food and he became very malnourished. He had PEG tube and then became morbidly obese and PEG tube was removed. Patient was 312 pounds in September 2023 currently 301 pounds. Denies any particular symptoms abdominal pain, nausea/vomiting. Right leg is chronically more swollen than left probably from knee issues in the past and arthroscopy. Patient on multiple medications including clozapine, divalproex which have potential for weight gain Social history: Started smoking as a high school. Currently smokes 6 cigarettes/day. Alcohol: Started drinking in the high school about 1 bottle of vodka in 1 month on weekends between 2 of them. Not a big alcoholic. Patient has been receiving skilled facility for more than 25 years. Substance use: Denies it Family history: Denies first-degree family related of liver disease or autoimmune disease ] [facility] Medical History Cardiology follow-up encounter Lymphedema Schizoaffective disorder GERD (gastroesophageal reflux disease) Diabetes Gastric reflux Smoker Asthma History of echocardiogram History of CHF (congestive heart failure) Hypertension Eosinophilic esophagitis Thrombocytopenia GERD without esophagitis Bipolar disorder COPD (chronic obstructive pulmonary disease) Asymptomatic gallstones Unintentional weight loss Hyperplastic colon polyp Type 2 diabetes mellitus Osteoarthritis DOMENICO (obstructive sleep apnea) Schizophrenia Hyperlipidemia Angina pectoris Home Medications Medication Instructions Recorded Last Taken Type budesonide-formoterol HFA 160 2 puff inhalation BID 09/11/24 01/10/25 History mcg-4.5 mcg/actuation aerosol inhaler (Symbicort) cholecalciferol (vitamin D3) 25 50 mcg PO QDAY 09/11/24 01/10/25 History mcg (1,000 unit) capsule clozapine 100 mg tablet (Clozaril) 500 mg PO QHS 09/11/24 01/10/25 History divalproex 500 mg tablet,delayed 1,000 mg PO QHS 09/11/24 01/10/25 History release (Depakote) duloxetine 20 mg capsule,delayed 40 mg PO QDAY 09/11/24 01/10/25 History release (Cymbalta) famotidine 20 mg tablet 20 mg PO BID 09/11/24 01/10/25 History fenofibrate 40 mg tablet 48 mg PO QDAY 09/11/24 01/11/25 History furosemide 20 mg tablet (Lasix) 20 mg PO QDAY 09/11/24 01/10/25 History insulin glargine 100 unit/mL (3 40 unit subcut DAILY 09/11/24 01/10/25 History mL) subcutaneous pen (Lantus Solostar U-100 Insulin) lactulose 10 gram/15 mL oral 20 g PO BID 09/11/24 01/10/25 History solution metformin 500 mg tablet 500 mg PO BID 09/11/24 01/10/25 History nitroglycerin 0.4 mg sublingual 0.4 mg sublingual Q5-15M PRN chest 09/11/24 Unknown History tablet pain potassium chloride 20 mEq 20 meq PO QDAY 09/11/24 01/10/25 History tablet,extended release(part/cryst) (Klor-Con M) sacubitril 97 mg-valsartan 103 mg 1 tab PO BID 09/11/24 01/10/25 History tablet (Entresto) sennosides 8.6 mg-docusate sodium 2 tab-cap PO BID 09/11/24 01/10/25 History 50 mg capsule (Senna Plus) vitamin E (dl, acetate) 180 mg 180 mg PO BID #90 caps 11/09/24 01/10/25 Rx (400 unit) capsule dulaglutide 0.75 mg/0.5 mL 0.75 mg subcut WE 12/12/24 01/10/25 History subcutaneous pen injector (Trulicity) metoprolol succinate 100 mg 100 mg PO DAILY 01/11/25 01/10/25 History tablet,extended release 24 hr Allergy/AdvReac Type Severity Reaction Status Date / Time No Known Allergies Allergy Verified 01/11/25 08:14 Family History Father Cancer Lung and Brain Grandmother Cancer Brain Mother Hypertension Surgical History History of percutaneous endoscopic gastrostomy (PEG) History of colonoscopy History of esophagogastroduodenoscopy (EGD) History of surgery on upper extremity History of surgery on lower extremity H/O arthroscopy of hip H/O vasectomy Social History household members: spouse current occupational status: employed Smoking Status: Light Smoker (<10/day) alcohol intake: current substance use type: does not use caffeine: Yes frequency: 5-6 times per week ROS Constitutional Constitutional: Denies fatigue, fever(s), poor appetite, weight gain or weight loss Gastrointestinal Gastrointestinal: Denies belching, bloating, change in bowel habits, change in stool character, chewing difficulty, coffee ground emesis, constipation, cramping, diarrhea, dyspepsia, dysphagia, early satiety, excessive flatus, fecal incontinence, heartburn, hematemesis, hematochezia, hemorrhoids, loose stools, melena, nausea, odynophagia, rectal bleeding, tenesmus, vomiting or weight changes Vital Signs Vital Signs Vital Signs: 01/11/25 08:22 01/11/25 08:22 Temperature 97.5 F L Temperature Source Temporal Pulse Rate 86 Respiratory Rate 20 H Respiratory Pattern Normal Blood Pressure 108/75 Blood Pressure Mean 86 Blood Pressure Source Monitor Blood Pressure Position Semi-Fowlers Blood Pressure Location Right Arm Pulse Ox 93 Oxygen Delivery Method Room Air Weight Weight: 302 lb 11.115 oz Body Mass Index (BMI) 41.0 Physical Exam Const alert, oriented x3, no apparent distress and healthy appearing General Appearance: cooperative GI normal to inspection, nondistended, normoactive bowel sounds, soft to palpation, non-tender and non-distended Percussion: normal to percussion Rectal Exam: deferred Assessment & Plan Assessment/Plan (1) Abdominal pain: QUALIFIERS: Abdominal location: epigastric Qualified Code(s): R10.13 - Epigastric pain (2) Heartburn: PLAN: Assessment and Plan Assessment and Plan (1) Metabolic dysfunction-associated steatotic liver disease (MASLD): Status: Acute Plan: Labs reviewed. September 2024 labs shows ALT 49, AST 37 rest of liver chemistry normal. Glucose 284. Viral hepatitis panel is negative. ELF score is 8.01 which is intermediate to moderate risk of advanced liver fibrosis. Elastography in August, shows hepatic steatosis, hepatomegaly, normal CBD and spleen. Median liver stiffness 10.1 kPa, median velocity 1.83 suggestive of compensated advanced chronic liver disease, stage F3. Labs from October 2024 reviewed. ALT 69, AST 34. Rest liver chemistry normal. Glucose 417. CBC normal, platelet 251K. Plan: 1. Patient denies family history of autoimmune disease in first-degree febrility. Comprehensive labs ordered to rule out other etiologies of liver fibrosis 2. Advised hepatitis A and B vaccine. 3. GLP-1 agonist, semaglutide/tirzepatide: Start with the lowest dose and his stay on same dosage for longer duration about 8 to 10 weeks before increasing it 4. EGD 5. Weight loss strategy: Early Years Teacher consult. Decrease caloric intake including carb and fat. Increase physical activity/conditioning size. Follow-up with psychiatrist to change clozapine which is rapid to high weight gain medication to low weight gain like aripiprazole, Geodon, and Latuda. Divalproex also causes moderate weight gain. 6. Follow-up in 3 to 4-month with ABORIGINAL COMMUNITY COUNCIL MEMBER/PA and 6-month with me Orders: Orders SEBLE w/ Reflex Mult Confirm 3 Months K76.0 - Fatty (change of) liver, not elsewhere classified, R10.13 - Epigastric pain, R12 - Heartburn Comprehensive Metabolic Profil 3 Months K76.0 - Fatty (change of) liver, not elsewhere classified, R10.13 - Epigastric pain, R12 - Heartburn CBC W/Diff, Automated 3 Months K76.0 - Fatty (change of) liver, not elsewhere classified, R10.13 - Epigastric pain, R12 - Heartburn CRP 3 Months K76.0 - Fatty (change of) liver, not elsewhere classified, R10.13 - Epigastric pain, R12 - Heartburn GGTP 3 Months K76.0 - Fatty (change of) liver, not elsewhere classified, R10.13 - Epigastric pain, R12 - Heartburn Ferritin 3 Months K76.0 - Fatty (change of) liver, not elsewhere classified, R10.13 - Epigastric pain, R12 - Heartburn Thyroid Stim Hormone (TSH) 3 Months K76.0 - Fatty (change of) liver, not elsewhere classified, R10.13 - Epigastric pain, R12 - Heartburn Iron+Iron Binding Capacity 3 Months K76.0 - Fatty (change of) liver, not elsewhere classified, R10.13 - Epigastric pain, R12 - Heartburn Hemoglobin A1c 3 Months K76.0 - Fatty (change of) liver, not elsewhere classified, R10.13 - Epigastric pain, R12 - Heartburn Ceruloplasmin 3 Months K76.0 - Fatty (change of) liver, not elsewhere classified, R10.13 - Epigastric pain, R12 - Heartburn Prothrombin Time w/INR 3 Months K76.0 - Fatty (change of) liver, not elsewhere classified, R10.13 - Epigastric pain, R12 - Heartburn LDH 3 Months K76.0 - Fatty (change of) liver, not elsewhere classified, R10.13 - Epigastric pain, R12 - Heartburn Lipid Profile 3 Months K76.0 - Fatty (change of) liver, not elsewhere classified, R10.13 - Epigastric pain, R12 - Heartburn Medications: Changed From vitamin E (dl, acetate) 180 mg PO QDAY 90 caps 3RF To vitamin E (dl, acetate) 180 mg PO BID 90 caps 3RF
--- NOTE | 2025-01-11 08:45 | RAD_ITS ---
PROCEDURE: CHEST 1 VIEW (PORTABLE) 01/11/2025 REASON FOR EXAM: RHONCHI TECHNIQUE: Frontal view of the chest. COMPARISON: None FINDINGS: Hardware: None Heart: Cardiac and mediastinal contours are stable. Lungs: Elevation of the right hemidiaphragm. Patchy infiltrates at both lung bases worse on the right side. Bones: Degenerative changes are identified within the thoracic spine. RAD/Chest 1 View (Portable) IMPRESSION: Patchy bibasilar infiltrates more prominent at the right lung base. Reading Location: [id number]
--- NOTE | 2025-01-11 09:00 | EGD_PTH ---
PATIENT: GEREMIAS GALEANO LOC: EN U#:[id number] AGE/SX: 59/M ROOM: RE01/11/[address]: Dr. Obed Hollis DO : 1965 BED: DIS: 01/11/2025 SPEC #: [id number] RECD: 01/11/25 10:20 STATUS: SILVINA JUSTINO #: [id number] BLAZE: 01/11/25 09:[address]: Obed Hollis DEPT: SURGICAL PATHOLOGY RECD BY: Emile Torres ENTERED: 01/11/25 11:43 SP TYPE: EGD BIOPSY POOL DR: Dr. Rhina Garces MD Tissues: A - Esophagus, NOS Procedures: Surgery Specimen Level IV HEADER OPERATION: EGD, biopsy PRE-OP DIAGNOSIS: Metabolic dysfunction- associated steatotic liver disease TISSUE SUBMITTED: A- Distal esophagus biopsy MICROSCOPIC DIAGNOSIS A. Distal esophagus, biopsy: - Columnar mucosa negative for goblet cell metaplasia. - Pancreatic acinar metaplasia. - Negative for dysplasia. MICROSCOPIC DESCRIPTION Slides are reviewed. GROSS DESCRIPTION A. Received in fixative is one container labeled with the patient's name and designated "Distal esophagus biopsy." The specimen consists of two irregular fragments of peoples tissue that measure 0.6 and 0.7 cm. The specimen is totally submitted in one cassette. MO 01/11/2025 CPT:91059
--- NOTE | 2025-01-11 09:34 | PRE.ANES_ITS ---
ASA Classification* ASA Classification ASA Classification: 4 (HTN, GERD, DOMENICO, very BAD COPD (duoneb given preop), Asthma, CHF, cardiomyopathy. Physical exam showing b/l rhonchi. ) Assessment & Plan Anesthesia* Anesthesia Assessment Anesthesia Assessment: Discussed sedation and/or anesthesia options, risks, benefits, and alternatives with patient/parents/legal guardian/POA. Questions invited. The patient/parents/legal guardian/POA seems to understand and agrees to proceed with anesthesia plan. Reviewed the physical assessment, medical history, allergy history and patient home medications list prior to surgery/procedure/anesthetic and documented any changes. Performed airway and anesthesia risk assessments. I had a thorough discussion with the patient, as well as the guardian that the patient has risks for anesthesia, including some vascular congestion seen on CXR, bad COPD. The patient is satting 97% on RA. I had a thorough discussion with Dr. Hollis regarding the patient. Given that this is the patient's baseline status after review of records, it would be prudent to proceed with the case, and evaluate the patient in PACU for further diagnosis and treatment, if needed. I explained all of this to the patient/guardian who both verbalized understanding and would like to proceed with the anesthetic. Anesthesia Type Anesthesia Type: MAC History Source History Obtained from:: Parent/ Guardian ([facility] In[facility] P[facility], confirmed by Yeny Torres (RN) who also verified consent with Génesis directly .) Anesthesia Focused Assessment* Temperature: 97.5 F Pulse Rate: 80 Blood Pressure: 108/75 Respiratory Rate: 16 Pulse Ox: 93 Oxygen Delivery Method: Room Air Airway Assessment Mouth opens: >3 cm Mallampati Score: IV Teeth Condition: Missing Neck Range of motion (ROM): Full ROM Labs Anesthesia Preop lab: CBC CHEMISTRY Potassium, (3.3-5.1) 4.5 mmol/L 09/11/24, 08:53 Sodium, (133-145) 136 mmol/L 09/11/24, 08:53 BUN, (4-19) 11 mg/dL 09/11/24, 08:53 Creatinine, (0.70-1.20) 0.94 mg/dL 09/11/24, 08:53 Glucose, (70-99) 284 mg/dL H 09/11/24, 08:53 COAG Pre-Assessment Diagnosis/Proposed Procedure Planned Operative Procedure(s): EGD Anesthesia History 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 When Was Last Pacemaker Check QUESTION #4 FULL TEXT: You/Your Family Experience fever (hyperthermia) with Anesthesia Last Oral Intake Last Oral intake: Last Oral Intake NPO since 00:00 01/11/25 08:22 Meds taken in AM with sips of No 01/11/25 08:22 water? Meds patient instructed to take am of surgery PONV PONV - electronic parts designer: PONV - electronic parts designer Female No 12/12/24 13:17 HX of Motion Sickness No 12/12/24 13:17 HX of N/V After Surgery No 12/12/24 13:17 Non-Smoker No 12/12/24 13:17 Duration of Surgery greater No 12/12/24 13:17 than 60 minutes Number of Risk Factors PONV Score Height & Weight Height & Weight: Anesthesia: Height & Weight Height 6 ft 01/11/25 08:22 Weight: 137.3 kg 01/11/25 08:22 Body Mass Index (BMI) 41.0 01/11/25 08:22 Respiratory Assessment Respiratory Assessment - electronic parts designer: Respiratory Tract Infection Hx - electronic parts designer Hx Respiratory Tract Infection No 12/12/24 13:17 STOP Sleep Apnea STOP Sleep Apnea - electronic parts designer: STOP Sleep Apnea - electronic parts designer Hx Hypertension Yes 12/12/24 13:17 Hx Sleep Apnea Yes: NON COMPLIANT 12/12/24 13:17 CPAP No 12/12/24 13:17 BIPAP No 12/12/24 13:17 Do you snore loudly (louder than talking or can be heard Do you often feel tired/ fatigued/ sleepy during daytime? Has anyone observed you stop breathing during sleep? STOP Results Positive 12/12/24 13:17 QUESTION #5 FULL TEXT : Do you snore loudly (louder than talking or can be heard through closed doors)? 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 Specify any problems Hx of Preganancy in last 3 N/A 12/12/24 13:17 Months Nurse Filling Out Transfusion NBUCHER 12/12/24 13:17 & Questions: Date: 12/12/24 12/12/24 13:17 Time: 13:18 12/12/24 13:17 Patient unable to answer at this time (ie. confused, unrespo /Reproduction History /Reproductive History - electronic parts designer: /Reproductive Hx- electronic parts designer Hx Now No 12/12/24 13:17 Gestational Age (in weeks): EDC: Hx Hx Para Hx Section SAB No 12/12/24 13:17 Does the father of the baby or his family experience fever w Father of the baby Malignant Hypertension history comment Active Medications Active Medications: Current Medications Generic Name Dose Route Start Last Admin Trade Name Freq PRN Reason Stop Dose Admin Lactated Ringer's 1,000 mls @ 15 mls/hr 01/11/25 08:30 01/11/25 08:30 IV 15 mls/hr .Q48H EMERSON Administration PFSH Medical History Cardiology follow-up encounter Lymphedema Schizoaffective disorder GERD (gastroesophageal reflux disease) Diabetes Gastric reflux Smoker Asthma History of echocardiogram History of CHF (congestive heart failure) Hypertension Eosinophilic esophagitis Thrombocytopenia GERD without esophagitis Bipolar disorder COPD (chronic obstructive pulmonary disease) Asymptomatic gallstones Unintentional weight loss Hyperplastic colon polyp Type 2 diabetes mellitus Osteoarthritis DOMENICO (obstructive sleep apnea) Schizophrenia Hyperlipidemia Angina pectoris Home Medications Medication Instructions Recorded Last Taken Type budesonide-formoterol HFA 160 2 puff inhalation BID 01/10/25 History mcg-4.5 mcg/actuation aerosol inhaler (Symbicort) cholecalciferol (vitamin D3) 25 50 mcg PO QDAY 5 01/10/25 History mcg (1,000 unit) capsule clozapine 100 mg tablet (Clozaril) 500 mg PO QHS 09/1101/10/25 History divalproex 500 mg tablet,delayed 1,000 mg PO QHS 09/1101/10/25 History release (Depakote) duloxetine 20 mg capsule,delayed 40 mg PO QDAY 01/10/25 History release (Cymbalta) famotidine 20 mg tablet 20 mg PO BID 09/11/24 History fenofibrate 40 mg tablet 48 mg PO QDAY 09/11/2401/11 History furosemide 20 mg tablet (Lasix) 20 mg PO QDAY 09/11/24 01/10/25 History insulin glargine 100 unit/mL (3 40 unit subcut DAILY 0 09/11/24 01/10/25 History mL) subcutaneous pen (Lantus Solostar U-100 Insulin) lactulose 10 gram/15 mL oral 20 g PO BID 09/11/2407/30 History solution metformin 500 mg tablet 500 mg PO BID 09/11/2401/10 History nitroglycerin 0.4 mg sublingual 0.4 mg sublingual Q5-1 5M PRN chest 09/11/24 Unknown History tablet pain potassium chloride 20 mEq 20 meq PO QDAY 09/11/2407/30 History tablet,extended release(part/cryst) (Klor-Con M) sacubitril 97 mg-valsartan 103 mg 1 tab PO BID 01/10/25 History tablet (Entresto) sennosides 8.6 mg-docusate sodium 2 tab-cap PO BID 09/2901/10/25 History 50 mg capsule (Senna Plus) vitamin E (dl, acetate) 180 mg 180 mg PO BID #90 caps 11/09/24 01/10/25 Rx (400 unit) capsule dulaglutide 0.75 mg/0.5 mL 0.75 mg subcut WE 12/12/24 01/10/25 History subcutaneous pen injector (Trulicity) metoprolol succinate 100 mg 100 mg PO DAILY 01/11/25 1 03/12/24 History tablet,extended release 24 hr Allergy/AdvReac Type Severity Reaction Status Date / Time No Known Allergies Allergy Verified 01/11/25 08:14 Family History Father Cancer Lung and Brain Grandmother Cancer Brain Mother Hypertension Surgical History History of percutaneous endoscopic gastrostomy (PEG) History of colonoscopy History of esophagogastroduodenoscopy (EGD) History of surgery on upper extremity History of surgery on lower extremity H/O arthroscopy of hip H/O vasectomy Social History household members: spouse current occupational status: employed Smoking Status: Light Smoker (<10/day) alcohol intake: current substance use type: does not use caffeine: Yes frequency: 5-6 times per week Review of Systems (Anesthesia) ROS Narrative System reviewed and no additional complaints, except as documented. Physical Exam Const alert and oriented x3 Nutritional Appearance: obese Resp normal respiratory effort and normal air movement Auscultation: rhonchi throughout Cardio regular rate, regular rhythm and no murmurs
--- NOTE | 2025-01-11 10:06 | OP.PROVAT_ITS ---
01/11/2025 Rhina Garces [address] [place] [address] Re : Upper GI endoscopy procedure for Jeremías Naranjo Dear Dr. Garces This procedure was performed on January. My impressions and recommendations are as follows: Impressions : - Z-line irregular, 40 cm from the incisors. Biopsied. - Gastric antral vascular ectasia. - Normal examined duodenum. Recommendations : - Discharge patient to home. - Resume previous diet. - Continue present medications. - Await pathology results. - Repeat upper endoscopy in 1 year for surveillance. My findings are described in the full procedure note, which is enclosed. If I can be of further assistance, please feel free to contact me at . Sincerely, Obed Hollis, 01/11/2025 10:05:37 AM This report has been signed electronically.
--- NOTE | 2025-01-11 10:06 | OP.EGD_ITS ---
Patient Name: Jeremías Naranjo Procedure Date: 01/11/2025 9:43 AM Date of : 1965 Age: 59 Procedure: Upper GI endoscopy Indications: Epigastric abdominal pain, Functional Dyspepsia, Heartburn, Suspected reflux esophagitis, Follow-up of De La Rosa's esophagus Providers: Obed Hollis DO Medicines: Monitored Anesthesia Care Patient Profile: This is a 59 year old male. Refer to note in patient chart for documentation of history and physical. Patient has symptoms of chronic heartburn and chronic nausea. Complications: No immediate complications. Procedure: Pre-Anesthesia Assessment: - Prior to the procedure, a History and Physical was performed, and patient medications and allergies were reviewed. The patient is competent. The risks and benefits of the procedure and the sedation options and risks were discussed with the patient. All questions were answered and informed consent was obtained. Patient identification and proposed procedure were verified by the physician in the pre-procedure area. Mental Status Examination: alert and oriented. Airway Examination: normal oropharyngeal airway and neck mobility. Respiratory Examination: clear to auscultation. CV Examination: normal. Prophylactic Antibiotics: The patient does not require prophylactic antibiotics. Prior Anticoagulants: The patient has taken no anticoagulant or antiplatelet agents. ASA Grade Assessment: II - A patient with mild systemic disease. After reviewing the risks and benefits, the patient was deemed in satisfactory condition to undergo the procedure. The anesthesia plan was to use monitored anesthesia care (MAC). Immediately prior to administration of medications, the patient was re-assessed for adequacy to receive sedatives. The heart rate, respiratory rate, oxygen saturations, blood pressure, adequacy of pulmonary ventilation, and response to care were monitored throughout the procedure. The physical status of the patient was re-assessed after the procedure. After obtaining informed consent, the endoscope was passed under direct vision. Throughout the procedure, the patient's blood pressure, pulse, and oxygen saturations were monitored continuously. The Endoscope was introduced through the mouth, and advanced to the second part of duodenum. The upper GI endoscopy was accomplished without difficulty. The patient tolerated the procedure well. Scope In: 9:55:42 AM Scope Out: 9:58:34 AM Total Procedure Duration Time 0 hours 2 minutes 52 seconds Findings: The Z-line was irregular and was found 40 cm from the incisors. Biopsies were taken with a cold forceps for histology. Verification of patient identification for the specimen was done. Estimated blood loss was minimal. Mild gastric antral vascular ectasia was present in the gastric antrum. The examined duodenum was normal. Impression: - Z-line irregular, 40 cm from the incisors. Biopsied. - Gastric antral vascular ectasia. - Normal examined duodenum. Recommendation: - Discharge patient to home. - Resume previous diet. - Continue present medications. - Await pathology results. - Repeat upper endoscopy in 1 year for surveillance. Procedure Code(s): --- Professional --- 40244, Esophagogastroduodenoscopy, flexible, transoral; with biopsy, single or multiple CPT copyright 2021 [employer]. All rights reserved. The codes documented in this report are preliminary and upon manipulator operator review may be revised to meet current compliance requirements. Obed Hollis DO 01/11/2025 10:05:37 AM This report has been signed electronically. Number of Addenda: 0 Note Initiated On: 01/11/2025 9:43 AM
--- NOTE | 2025-01-11 10:15 | PCM.POST.ANE ---
Anesthesia: Postop Eval I Current Vital Signs Temperature: 97.2 F Pulse Rate: 88 Blood Pressure: 123/82 Respiratory Rate: 18 Pulse Ox: 97 Oxygen Delivery Method: Room Air Assessment Airway patent: Yes Spontaneous unlabored respirations: Yes Mental status: Awake and Calm nausea: No Vomiting: No Anesthesia Complication: No Fluid Hydration Crystalloid volume administer (ml): 100 Total IV fluid infused: 100 Progress Note Anesthesia document: Postop Eval 1 completed: Yes
--- NOTE | 2025-01-11 11:29 | PCM.POSTANE2 ---
Anesthesia Postop Eval I Sum Postop Eval Completion status Anesthesia document: Postop Eval 1 completed: Yes Anesthesia Postop Eval I Summary Anesthesia Postop Eval I Summary: Anesthesia Postop Eval I: Assessment Summary Airway patent Yes 01/11/25 10:17 [email or web address] Spontaneous unlabored Yes 01/11/25 10:17 [email or web address] respirations Mental status Awake,Calm 01/11/25 10:17 [email or web address] nausea No 01/11/25 10:17 [email or web address] Vomiting No 01/11/25 10:17 [email or web address] Anesthesia Postop Eval I: Fluid Summary Crystalloid volume administer 100 01/11/25 10:17 [email or web address] (ml) Colloids volume administered ( ml) Blood Product volume administered (ml) Total IV fluid infused 100 01/11/25 10:17 [email or web address] Anesthesia Postop Eval I: Summary Notes Anesthesia Complication No 01/11/25 10:17 [email or web address] Anesthesia Complication Comment: Post-operative progress note Anesthesia: Postop Eval II Evaluation Mental status: Awake Pain Level: 0 nausea: No Vomiting: No Complications Anesthesia Complication: No
== END 2025-01-11 10:51 | disposition home or self-care (01) ==
LOC: EN 07:44 → AC 07:45
PROVIDERS: PCP Internal Medicine Infectious Disease; Referring Provider Internal Medicine Infectious Disease; Visit Provider Internal Medicine Gastroenterology
DX: K21.9 Gastro-esophageal reflux disease without esophagitis (principal); F20.9 Schizophrenia, unspecified; I11.0 Hypertensive heart disease with heart failure; I50.9 Heart failure, unspecified; F31.9 Bipolar disorder, unspecified; J44.9 Chronic obstructive pulmonary disease, unspecified; E66.01 Morbid (severe) obesity due to excess calories; E11.9 Type 2 diabetes mellitus without complications; Z79.4 Long term (current) use of insulin; Z79.51 Long term (current) use of inhaled steroids; K76.0 Fatty (change of) liver, not elsewhere classified; F17.210 Nicotine dependence, cigarettes, uncomplicated; R10.13 Epigastric pain; K31.819 Angiodysplasia of stomach and duodenum without bleeding; E78.5 Hyperlipidemia, unspecified; Z79.899 Other long term (current) drug therapy; Z79.84 Long term (current) use of oral hypoglycemic drugs; Z79.85 Long-term (current) use of injectable non-insulin antidiabetic drugs; Z98.52 Vasectomy status; K22.89 Other specified disease of esophagus; K86.89 Other specified diseases of pancreas
CPT/HCPCS: 43239; 71045; 82962; 88305; 94640; J2405